=== PATIENT | male | born 1945 | race Caucasian/White ===

== ENCOUNTER 2023-08-13 08:19 | Emergency (ER) | payer OTHER, SELFPAY ==
[2023-08-13 08:26] VITALS: BP 126/89
[2023-08-13 08:39] VITALS: BP 138/83
[2023-08-13 09:00] VITALS: BP 135/87
[2023-08-13 09:04] LABS: % Basophils 0.7 % (0-2); % Eosinophils 1.8 % (0-6); % Immature Granulocytes 0.5 % (0-0.5); % Lymphocytes 26.9 % (20.5-51.1); % Monocytes 9.7 % (1.7-9.3); % Neutrophils 60.4 % (42.2-75.2); Absolute Basophils 0.1 10^3/uL (0-0.2); Absolute Eosinophils 0.2 10^3/uL (0-0.7); Absolute Immature Granulocytes 0.1 10^3/uL (0-0.05); Absolute Lymphocytes 2.9 10^3/uL (1.2-3.4); Absolute Monocytes 1.1 10^3/uL (0.1-0.6); Absolute Neutrophils 6.6 10^3/uL (1.4-6.5); Hematocrit 49.3 % (39.0-52.0); Hemoglobin 17.7 g/dL (13.0-18.0); Mean Corp Hgb Conc. 35.9 g/dL (33.0-37.0); Mean Platelet Volume 9.4 fL (7.4-10.4); Nucleated Red Blood Cells % 0 % (-); Platelet Count 443 10^3/uL (130-400); Red Blood Cell Count 5.36 10^6/uL (4.70-6.10); Red Cell Dist. Width 13.7 % (11.5-14.5); White Blood Cell Count 10.9 10^3/uL (4.8-10.8)
--- NOTE | 2023-08-13 09:06 | ED.GENMED ---
History of Present Illness
General
Chief Complaint: Heart Rate Problem
Source: patient
Exam Limitations: none
Time Seen by Provider: 08/13/23 08:28
Nursing documentation reviewed up to this point in time: agreed with
Travel History
Have you had any contact with someone who has COVID-19?: No
Do you have any symptoms of coronavirus? Fever > 100 degrees, chills, cough, shortness of breath, sore throat, loss of taste or smell, muscle aches, or headache?: No
History of Present Illness
History of Present Illness:
78-year-old male presents emergency department complaining of feeling his heart going fast. He denies any chest pain or shortness of breath. This has been ongoing since Saturday. No aggravating or relieving factors. He has been taking extra doses
of diltiazem. He follows with Dr. Valentin. He did not contact his private tutor.
Past History
Past History
ED Past Medical History: Arrthythmia (Paroxysmal atrial fibrillation), GERD, HTN, Hypercholesterolemia and Other (incidental iliac aneurysm, AAA)
ED Past Surgical History: Cardiac (Ablation, Cardioversion X2) and Other (abdominal sarcoma, splenectomy)
Social History
Tobacco: Non-smoker
Alcohol: None
Drug: None
Personal:
Living: with family
Employment: Retired
Family History
Family History: Hypertension; Negative Early CAD or Sudden
Review of Systems
Review of Systems
Allergies reviewed?: Yes
All Other Systems: Not applicable
Constitutional: Reports no symptoms
EENT: Reports no symptoms
Respiratory: Reports no symptoms
Cardiac: Reports palpitations
ABD/GI: Reports no symptoms
: Reports no symptoms
Musculoskeletal: Reports no symptoms
Skin: Reports no symptoms
Neurological: Reports no symptoms
Endocrine: Reports no symptoms
Hematologic/Lymphatic: Reports no symptoms
Psychiatric: Reports no symptoms
Phy Exam
Physical Exam
Physical Exam:
Physical Exam
General: no apparent distress, not acutely ill
Neck: supple. no meningeal signs. normal posterior pharynx
Heart: s1/s2 tachycardia, no murmur. equal radial
pulses.
HEENT: Pupils equal round reactive to light, EOMI
Lungs: no acute respiratory distress. clear bilaterally
Abdomen: normal bowel sounds. not tender. no CVAT
Neuro: alert and oriented. no focal neurological deficits cranial nerves II through XII intact
Skin: no rash
Psychiatric: well kept. interactive and cooperative
Extremities: no edema. no calf tenderness. negative homans. good distal pulses
Course
Orders/Labs/Results
Orders:
Orders
08/13/23 08:21
EKG [Electrocardiogram (*1)] Urgent
Reason for Study: Atrial Fibrillation
EKG- Treatment ONCE
08/13/23 08:39
IV Insert/Care/Rem.- Treatment PRN
08/13/23 08:40
Cardiac Monitoring- Treatment ONCE
08/13/23 08:45
Electrocardiogram (*1) Urgent
Reason for Study: Palpitations
08/13/23 08:48
Complete Blood Count/With Diff Urgent
Comprehensive Metabolic Panel Urgent
Magnesium Urgent
TSH Reflex To Free T4 Urgent
08/13/23 08:50
EKG- Treatment ONCE
Abnormal Lab Results
08/13/23
08:48
WBC 10.9 H 10^3/uL
(4.8-10.8)
MCH 33.0 H pg
(27.0-31.0)
Plt Count 443 H 10^3/uL
(130-400)
Abs Immat Gran (auto) 0.1 H 10^3/uL
(0-0.05)
Absolute Neuts (auto) 6.6 H 10^3/uL
(1.4-6.5)
Absolute Monos (auto) 1.1 H 10^3/uL
(0.1-0.6)
Monocytes % 9.7 H %
(1.7-9.3)
Glucose 111 H mg/dl
(70-99)
Total Bilirubin 2.3 H mg/dl
(0.2-1.3)
08/13/23 08:48
08/13/23 08:48
Vital Signs
Initial and Last Documented VS:
Initial Vital Signs
Temp Pulse Resp BP Pulse Ox
98.3 F 118 16 126/89 95
08/13/23 08:26 08/13/23 08:26 08/13/23 08:26 08/13/23 08:26 08/13/23 08:26
Last Documented Vital Signs
Temp Pulse Resp BP Pulse Ox
98.3 F 76 17 138/83 94
08/13/23 08:26 08/13/23 08:45 08/13/23 08:45 08/13/23 08:39 08/13/23 08:45
MDM/Problems Addressed
Differential Diagnosis Includes:
Atrial flutter
MDM/Problems Addressed:
78-year-old male with atrial flutter, spontaneously converted to sinus rhythm with first-degree AV block. Discussed with Dr. TIMA Bradford, who agrees patient may be discharged and follow-up in office.
Chronic conditions affecting care: Arrhythmia
Acute Exacerbation and/or Progression of Chronic Illness: Arrhythmia
*Pulse Oximetry
Patient hypoxic: no
*EKG
Interpreted by ED Provider?: Yes
EKG Intrepretation Date: 08/13/23
EKG Intrepretation Time: 08:24
Interpretation: abnormal
Comparison EKG: changes noted
Heart Rate: 115
Rate: tachycardiac
Rhythm: atrial flutter
[place]: normal axis
Interval: normal interval
QRS Pattern: normal QRS
Ischemia: no ischemia
*Library Assistant Interpretation
Rate: normal
Interpretation: abnormal
Heart Rate: 70
Rhythm: sinus
*Critical Care Note
Total Time (30-74mins, 75-104mins- exclusive of procedures): Not Applicable
ED Attending Note
-
Portions of this chart may have been created with voice recognition software.� Occasional wrong word or��sound alike� substitutions may have occurred due to the inherent limitations of voice recognition software.
Discharge Plan
Departure
Prescriptions:
No Action
atorvastatin 20 MG tablet
20 mg PO HS
famotidine 20 MG tablet
20 mg PO HS
multivitamin with folic acid [Tab-A-Karen] 1 TABLET tablet
1 tab PO HS
Xarelto 20 MG tablet
20 mg PO HS
dofetilide 250 MCG capsule
250 mcg PO Q12 Qty: 60 0RF
diltiazem HCl 120 MG capsule,extended release 24hr
120 mg PO HS Qty: 1 0RF
Referrals:
Jose C Antoine DO [Family Provider] -
Interventions
Interventions:
*Risk Screen - Suicide Last Done: 08/13/23 08:26
*General Assessment Last Done: 08/13/23 08:26
*Neglect/Abuse Screening Last Done: 08/13/23 08:26
ED- Fall Risk Assessment Last Done: 08/13/23 08:42
*ED COVID-19 Vaccine History Last Done: 08/13/23 08:42
ED- Cardiac Assessment Last Done: 08/13/23 08:43
ED- Pulmonary Assessment Last Done: 08/13/23 08:44
[2023-08-13 09:20] LABS: ALT (SGPT) 38 U/L (0-50); AST (SGOT) 35 U/L (17-59); Albumin 3.9 g/dl (3.5-5.0); Alkaline Phosphatase 100 U/L (38-126); Blood Urea Nitrogen 19 mg/dl (9-20); Calcium 9.1 mg/dl (8.4-10.2); Carbon Dioxide 27 mmol/L (22-30); Chloride 105 mmol/L (98-107); Glucose 111 mg/dl (70-99); Magnesium 2.1 mg/dl (1.6-2.3); Potassium 3.5 mmol/L (3.5-5.1); Sodium 137 mmol/L (135-145); Total Bilirubin 2.3 mg/dl (0.2-1.3); Total Protein 6.8 g/dl (6.3-8.2); eGFR > 60.00
[2023-08-13 09:46] LABS: TSH Reflex To Free T4 0.83 uIU/ml (0.47-4.68)
[2023-08-13 10:00] VITALS: BP 129/88
== END 2023-08-13 10:28 | disposition home or self-care (01) ==
LOC: EMR 08:19
PROVIDERS: EMERGENCY PHYSICIAN Emergency Medicine; FAMILY PHYSICIAN Internal Medicine
DX: I48.92 Unspecified atrial flutter (principal); I44.0 Atrioventricular block, first degree; I48.0 Paroxysmal atrial fibrillation; I10 Essential (primary) hypertension; I72.3 Aneurysm of iliac artery; K21.9 Gastro-esophageal reflux disease without esophagitis; E78.00 Pure hypercholesterolemia, unspecified; M19.90 Unspecified osteoarthritis, unspecified site; Z85.028 Personal history of other malignant neoplasm of stomach; Z85.828 Personal history of other malignant neoplasm of skin; Z90.81 Acquired absence of spleen
CPT/HCPCS: 99284; 80053; 83735; 84443; 85025; 93005

== ENCOUNTER 2024-01-10 06:48 | Emergency (ER) | payer OTHER, SELFPAY ==
[2024-01-10] VITALS (17 sets, daily range): BP systolic 114–142; BP diastolic 75–99; BMI 27.8
[2024-01-10 07:36] LABS: % Eosinophils 2.7 % (0-6); % Immature Granulocytes 0.6 % (0-0.5); % Lymphocytes 23.6 % (20.5-51.1); % Monocytes 11.9 % (1.7-9.3); % Neutrophils 60.2 % (42.2-75.2); Absolute Basophils 0.1 10^3/uL (0-0.2); Absolute Eosinophils 0.2 10^3/uL (0-0.7); Absolute Immature Granulocytes 0.1 10^3/uL (0-0.05); Absolute Lymphocytes 2.1 10^3/uL (1.2-3.4); Absolute Monocytes 1.1 10^3/uL (0.1-0.6); Absolute Neutrophils 5.4 10^3/uL (1.4-6.5); Hematocrit 44.3 % (39.0-52.0); Hemoglobin 16.2 g/dL (13.0-18.0); Mean Corp Hgb Conc. 36.6 g/dL (33.0-37.0); Mean Corpuscular Hgb 32.9 pg (27.0-31.0); Mean Corpuscular Volume 89.9 fL (80.0-94.0); Mean Platelet Volume 9.1 fL (7.4-10.4); Nucleated Red Blood Cells % 0 % (-); Platelet Count 426 10^3/uL (130-400); Red Blood Cell Count 4.93 10^6/uL (4.70-6.10); Red Cell Dist. Width 13.9 % (11.5-14.5); White Blood Cell Count 8.9 10^3/uL (4.8-10.8)
[2024-01-10 07:48] LABS: ALT (SGPT) 25 U/L (0-50); AST (SGOT) 29 U/L (17-59); Albumin 4.2 g/dl (3.5-5.0); Alkaline Phosphatase 101 U/L (38-126); Blood Urea Nitrogen 20 mg/dl (9-20); Calcium 9.3 mg/dl (8.4-10.2); Carbon Dioxide 26 mmol/L (22-30); Chloride 105 mmol/L (98-107); Estimated Creatinine Clearance 78 ml/min; Glucose 109 mg/dl (70-99); Potassium 3.7 mmol/L (3.5-5.1); Sodium 139 mmol/L (135-145); Total Bilirubin 1.6 mg/dl (0.2-1.3); Total Protein 7.3 g/dl (6.3-8.2); eGFR > 60.00
[2024-01-10 07:49] LABS: INR 1.72
[2024-01-10 07:50] LABS: APTT 32.1 Sec (23.4-35.0)
--- NOTE | 2024-01-10 07:51 | ED.GENMED ---
History of Present Illness
<Quinten Stevens PA-C - Last Filed: 01/10/24 11:48>
General
Chief Complaint: Heart Rate Problem
Source: patient
Exam Limitations: none
Time Seen by Provider: 01/10/24 07:29
History of Present Illness
History of Present Illness:
78-year-old male with paroxysmal atrial fibrillation anticoagulated on Xarelto presents with episode of A-fib since Saturday, 5 days ago. He has this intermittently. He has a regimen of which he takes an extra 240 mg of diltiazem. He has been doing
this for the past 4 days without any relief. He states he typically breaks back into a sinus rhythm. He felt himself go into this Saturday evening at 9 PM. He follows with cardiology. He denies lightheadedness shortness of breath chest pain. He
denies any leg swelling.
Past History
<Quinten Stevens PA-C - Last Filed: 01/10/24 11:48>
Past History
ED Past Medical History: Arrthythmia (Paroxysmal atrial fibrillation), GERD, HTN, Hypercholesterolemia and Other (incidental iliac aneurysm, AAA)
ED Past Surgical History: Cardiac (Ablation, Cardioversion X2) and Other (abdominal sarcoma, splenectomy)
Social History
Tobacco: Non-smoker
Alcohol: None
Drug: None
Personal:
Living: with family
Employment: Retired
Family History
Family History: Hypertension; Negative Early CAD or Sudden
Phy Exam
<BRISA Hill Last Filed: 01/10/24 11:48>
Physical Exam
Physical Exam:
General: Comfortable appearing male no acute respiratory distress
HEENT: Normocephalic atraumatic
Heart: Tachycardic and irregular
Lungs: Clear no wheeze
Extremities: No cyanosis or edema
Skin: Warm no rash
Course
<Quinten Stevens PA-C - Last Filed: 01/10/24 11:48>
Orders/Labs/Results
Orders:
Orders
01/10/24 06:56
Electrocardiogram (*1) Urgent
Reason for Study: Atrial Fibrillation
EKG- Treatment ONCE
01/10/24 07:27
Complete Blood Count/With Diff Urgent
Comprehensive Metabolic Panel Urgent
PTT Urgent
Prothrombin Time Urgent
01/10/24 07:48
Diltiazem HCl [Cardizem] 20 mg IV NOW STA
01/10/24 08:43
Diltiazem HCl [Cardizem] 20 mg IV NOW STA
01/10/24 10:00
Propofol [Diprivan] 20 ml .ROUTE .STK-MED
01/10/24 10:09
EKG [Electrocardiogram (*1)] Urgent
Reason for Study: Atrial Fibrillation
EKG- Treatment ONCE
Abnormal Lab Results
01/10/24
07:27
MCH 32.9 H pg
(27.0-31.0)
Plt Count 426 H 10^3/uL
(130-400)
Abs Immat Gran (auto) 0.1 H 10^3/uL
(0-0.05)
Absolute Monos (auto) 1.1 H 10^3/uL
(0.1-0.6)
Immature Gran % 0.6 H %
(0-0.5)
Monocytes % 11.9 H %
(1.7-9.3)
PT 20.0 H Sec
(11.4-14.6)
Glucose 109 H mg/dl
(70-99)
Total Bilirubin 1.6 H mg/dl
(0.2-1.3)
01/10/24 07:27
01/10/24 07:27
Vital Signs
Initial and Last Documented VS:
Initial Vital Signs
Temp Pulse Resp BP Pulse Ox
97.5 F 83 18 141/93 95
01/10/24 06:51 01/10/24 06:51 01/10/24 06:51 01/10/24 06:51 01/10/24 06:51
Last Documented Vital Signs
Temp Pulse Resp BP Pulse Ox
98.0 F 61 13 128/79 95
01/10/24 10:20 01/10/24 11:30 01/10/24 11:30 01/10/24 11:30 01/10/24 11:30
<Dawood Barnhart, DO - Last Filed: 01/10/24 10:20>
Orders/Labs/Results
Orders:
Orders
01/10/24 06:56
Electrocardiogram (*1) Urgent
Reason for Study: Atrial Fibrillation
EKG- Treatment ONCE
01/10/24 07:27
Complete Blood Count/With Diff Urgent
Comprehensive Metabolic Panel Urgent
PTT Urgent
Prothrombin Time Urgent
01/10/24 07:48
Diltiazem HCl [Cardizem] 20 mg IV NOW STA
01/10/24 08:43
Diltiazem HCl [Cardizem] 20 mg IV NOW STA
01/10/24 10:00
Propofol [Diprivan] 20 ml .ROUTE .STK-MED
01/10/24 10:09
EKG [Electrocardiogram (*1)] Urgent
Reason for Study: Atrial Fibrillation
EKG- Treatment ONCE
Abnormal Lab Results
01/10/24
07:27
MCH 32.9 H pg
(27.0-31.0)
Plt Count 426 H 10^3/uL
(130-400)
Abs Immat Gran (auto) 0.1 H 10^3/uL
(0-0.05)
Absolute Monos (auto) 1.1 H 10^3/uL
(0.1-0.6)
Immature Gran % 0.6 H %
(0-0.5)
Monocytes % 11.9 H %
(1.7-9.3)
PT 20.0 H Sec
(11.4-14.6)
Glucose 109 H mg/dl
(70-99)
Total Bilirubin 1.6 H mg/dl
(0.2-1.3)
01/10/24 07:27
01/10/24 07:27
Vital Signs
Initial and Last Documented VS:
Initial Vital Signs
Temp Pulse Resp BP Pulse Ox
97.5 F 83 18 141/93 95
01/10/24 06:51 01/10/24 06:51 01/10/24 06:51 01/10/24 06:51 01/10/24 06:51
Last Documented Vital Signs
Temp Pulse Resp BP Pulse Ox
98.0 F 61 13 128/79 95
01/10/24 10:20 01/10/24 11:30 01/10/24 11:30 01/10/24 11:30 01/10/24 11:30
Procedures
<Dawood Barnhart, DO - Last Filed: 01/10/24 10:20>
Moderate Sedation
ASA Risk Score: Class II
Chart and allergies reviewed: Yes
Consent for anesthesia obtained: Yes
Time out completed (validating right patient & procedure): Yes
Moderate Sedation Start Time(when first medication is given): 10:10
History of difficult intubation: No
Airway free of obstruction: Yes
Patient has a gag reflex: Yes
Patient is able to open mouth: Yes
Patient has no dentures: Yes
Patient has no loose teeth: Yes
Medication administered by Provider during Moderate Sedation: IV Propofol (mg)
Total dose administered: 75
Time drug administered: 10:10
Moderate Sedation Procedure End Time: 10:21
Comment: Time out: 1009
Cardioversion
Indication:: Afib
Performed by:: Dawood Barnhart DO
Synchronized?: Yes
Energy Used: 200 joules
Number of attempts: 1
Successful?: Yes
Complications: None
ASA Risk Score: Class II
Any reaction or bad outcome to prior sedation/anesthesia?: No history of a reaction
Sedation level to be attained: moderate
Chart and allergies reviewed: Yes
Patient reassessed prior to sedation: Yes
Time out completed at (validating right patient & procedure): 10:09
History of difficult intubation: No
Airway free of obstruction: Yes
Patient has a gag reflex: Yes
Patient is able to open mouth: Yes
Patient has no dentures: Yes
Patient has no loose teeth: Yes
Total dose administered: 75
Time drug administered: 10:10
Start Time: 10:10
Stop Time: 10:21
<Quinten Stevens PA-C - Last Filed: 01/10/24 11:48>
MDM/Problems Addressed
Differential Diagnosis Includes:
Patient presents with sensation of rapid heart rate. Consider arrhythmia versus electrolyte abnormality. Watch for hypotension. No signs of heart failure.
EKG reviewed and demonstrate atrial fibrillation with rapid response with a rate of 125.
Patient has an acute on chronic episode of atrial fibrillation. This is not breaking on his own.
Will try Cardizem bolus at 20 mg. Check labs for electrolyte abnormality.
If medication unsuccessful labs okay consider cardioversion.
<Quinten Stevens PA-C - Last Filed: 01/10/24 11:48>
Update Note
Update Note:
Cardizem bolus x 2 with patient persistent in rapid A-fib. Written consent obtained for cardioversion. Sedation provided by emergency room attending. The patient was cardioverted using 200 J with synchronized cardioversion. This converted him
after 1 shock. Repeat EKG shows sinus rhythm with a rate of 62. Patient has recovered from his sedation and has a ride home. Stable for discharge
ED Attending Note
<Quinten Stevens PA-C - Last Filed: 01/10/24 11:48>
-
Portions of this chart may have been created with voice recognition software.� Occasional wrong word or��sound alike� substitutions may have occurred due to the inherent limitations of voice recognition software.
<Dawood Barnhart DO - Last Filed: 01/10/24 10:20>
ED Attending Note
Patient seen and examined by attending physician: Yes
I performed the substantive portion of visit, reviewed & personally made and approve the management plan that is documented in note by myself or ZULEMA.: Yes
ED Attending Note:
I have seen and evaluated the patient with a [id number] encounter. I have spoken to the advance practicer provider and involved in the medical history, the physical exam, medical decision making.
Evaluation and management service: agree unless noted differently below.
Results interpretation: agree unless noted differently below.
Focused HPI: 78-year-old male presenting for recurrent A-fib. He has a history of paroxysmal A-fib that usually resolves with extra diltiazem dosing at home. However, patient has been in persistent A-fib despite increasing his meds. He claims
compliance with Xarelto
Physical exam: Sitting bed comfortably. Heart tachycardic but also irregular
Medical Decision Making: Patient signed consent for cardioversion after 2 Cardizem boluses were given with no resolution of heart rate. Patient tolerated procedure well
Discharge Plan
Departure
Patient Disposition: Home (Routine Discharge)
Date of Disposition: 01/10/24
Time of Disposition: 11:47
Patient with high blood pressure during this ER visit?: No
Discharge Problem:
Atrial fibrillation with rapid ventricular response
Instructions: Atrial Fibrillation (DC), MODERATE SEDATION ADULT
Prescriptions:
No Action
atorvastatin 20 MG tablet
20 mg PO HS
famotidine 20 MG tablet
20 mg PO HS
multivitamin with folic acid [Tab-A-Karen] 1 TABLET tablet
1 tab PO HS
Xarelto 20 MG tablet
20 mg PO HS
dofetilide 250 MCG capsule
250 mcg PO Q12 Qty: 60 0RF
diltiazem HCl 120 MG capsule,extended release 24hr
120 mg PO HS Qty: 1 0RF
Referrals:
Jose C Antoine DO [Family Provider] -
Activity Restrictions/Additional Instructions:
Please return here if worse otherwise continue to follow-up with your stone sawyer.
Interventions
Interventions:
*Risk Screen - Suicide Last Done: 01/10/24 07:20
*General Assessment Last Done: 01/10/24 07:20
*Neglect/Abuse Screening Last Done: 01/10/24 07:20
ED- Fall Risk Assessment Last Done: 01/10/24 07:22
*ED COVID-19 Vaccine History Last Done: 01/10/24 07:20
ED- Cardiac Assessment Last Done: 01/10/24 07:22
ED- Pulmonary Assessment Last Done: 01/10/24 07:22
Discharge Date and Time
Print Language: IRISH
[2024-01-10] MEDS: CARDIZEM 20 MG IV ×2 (08:01→08:46)
== END 2024-01-10 12:31 | disposition home or self-care (01) ==
LOC: EMR 06:48
PROVIDERS: EMERGENCY PHYSICIAN Student in an Organized Health Care Education/Training Program; FAMILY PHYSICIAN Internal Medicine
DX: I48.91 Unspecified atrial fibrillation (principal); K21.9 Gastro-esophageal reflux disease without esophagitis; I10 Essential (primary) hypertension; E78.00 Pure hypercholesterolemia, unspecified; I71.40 Abdominal aortic aneurysm, without rupture, unspecified
CPT/HCPCS: 99283; 92960; 99152; 96374; 96376; 80053; 85025; 85610; 85730; 93005

== ENCOUNTER → 2024-02-12 11:33 | Outpatient (REF) | payer OTHER, SELFPAY | LOC: RAD 11:33 | PROVIDERS: ATTENDING PHYSICIAN Nurse Practitioner Family; FAMILY PHYSICIAN Internal Medicine; OTHER PHYSICIAN Surgery Surgical Oncology | DX: C49.9 Malignant neoplasm of connective and soft tissue, unspecified (principal) | CPT/HCPCS: 71270; 74178; Q9967 ==

== ENCOUNTER 2024-02-13 10:22 | Inpatient (IN) | payer OTHER, SELFPAY ==
[2024-02-13] VITALS (22 sets, daily range): BP systolic 109–144; BP diastolic 76–106; BMI 31.3
--- NOTE | 2024-02-13 07:45 | ED.GENMED ---
History of Present Illness
General
Chief Complaint: Breathing Problem
Time Seen by Provider: 02/13/24 07:36
History of Present Illness
History of Present Illness:
78-year-old male with history of A-fib on Xarelto presents to the emergency department for evaluation of shortness of breath and persistent dry cough. He notes that several weeks ago he opted to see a new retail assistant manager through [facility] who
discontinued his dofetilide and diltiazem and started him on nadolol. Over the past week he has noted symptoms consistent with A-fib and variable heart rates. He states 'I think I am in CHF'. He has been compliant with his Xarelto.
Past History
Past History
ED Past Medical History: Arrthythmia (Paroxysmal atrial fibrillation), GERD, HTN, Hypercholesterolemia and Other (incidental iliac aneurysm, AAA)
ED Past Surgical History: Cardiac (Ablation, Cardioversion X2) and Other (abdominal sarcoma, splenectomy)
Social History
Tobacco: Non-smoker
Alcohol: None
Drug: None
Personal:
Living: with family
Employment: Retired
Family History
Family History: Hypertension; Negative Early CAD or Sudden
Review of Systems
Review of Systems
Allergies reviewed?: Yes
All Other Systems: ROS reviewed and negative except as documented in HPI and ROS
Phy Exam
Physical Exam
Physical Exam:
GEN: Well appearing, NAD, WDWN
Eyes: PERRLA, EOMs intact, no scleral icterus
HENT: NCAT, oral mucosa moist, no JVD
Lungs: Mildly tachypneic, on supplemental oxygen, diminished bibasilar breath sounds
Cardiac: Tachycardic, irregular, no murmurs
Neuro: AO x 3
MSK: No gross deformity or ecchymosis. No edema. No digital clubbing
Skin: No rashes, petechiae. Normal color, no pallor or jaundice.
Psych: Calm, cooperative, proper hygiene
Scores
Heart Failure Risk
Heart Failure Risk Score: Yes
History of Stroke or TIA: No
History of intubation for respiratory distress: No
Heart rate on ED arrival >/= 110: Yes
SaO2 <90% on arrival on room air: Yes
HR >/=110 during 3min walk test (or too ill to perform test): Yes
ECG has acute ischemic changes: Yes
Urea >/=12mmol/L (BUN 33.6mg/dL): No
Serum CO2>/=35mmol/L: No
Troponin I or T elevated to [place] Level (0.4mg/dL): No
NT-proBNP >/=5,000ng/L (5,000pg/ml): Yes
HF Risk Score: 6
Admission Status: VERY HIGH RISK 55.3% Consider admission to hospital
Course
Orders/Labs/Results
Orders:
Orders
02/13/24 07:24
EKG [Electrocardiogram (*1)] Urgent
Reason for Study: Shortness of Breath
EKG- Treatment ONCE
02/13/24 07:34
CXR2 [CR Chest - 2 Views ] Urgent
Comment:
Reason For Exam: shortness of breath
02/13/24 07:43
Diltiazem 125 mg/125 ml Nss [Cardizem] 125 mg in 125 ml .ROUTE .STK-MED
Diltiazem HCl [Cardizem] 25 mg .ROUTE .STK-MED ONE
02/13/24 07:45
Diltiazem 125 mg/125 ml Nss [Cardizem] 125 mg in 125 ml IV PER PROTOCOL
Initial dose in mg/hr, then titrate:: 5
Titrate to keep:: Heart rate 80-100 bpm
Titrate by mg/hr:: 5 mg/hr
Frequency of titrations (minutes):: 15
Maximum dose in mg/hr:: 15
Diltiazem HCl [Cardizem] 20 mg IV NOW STA
02/13/24 07:48
Complete Blood Count/With Diff Urgent
Comprehensive Metabolic Panel Urgent
NT-proBNP Urgent
Troponin I Urgent
02/13/24 08:08
Diltiazem HCl [Cardizem] 25 mg IV NOW STA
02/13/24 08:45
Furosemide [Lasix] 40 mg IV NOW STA
02/13/24 09:52
Admit/Transfer Patient As Directed
Co-Sign Provider:
Level of Care: Inpatient admission
Assign to:: IMU- Intermediate Care
Physician / Group: Shiva Marie
Diagnosis: Atrial fibrillation with Rapid Ventricular Response
Reason for Hospitalization: Atrial Fibrillation
Acute Decompensated Heart Failure
Expected length of stay greater than two midnights?: Yes
ELOS- Estimated Length of Stay in days: 2
I certify the patient meets the requirements for IP care: Yes
02/13/24 09:55
Code Status As Directed
Resuscitation Status: Full Code
Abnormal Lab Results
02/13/24
07:48
WBC 14.9 H 10^3/uL
(4.8-10.8)
RBC 4.37 L 10^6/uL
(4.70-6.10)
MCH 33.0 H pg
(27.0-31.0)
Abs Immat Gran (auto) 0.1 H 10^3/uL
(0-0.05)
Absolute Neuts (auto) 12.6 H 10^3/uL
(1.4-6.5)
Absolute Lymphs (auto) 0.9 L 10^3/uL
(1.2-3.4)
Absolute Monos (auto) 1.3 H 10^3/uL
(0.1-0.6)
Neutrophils % 84.4 H %
(42.2-75.2)
Lymphocytes % 6.2 L %
(20.5-51.1)
Sodium 134 L mmol/L
(135-145)
Carbon Dioxide 21 L mmol/L
(22-30)
BUN 25 H mg/dl
(9-20)
Glucose 125 H mg/dl
(70-99)
Total Bilirubin 3.2 H mg/dl
(0.2-1.3)
02/13/24 07:48
02/13/24 07:48
Vital Signs
Initial and Last Documented VS:
Initial Vital Signs
Temp Pulse Resp BP Pulse Ox
99 F 96 16 144/106 91
02/13/24 07:21 02/13/24 07:21 02/13/24 07:21 02/13/24 07:21 02/13/24 07:21
Last Documented Vital Signs
Temp Pulse Resp BP Pulse Ox
99 F 130 16 123/81 95
02/13/24 07:21 02/13/24 09:45 02/13/24 09:45 02/13/24 09:44 02/13/24 09:45
MDM/Problems Addressed
MDM/Problems Addressed:
78-year-old male arrives in rapid atrial fibrillation with signs of acute congestive heart failure evidenced by hypoxia and elevated BNP as well as pulmonary edema seen on chest x-ray. CHF is likely on the basis of uncontrolled A-fib. He recently
discontinued antiarrhythmic and calcium channel yvonne in favor of beta-yvonne at the discretion of an outside retail assistant manager. He will be admitted for IV rate control and diuresis. Do not feel he is a suitable candidate for cardioversion given the
acute decompensated CHF making sedation quite complicated
Comment
Comment:
EKG independently interpreted by me shows rapid atrial fibrillation at a rate of [address] depressions likely subendocardial ischemia, QTc of 441
*Critical Care Note
Total Time (30-74mins, 75-104mins- exclusive of procedures): 40 minutes
comment:
Critical care time: 40 minutes
Critical care time was exclusive of: Separately billable procedures, treating other patients, and teaching time
Critical care was necessary to treat or prevent imminent or life-threatening deterioration of the following conditions: Rapid atrial fibrillation/decompensated CHF
Critical care time spent personally by me on the following activities:
[x] Review of old charts
[x] Obtaining history from patient or surrogate
[x] Ordering and review of the laboratory studies
[x] Ordering and review of radiographic studies
[x] Ordering and performing treatments and interventions
[x] Patient patient's response to treatment
[x] Development of treatment plan with patient or surrogate
ED Attending Note
-
Portions of this chart may have been created with voice recognition software.� Occasional wrong word or��sound alike� substitutions may have occurred due to the inherent limitations of voice recognition software.
Discharge Plan
Departure
Patient Disposition: Admit
Date of Disposition: 02/13/24
Time of Disposition: 08:46
Admit to: IMU
Presentation/result/management discussed w/ accepting MD/DO: Hospitalist
Discharge Problem:
Atrial fibrillation, rapid, Acute decompensated heart failure
Interventions
Interventions:
*Risk Screen - Suicide Last Done: 02/13/24 07:21
*General Assessment Last Done: 02/13/24 07:21
*Neglect/Abuse Screening Last Done: 02/13/24 07:21
ED- Fall Risk Assessment Last Done: 02/13/24 07:40
*ED COVID-19 Vaccine History Last Done: 02/13/24 07:40
ED- Cardiac Assessment Last Done: 02/13/24 07:40
ED- Pulmonary Assessment Last Done: 02/13/24 07:40
[2024-02-13] MEDS: CARDIZEM 20 MG IV (07:48)
[2024-02-13] MEDS: CARDIZEM 125 IV ×2 (07:49→16:52)
[2024-02-13 07:58] LABS: % Basophils 0.4 % (0-2); % Eosinophils 0.1 % (0-6); % Immature Granulocytes 0.5 % (0-0.5); % Lymphocytes 6.2 % (20.5-51.1); % Monocytes 8.4 % (1.7-9.3); % Neutrophils 84.4 % (42.2-75.2); Absolute Basophils 0.1 10^3/uL (0-0.2); Absolute Immature Granulocytes 0.1 10^3/uL (0-0.05); Absolute Lymphocytes 0.9 10^3/uL (1.2-3.4); Absolute Monocytes 1.3 10^3/uL (0.1-0.6); Absolute Neutrophils 12.6 10^3/uL (1.4-6.5); Hematocrit 40.2 % (39.0-52.0); Hemoglobin 14.4 g/dL (13.0-18.0); Mean Corp Hgb Conc. 35.8 g/dL (33.0-37.0); Mean Platelet Volume 10.1 fL (7.4-10.4); Nucleated Red Blood Cells % 0.1 % (-); Platelet Count 334 10^3/uL (130-400); Red Blood Cell Count 4.37 10^6/uL (4.70-6.10); Red Cell Dist. Width 13.7 % (11.5-14.5); White Blood Cell Count 14.9 10^3/uL (4.8-10.8)
[2024-02-13] MEDS: CARDIZEM 25 MG IV (08:13)
[2024-02-13 08:16] LABS: ALT (SGPT) 35 U/L (0-50); AST (SGOT) 41 U/L (17-59); Albumin 3.9 g/dl (3.5-5.0); Alkaline Phosphatase 82 U/L (38-126); Blood Urea Nitrogen 25 mg/dl (9-20); Calcium 9.3 mg/dl (8.4-10.2); Carbon Dioxide 21 mmol/L (22-30); Chloride 103 mmol/L (98-107); Estimated Creatinine Clearance 57 ml/min; Glucose 125 mg/dl (70-99); Potassium 4.2 mmol/L (3.5-5.1); Sodium 134 mmol/L (135-145); Total Bilirubin 3.2 mg/dl (0.2-1.3); Total Protein 6.6 g/dl (6.3-8.2); eGFR 55.53
[2024-02-13 08:22] LABS: NT-proBNP 5370 pg/ml; Troponin I < 0.012 ng/ml
--- NOTE | 2024-02-13 08:58 | EDRN ---
the pt is resting in stretcher in the lowest position, side rails up x2, call wagner within reach, HOB elevated, the pt is currently still in Afib in the 120's with Cardizem gtt @ 15mg/hour, no c/o chest pain, the pt stated to this RN that SOB has
decreased, the pts Sp02 was 92% on 2L NC, this RN notified the provider Khris BAUTISTA and this RN titrated the pts 02 up to 4L NC, the pts Sp02 is currently 96%, last BP 121/87 (97), will continue to monitor the pt closely
--- NOTE | 2024-02-13 09:06 | HPS.HSE ---
Addendum entered and electronically signed by Saurabh Simmons MD, Resident 02/18/24 10:09:
Per CDI clarification. #Assessment change.
Patient with
1. Acute Hypoxemic Respiratory Failure
Addendum entered and electronically signed by Shiva Marie MD 02/13/24 20:49:
Attending Addendum-
I performed a history and physical exam of the patient and discussed his management with the resident. I reviewed the resident's note and agree with the documented findings and plan of care CC/HPI- Patient presents from home for sob and cough. Feels
that he is in a fib and has been consistent for 7 days. Has not reached out to PCP or lighting technician. Recently taken off tikosyn and cardizem and switched to nadolol. In ed found to be in CHF and rapid a fib. Full 12 point ROS reviewed and negative
except as documented Exam- vitals reviewed in EMR GEN-nad heart irreg irreg and tachycardic, lungs crackles at bases abd soft LE no edema Plan:
# Acute Hypoxemic Respiratory Failure
- from CHF and rapid a fib
- wean o2 as tolerated
# Rapid Atrial Fibrillation
- cont cardizem gtt for now
- DC nadolol
- cards c/s
- may attempt CV and and or rhythm controlling meds as patient is symptomatic
- cont xarelto
# AE HFmrEF
- cont IV lasix
- daily weights fluid restrict
- check echo
- cards c/s
- check BMP in am
# Leukocytosis
- trend
- seems more stress related
- no signs of infection
- repeat CBC in am
# KEYUR
- likely prerenal from CHF
- repeat BMP in am
- check feurea if worsens
# HLD
- cont atorvastatin
# Gerd
- cont famotidine
DVT-p- xarelto
Dispo eventual DC home with HC
Time spent coordinating care, review of plan of care with resident, personally reviewed previous records in EMR, med rec, labs, radiology, d/w nursing�- 76 mins
Original Note:
Family Physician
-
Family Physician: Jose C Antoine
Chief Complaint
-
A-fib with RVR
History of Present Illness
This is an 78-year-old male with past medical history of A-fib on Xarelto, GERD, hypertension, hypercholesterolemia who presents to ED for symptoms of persistent dry cough and shortness of breath. Patient reports nonproductive cough that started
last night. He reports shortness of breath has been ongoing for the past 3 days. He was recently seen in ER 01/02/2024 and was found to be in rapid A-fib. Patient had CV in ER. He reports he follows Dr. Valentin outpatient but did seek a
second opinion from lighting technician at [place] 2 weeks ago who told him to stop Tikosyn and Cardizem and instead put him on rate control therapy with nadolol 20 mg twice daily. Today, he reports he felt fatigued since this change was made, as well as
shortness of breath that started 3 days ago and new onset nonproductive cough that started last night. Hence he decided to come to the ED for evaluation.
Medical History
Past Medical History
Past Medical History: Reports Other (Proximal atrial fibrillation, GERD, hypertension, hypercholesterolemia, incidental iliac aneurysm, )
Past Surgical History: Reports Other (Cardiac ablation 2013, cardioversion x 2, splenectomy)
Social History
Tobacco: Non-smoker
Alcohol: None
Drug: None
Personal:
Living: With Family
Employment: Retired
Family History
Family History: Not pertinent
Allergies / Home Medications
Allergies reflects when Allergies were last updated in [employer] [facility].
Home Medications with original date entered in [employer] [facility]
Allergy/Medication List:
Allergies
Allergy/AdvReac Type Severity Reaction Status Date / Time
No Known Drug Allergies Allergy Unknown Unknown Verified 02/13/24 07:20
Home Medications
atorvastatin 20 mg tablet 20 mg PO HS High cholesterol 03/31/13
famotidine 20 mg tablet 20 mg PO HS Gastrointestinal issue 01/19/19
multivitamin with folic acid 400 mcg tablet (Tab-A-Karen) 1 tab PO HS Supplement 01/19/19
rivaroxaban 20 mg tablet (Xarelto) 20 mg PO HS Blood clot prevention/tx 09/21/20
dextromethorphan-guaifenesin 30 mg-600 mg tablet extended hr (Mucinex DM) 1 tab PO [id number] PRN cough 02/13/24
nadolol 20 mg tablet 20 mg PO QPM 02/13/24
Review of Systems
-
Respiratory: Reports See HPI
Cardiac: Reports See HPI
Physical Exam
Vital Signs
Vital Signs
Temp Pulse Resp BP Pulse Ox
99 F 124 27 121/87 96
02/13/24 07:21 02/13/24 08:56 02/13/24 08:56 02/13/24 08:56 02/13/24 08:56
Physical Exam
General: No Apparent Distress and Conversant
HEENT: NormoCephalic and Anicteric
Respiratory: Rales (Bibasilar); No Wheezes, Crackles or Non Labored Respirations
Cardiac: S1/S2, Irregular Rhythm and JVD; No Murmur
GI: Soft, Non Tender, Non Distended and Normal Bowel Sounds
Musculoskeletal: No Clubbing, No Cyanosis and No Edema
Skin: Warm and Dry
Neuro: Awake, Alert, Oriented and AO x 3
Psych: Calm and Intact Judgment/Insight
Laboratory Results
-
02/13/24 07:48
02/13/24 07:48
Laboratory Results
Total Bilirubin 3.2 mg/dl (0.2-1.3) H 02/13/24 07:48
AST 41 U/L (17-59) 02/13/24 07:48
ALT 35 U/L (0-50) 02/13/24 07:48
Alkaline Phosphatase 82 U/L (38-126) 02/13/24 07:48
Troponin I < 0.012 ng/ml 02/13/24 07:48
Data Reviewed
-
Diagnostic Radiology: Report Reviewed by me and Discussed with Physician
Impression/Plan
-
Impression:
Acute HF unknown EF
Acute hypoxic respiratory insufficiency secondary to above
Atrial fibrillation with RVR
Leukocytosis
Conditions prior to admission
Hypertension
GERD
Hypercholesterolemia
Incidental iliac aneurysm findings
PVCs
History of stromal tumor s/p 2010
Plan
#Acute HF unknown EF
#Acute hypoxic respiratory insufficiency secondary to above
-BNP 5370
-Troponin 0.012
-Initiated on Lasix 40 mg IV x 1 in the ER
-Cardiology input appreciated
-Continue Lasix 40 mg IV daily
-Fluid restrict
-Daily weights
-I's and O's
-CXR patchy airspace opacities bilaterally consistent with pulmonary edema. No definite pleural effusion. No pneumothorax
-Echo ordered, currently pending
-Previous echo [facility] 09/22/2020 with EF 45% in the setting of persistent and rapid A-fib.
-O2 sats 96% on 4L oxygen on presentation
-Wean O2 as tolerated
-Follow BMP
#Atrial fibrillation with rapid RVR
-Cardizem drip initiated in the ER
-Cardiology input appreciated
-Amiodarone load with 400 mg TID for rate/rhythm control
-Continue anticoagulation with Xarelto
#Leukocytosis
Possibly stress-induced
Trend WBC
#Hypertension
-Blood pressure stable.
-Hold nadolol
-Continue IV Lasix diuresis
#GERD
-Continue famotidine
#Hypercholesterolemia
-Continue atorvastatin
#hx of iliac artery aneurysm
-Continue to monitor as outpatient
DVT prophylaxis; Xarelto
CODE STATUS: Full code
[2024-02-13] MEDS: LASIX 40 MG IV (09:09)
--- NOTE | 2024-02-13 09:13 | EDRN ---
Lasix IV was administered per providers orders, this RN educated the pt again on the use of the call wagner when he has to urinate, the pt verbally stated that he understood, HR in the 110-120's, Cardizem currently still @ 15mg/hour, will continue to
monitor the pt closely
--- NOTE | 2024-02-13 09:38 | EDRN ---
the pt pressed the call wagner and this RN entered the pts room, the pt stated that he needed to urinate, this RN unhooked the pt and the pt was able to ambulate to the bathroom and back with no issues, the pt had slight c/o SOB, the pt was placed
back on the monitor, the pt is resting in stretcher in the lowest position, side rails up x2, call wagner within reach, will continue to monitor the pt closely
--- NOTE | 2024-02-13 11:04 | EDRN ---
HOLD orders processed for the pt
--- NOTE | 2024-02-13 12:18 | EDRN ---
the pt is resting in stretcher in the lowest position, side rails up x2, HOB elevated, call wagner within reach, no s/s of distress, the pt is currently still in Afib in the 110-120's, the pt is currently still on Cardizem @ 15mg/hour, no c/o chest
pain, no c/o SOB currently, the pt is currently still on 4L NC Sp02 96%, the pt did order his lunch, the pt also continues to use the urinal with no issues, will continue to monitor the pt closely
--- NOTE | 2024-02-13 12:57 | CON.CAR ---
Addendum entered and electronically signed by Jose Love DO 02/13/24 16:32:
I saw and examined the patient.
The Shorthand Reporter's note was reviewed and I agree with the note.
Comment:
PCP: Dr. Antoine
Primary Bessemer Converter Blower: Dr. Valentin
Impression:
Acute HF unknown EF
Recurrent Afib
Previously paroxysmal Afib with PVI 2012 and 2016
previous sotalol therapy, stopped due to ineffectiveness 04/2020
most recent CV in [facility] 01/10/24
Chronic Tikosyn therapy from 04/2020 to 01/2024
Chronic Xarelto OAC
HTN
1st degree av block
Hyperlipidemia
PVCs
h/o stromal tumor s/p resection 2010
JENN[facility]ER 03/29/20: EF 60-65%, mod dilated LA, mildly dilated RA, no thrombus detected in KYLE, mild MR, mild AR
JENN[facility]ER 09/22/20: EF 45%, mild global hypokinesis normal RV size and function, mild to moderate MR, mild central aortic regurgitation
Plan:
Cont IV lasix diuresis
Check echo to evaluate left ventricular systolic function. Last TTE had EF 45%.
Long discussion regarding his recurrent atrial fibrillation and history of PVI x 2. He recently saw Dr. Bueno at [facility] for a second opinion and was taken off his Tikosyn and started on nadolol which she did not tolerate. He wants to continue to
follow with Dr. Valentin. Discussed amiodarone load with 400 mg TID while we continue to diurese and if he fails to covert over the admission and pending his rate control could consider cardioversion prior to d/c vs outpt. He will then follow up with
Dr Valentin to discuss further rhythm control and possible repeat PVI. Patient was previously on sotalol and Tikosyn, but both were stopped due to ineffectiveness. Patient had PVIs 2012 and 2016. Apparently cannot have Convergent MAZE due to
previous stromal surgery.
Trop negative.
He says he has not missed any doses of Xarelto
HPI: -Patient came to ER today with symptoms of orthopnea that started last night and is now being admitted with heart failure and cardiology has been consulted. As you recall the patient has a history of paroxysmal atrial fibrillation and had
previous PVI in 2012 and 2016. He recurred following his 2017 ablation and at that time was on sotalol which was discontinued in favor of Tikosyn. There was previous consideration for convergent maze, but previous stromal tumor incision made him
high risk and MAZE was not pursued. Patient was seen in ER on 01/02/2024 was found to be in rapid A-fib. Patient had CV in ER, but feels he recurred 01/15/24. Patient called the office to report recurrence of atrial fibrillation and he was
offered an office visit to discuss another ablation, but instead on the recommendation of physician friends decided to pursue a second opinion at [facility]. He saw the [facility] wireless sales consultant within the last 1 to 2 weeks and they had him stop Tikosyn and
Cardizem and instead put him on rate control therapy with nadolol 20 mg twice daily. He says he felt incredibly fatigued with twice daily dosing and that within the last week the dose was cut to nadolol 20 mg daily. He says that the [facility]
wireless sales consultant told him he was in A-fib in their office that day, but he did not feel that he was. Since the Tikosyn was stopped however he became increasingly symptomatic and felt that he was in A-fib. In the last 2 to 3 days he has started with
shortness of breath, bloating and orthopnea. He has not been sleeping due to orthopnea and nonproductive cough so he came to ER today and is being admitted with acute HF.
�
Original Note:
Consultation
Consultation Request
Date/Time Consultation Requested: 02/13/24
Date/Time Consultation Performed: 02/13/24
Requesting Provider: Dr. Marie
Performing Provider: Dr. Love
Reason for Consultation: Acute HF, Afib in RVR
Medical History
-
History of Present Illness:
Patient came to ER today with symptoms of orthopnea that started last night and is now being admitted with heart failure and cardiology has been consulted. As you recall the patient has a history of paroxysmal atrial fibrillation and had
previous PVI in 2012 and 2016. He recurred following his 2017 ablation and at that time was on sotalol which was discontinued in favor of Tikosyn. There was previous consideration for convergent maze, but previous stromal tumor incision made him
high risk and MAZE was not pursued. Patient was seen in ER on 01/02/2024 was found to be in rapid A-fib. Patient had CV in ER, but feels he recurred 01/15/24. Patient called the office to report recurrence of atrial fibrillation and he was
offered an office visit to discuss another ablation, but instead on the recommendation of physician friends decided to pursue a second opinion at [facility]. He saw the [facility] wireless sales consultant within the last 1 to 2 weeks and they had him stop Tikosyn and
Cardizem and instead put him on rate control therapy with nadolol 20 mg twice daily. He says he felt incredibly fatigued with twice daily dosing and that within the last week the dose was cut to nadolol 20 mg daily. He says that the [facility]
wireless sales consultant told him he was in A-fib in their office that day, but he did not feel that he was. Since the Tikosyn was stopped however he became increasingly symptomatic and felt that he was in A-fib. In the last 2 to 3 days he has started with
shortness of breath, bloating and orthopnea. He has not been sleeping due to orthopnea and nonproductive cough so he came to ER today and is being admitted with acute HF.
PMH:
h/o HFpEF admission 2020
Previously paroxysmal Afib with PVI 2012 and 2016
previous sotalol therapy, stopped due to ineffectiveness 04/2020
[facility] 01[facility]10[facility]
Chronic Tikosyn therapy from 04/2020 to 01/2024
Chronic Xarelto OAC
HTN
1st degree av block
Hyperlipidemia
PVCs
h/o stromal tumor s/p resection 2010
Past Medical History
Past Medical History: Other (in HPI)
Past Surgical History: Cardiac (PVI 2012 and 2016), Tonsilectomy and Other (stromal tumor resection and splenectomy)
Social History
Tobacco: Non-Smoker
Alcohol: Occasional
Drug: None
Personal:
Living: With Family
Family History
Family History: CAD and Cancer
Allergies / Home Medications
Allergy/AdvReac Type Severity Reaction Status Date / Time
No Known Drug Allergies Allergy Unknown Unknown Verified 02/13/24 07:20
�Medication �Instructions �Recorded �Confirmed �Type
atorvastatin 20 mg tablet 20 mg PO HS High cholesterol 03/31/13 02/13/24 History
famotidine 20 mg tablet 20 mg PO HS Gastrointestinal issue 01/19/19 02/13/24 History
multivitamin with folic acid 400 1 tab PO HS Supplement 01/19/19 02/13/24 History
mcg tablet (Tab-A-Karen)
rivaroxaban 20 mg tablet (Xarelto) 20 mg PO HS Blood clot 09/21/20 02/13/24 History
prevention/tx
dextromethorphan-guaifenesin 30 1 tab PO [id number] PRN cough 02/13/24 02/13/24 History
mg-600 mg tablet extended
hr (Mucinex DM)
nadolol 20 mg tablet 20 mg PO QPM Blood Pressure 02/13/24 02/13/24 History
Review of Systems
-
History Source: Patient
All other systems: Negative unless noted
Physical Exam
Vital Signs
Temp Pulse Resp BP Pulse Ox
98.5 F 122 19 126/88 96
02/13/24 12:23 02/13/24 12:23 02/13/24 12:23 02/13/24 12:23 02/13/24 12:23
GEN: No distress, awake, alert, oriented x3
HEENT: EOMI, MMM
LUNGS: Bibasilar rales without wheeze
CV: Irreg irreg and fast, S1/S2, difficult to appreciate murmur
ABD: soft, BS+, NT, ND
EXT: No clubbing, cyanosis, lesions or edema B/L
NEURO: Gross non-focal
SKIN: Warm, pink and dry. No rash
Lab Results
02/13/24 07:48
02/13/24 07:48
Troponin I < 0.012 ng/ml 02/13/24 07:48
Npe-[place] Pept 5370 pg/ml 02/13/24 07:48
Impression / Plan
-
PCP: Dr. Antoine
Primary Bessemer Converter Blower: Dr. Alcala
Impression:
Acute HF unknown EF
Persistent Afib
Previously paroxysmal Afib with PVI 2012 and 2016
previous sotalol therapy, stopped due to ineffectiveness 04/2020
most recent CV in [facility] 01/10/24
Chronic Tikosyn therapy from 04/2020 to 01/2024
Chronic Xarelto OAC
HTN
1st degree av block
Hyperlipidemia
PVCs
h/o stromal tumor s/p resection 2010
JENN[facility]ER 03/29/20: EF 60-65%, mod dilated LA, mildly dilated RA, no thrombus detected in KYLE, mild MR, mild AR
JENN[facility]ER 09/22/20: EF 45%, mild global hypokinesis normal RV size and function, mild to moderate MR, mild central aortic regurgitation
Plan:
-Patient came to ER today with symptoms of orthopnea that started last night and is now being admitted with heart failure and cardiology has been consulted. As you recall the patient has a history of paroxysmal atrial fibrillation and had
previous PVI in 2012 and 2016. He recurred following his 2017 ablation and at that time was on sotalol which was discontinued in favor of Tikosyn. There was previous consideration for convergent maze, but previous stromal tumor incision made him
high risk and MAZE was not pursued. Patient was seen in ER on 01/02/2024 was found to be in rapid A-fib. Patient had CV in ER, but feels he recurred 01/15/24. Patient called the office to report recurrence of atrial fibrillation and he was
offered an office visit to discuss another ablation, but instead on the recommendation of physician friends decided to pursue a second opinion at [facility]. He saw the [facility] wireless sales consultant within the last 1 to 2 weeks and they had him stop Tikosyn and
Cardizem and instead put him on rate control therapy with nadolol 20 mg twice daily. He says he felt incredibly fatigued with twice daily dosing and that within the last week the dose was cut to nadolol 20 mg daily. He says that the [facility]
wireless sales consultant told him he was in A-fib in their office that day, but he did not feel that he was. Since the Tikosyn was stopped however he became increasingly symptomatic and felt that he was in A-fib. In the last 2 to 3 days he has started with
shortness of breath, bloating and orthopnea. He has not been sleeping due to orthopnea and nonproductive cough so he came to ER today and is being admitted with acute HF.
-He feels a bit better following Lasix 40 mg IV x1 in the ER. He was not taking a diuretic prior to admission. Recommend Lasix 40 mg IV daily to start and if diuretic response slows then would increase to 40 mg IV BID.
-Check echo, ordered by me
-EF was 45% by [facility] 09/22/20, but that was in the setting of persistent and rapid Afib. Pending EF will need to adjust medical therapy.
-Suspect acute HF is related to rapid atrial arrhythmia so would prefer to follow a rhythm control strategy. Patient was previously on sotalol and Tikosyn, but both were stopped due to ineffectiveness. Patient had PVIs 2012 and 2016. He cannot have
Convergent MAZE due to previous stromal surgery. He would be interested in a 3rd PVI if he is a candidate and would be willing to consider amiodarone for rate/rhythm control as a bridge.
-He says he has not missed any doses of Xarelto
-Troponin undetectable x1, no chest pain and ECG without acute ischemic changes as reviewed by me. Would not check additional Troponin levels.
[2024-02-13] MEDS: PACERONE 400 MG PO ×2 (16:52→22:28)
[2024-02-13] MEDS: XARELTO 20 MG PO (16:54)
--- NOTE | 2024-02-13 18:13 | PTCARENOTE ---
Pt admitted from ED with rapid atrial fib and CHF. Pt with non productive cough, states he had a negative covid test at home today. Pt on diltiazem infusion at 15mg/hr. Telemetry shows rapid atrial fib at a rate @130's with SBP's 130's. Pt started
on amiodarone.
[2024-02-13] MEDS: PEPCID 20 MG PO (22:27)
[2024-02-13] MEDS: LIPITOR 20 MG PO (22:28)
[2024-02-13] MEDS: THERAGRAN 1 TABLET PO (22:28)
[2024-02-14] VITALS (13 sets, daily range): BP systolic 109–128; BP diastolic 68–92; BMI 30.3
[2024-02-14] MEDS: ROBITUSSIN DM 10 ML PO (00:02)
[2024-02-14] MEDS: CARDIZEM 125 IV ×3 (00:06→17:13)
--- NOTE | 2024-02-14 01:08 | PTCARENOTE ---
Remains in A-fib. Cardizem drip infusing at 15ml/hr. Continues with occasional dry cough, given robitussin po. No c/o of pain.
[2024-02-14 05:43] LABS: % Basophils 0.5 % (0-2); % Eosinophils 0.6 % (0-6); % Immature Granulocytes 0.4 % (0-0.5); % Lymphocytes 7.2 % (20.5-51.1); % Monocytes 14.3 % (1.7-9.3); Absolute Basophils 0.1 10^3/uL (0-0.2); Absolute Eosinophils 0.1 10^3/uL (0-0.7); Absolute Immature Granulocytes 0.1 10^3/uL (0-0.05); Absolute Monocytes 1.9 10^3/uL (0.1-0.6); Absolute Neutrophils 10.4 10^3/uL (1.4-6.5); Hematocrit 35.8 % (39.0-52.0); Hemoglobin 12.8 g/dL (13.0-18.0); Mean Corp Hgb Conc. 35.8 g/dL (33.0-37.0); Mean Corpuscular Hgb 32.7 pg (27.0-31.0); Mean Corpuscular Volume 91.6 fL (80.0-94.0); Mean Platelet Volume 10.3 fL (7.4-10.4); Nucleated Red Blood Cells % 0 % (-); Platelet Count 319 10^3/uL (130-400); Red Blood Cell Count 3.91 10^6/uL (4.70-6.10); Red Cell Dist. Width 13.8 % (11.5-14.5); White Blood Cell Count 13.5 10^3/uL (4.8-10.8)
[2024-02-14 06:20] LABS: Estimated Creatinine Clearance 61 ml/min; eGFR > 60.00
[2024-02-14 06:29] LABS: Blood Urea Nitrogen 25 mg/dl (9-20); Calcium 8.7 mg/dl (8.4-10.2); Carbon Dioxide 25 mmol/L (22-30); Chloride 100 mmol/L (98-107); Glucose 101 mg/dl (70-99); Potassium 3.7 mmol/L (3.5-5.1); Sodium 134 mmol/L (135-145)
[2024-02-14] MEDS: LASIX 40 MG IV (08:48)
[2024-02-14] MEDS: PACERONE 400 MG PO ×3 (08:48→22:14)
--- NOTE | 2024-02-14 09:11 | W.PN.HOSP.TC ---
Addendum entered and electronically signed by Saurabh Simmons MD, Resident 02/18/24 10:11:
Assessment Change.
Patient with
#Persistent Atrial Fibrillation.
Addendum entered and electronically signed by Shiva Marie MD 02/14/24 15:41:
Attending Addendum-
I saw and evaluated the patient. I reviewed the resident�s note and agree with findings and plan as documented in the resident�s note. Full 12 point ROS reviewed and negative except as documented- S: Patient feels less sob but 'had a rough night'
Feels fatigued and has palpitations. Full 12 point ROS reviewed and negative except as documented Exam- vitals reviewed in EMR GEN-nad heart irreg irreg and tachycardic, lungs crackles at bases abd soft LE no edema Plan:
# Acute Hypoxemic Respiratory Failure
- from CHF and rapid a fib
- wean o2 as tolerated, now on RA
# Rapid Atrial Fibrillation
- cont cardizem gtt for now
- DC nadolol
- cards input appreciated
- amiodarone load started
- metoprolol xl added
- echo 02/12-
LV ejection fraction is 45-50%.
Mild to moderate mitral regurgitation. Mild aortic regurgitation.Moderate tricuspid regurgitation.
Trivial pericardial effusion.
Dilated aortic root.
- cont xarelto
- if continues to be in a fib on Saturday- for [facility]ENN[facility] CV
# AE HFmrEF
- cont IV lasix
- daily weights fluid restrict
- down 3 kgs from admission
- check echo- reviewed
- cards input appreciated
- check BMP in am
# Leukocytosis
- resolving
- no signs of infection
- repeat CBC in am
# Hyponatremia-
- hypervolemic
- cont diuresis
- repeat BMP in am
# KEYUR
- resolving
- likely prerenal from CHF
- repeat BMP in am
- check fe urea if worsens
# HLD
- cont atorvastatin
# GERD
- cont famotidine
DVT-p- xarelto
Dispo eventual DC home with HC
Time spent coordinating care, review of plan of care with resident, personally reviewed previous records in EMR, med rec, labs, radiology, d/w nursing�and cards- 55 mins
Original Note:
Today's Communication/Plan
-
See plan :/
Assessment / Plan
Assessment / Plan
Impression:
Acute HFmrEF
Rapid atrial fibrillation
Acute hypoxic respiratory insufficiency secondary to above
Leukocytosis
Conditions prior to admission
Hypertension
GERD
Hyperlipidemia
Incidental iliac aneurysm findings
PVCs
History of stromal tumor s/p 2010
Plan
#Acute hypoxic respiratory insufficiency secondary to Acute HFmrEF and Rapid atrial fibrillation
-Wean O2 as tolerated
#Acute HFmrEF
-Continue IV Lasix 40 mg daily
-Fluid restrict
-Daily weights
-I's and O's
-Echo 02/14/2024 - LV ejection fraction is 45-50%.
-Monitor BMP
#Rapid atrial fibrillation
-Continue Cardizem gtt.
-Amiodarone load with 400 mg TID for rate/rhythm control
-Consideration for cardioversion prior to discharge if patient fails to convert during admission
-Continue anticoagulation with Xarelto
#Leukocytosis
Possibly stress-induced
WBC improving, continue to trend
#Hypertension
-Blood pressure stable during this admission
-d/c nadolol
-Continue IV Lasix
#GERD
-Continue famotidine
# Hyperlipidemia
-Continue atorvastatin
#hx of iliac artery aneurysm
-Continue to monitor as outpatient
DVT prophylaxis; Xarelto
CODE STATUS: Full code
Anticipated Discharge: 24 - 48 hours
Subjective/Interval History
-
Overnight events. Patient with complaints of nonproductive cough overnight. Reports improvement with Robitussin. Overall denies chest pain, shortness of breath, fever, chills. Not in any respiratory distress at this time
Objective Data
-
Labs:
Laboratory Results
02/14/24
05:17
WBC 13.5 H
Hgb 12.8 L
Hct 35.8 L
Plt Count 319
Sodium 134 L
Potassium 3.7
Chloride 100
Carbon Dioxide 25
BUN 25 H
Creatinine 1.2
Glucose 101 H
Calcium 8.7
Vital Signs:
Vital Signs
Temp Pulse Resp BP Pulse Ox
99.3 F 130 20 117/74 93
02/14/24 07:11 02/14/24 08:00 02/14/24 07:11 02/14/24 08:00 02/14/24 07:11
I&O
02/13/24 02/14/24 02/15/24
06:59 06:59 06:59
Output Total 2400 / 2400
Balance -2400 / -2400
Review of Systems
-
All other systems: Reviewed and negative (Except as documented)
Physical Exam
-
General: Well Nourished and No Apparent Distress
HEENT: Normocephalic
Respiratory: Crackles (Mild ); Negative Wheezes or Rhonchi
Cardiac: S1/S2 and Irregular Rhythm
GI: Soft, Nontender, Nondistended and Normal Bowel Sounds
Musculoskeletal: No Cyanosis and No Edema
Skin: Warm and Dry
Neuro: Awake, Alert, Oriented and AO x 3
Psych: Calm and Intact Judgement/Insight
Data Reviewed
-
CT Scan: Report Reviewed by me and Discussed with Physician
[2024-02-14 09:14] LABS: COVID-19 Antigen Negative (Negative)
--- NOTE | 2024-02-14 09:26 | W.PN.CARDCBS ---
Addendum entered and electronically signed by Vincent Allred MD 02/14/24 11:06:
I saw and examined the patient.
The Division Traffic Superintendent's note was reviewed and I agree with the note.
Comment: Briefly, 78-year-old male past medical history of paroxysmal atrial fibrillation presenting in A-fib with RVR decompensated heart failure
Currently on diltiazem drip however heart rates remain elevated
Add metoprolol for goal heart rate less than 110 bpm
If he remains in A-fib on Saturday we will tentatively plan for direct-current cardioversion
Continue Xarelto for cardioembolic prophylaxis
Cont IV Lasix
Wean oxygen as able
Follow daily weights and renal function
Original Note:
Today's Communication / Plan
-
Continue cardizem gtt for rate control
Amiodarone started at 400mg TID
Consider starting Toprol for EF 45% and rate control
Continue IV lasix
Impression / Plan
-
PCP: Dr. Antoine
Primary Drapery Hanger: Dr. Alcala
Impression:
Acute HFmrEF
Persistent Afib
Previously paroxysmal Afib with PVI 2012 and 2016
previous sotalol therapy, stopped due to ineffectiveness 04/2020
most recent CV in [facility] 01/10/24
Chronic Tikosyn therapy from 04/2020 to 01/2024
Chronic Xarelto OAC
HTN
1st degree av block
Hyperlipidemia
PVCs
h/o stromal tumor s/p resection 2010
JENNIFER 03/29/20: EF 60-65%, mod dilated LA, mildly dilated RA, no thrombus detected in KYLE, mild MR, mild AR
JENNIFER 09/22/20: EF 45%, mild global hypokinesis normal RV size and function, mild to moderate MR, mild central aortic regurgitation
Echo 02/13/2024: EF 45-50%, mild cLVH, mild to moderate MR, mild AR, moderate TR, estimated PAP 35-40mmHg, trivial pericardial effusion
Plan:
-Presented with orthopnea and found to be in acute heart failure and rapid atrial fibrillation.
-Diuresing with IV lasix 40mg daily. Weight down to 222lbs today. Weight in ER 230 lbs if accurate.
-Creat improved slightly to 1.2. Negative on I&Os. Continue to follow w/ diuresis
-Remains in rapid atrial fibrillation on review of telemetry.
-Previously was maintained on Tikosyn, however this was discontinued recently as OP. Starting amiodarone load this admission. Continue 400mg TID.
-Follow QTc on EKG. Stable at 441 ms 02/12. Will recheck in AM.
-Continues on Cardizem gtt for now as heart rates remain elevated. Wean as able.
-If patient remains in Afib through the weekend, would consider CV on Saturday, 02/16.
-Echo 02/12 noted mildly reduced EF at 45%, stable compared to prior echo in 2020.
-Given reduced EF with elevated heart rates, would consider starting Toprol XL 12.5mg daily. He reportedly felt poorly with nadolol 20mg BID due to fatigue.
-Suspect heart failure and cardiomyopathy may be related to rapid atrial fibrillation.
-Patient had PVIs 2012 and 2016. He cannot have Convergent MAZE due to previous stromal surgery. He would be interested in a 3rd PVI if he is a candidate.
-Continue Xarelto 20mg daily for anticoagulation.
HPI: Patient came to ER today with symptoms of orthopnea that started last night and is now being admitted with heart failure and cardiology has been consulted. As you recall the patient has a history of paroxysmal atrial fibrillation and had
previous PVI in 2012 and 2016. He recurred following his 2017 ablation and at that time was on sotalol which was discontinued in favor of Tikosyn. There was previous consideration for convergent maze, but previous stromal tumor incision made him
high risk and MAZE was not pursued. Patient was seen in ER on 01/02/2024 was found to be in rapid A-fib. Patient had CV in ER, but feels he recurred 01/15/24. Patient called the office to report recurrence of atrial fibrillation and he was
offered an office visit to discuss another ablation, but instead on the recommendation of physician friends decided to pursue a second opinion at [facility]. He saw the [facility] feeder worker power unit operator within the last 1 to 2 weeks and they had him stop Tikosyn and
Cardizem and instead put him on rate control therapy with nadolol 20 mg twice daily. He says he felt incredibly fatigued with twice daily dosing and that within the last week the dose was cut to nadolol 20 mg daily. He says that the [facility]
feeder worker power unit operator told him he was in A-fib in their office that day, but he did not feel that he was. Since the Tikosyn was stopped however he became increasingly symptomatic and felt that he was in A-fib. In the last 2 to 3 days he has started with
shortness of breath, bloating and orthopnea. He has not been sleeping due to orthopnea and nonproductive cough so he came to ER today and is being admitted with acute HF.
Progress Note - Drapery Hanger
Subjective
Date of Service: February 14, 2024
Feeling better, still in rapid afib. Still on supplemental O2
Objective
Labs:
02/14/24 05:17
02/14/24 05:17
Labs
Hgb 12.8 g/dL (13.0-18.0) L 02/14/24 05:17
Hct 35.8 % (39.0-52.0) L 02/14/24 05:17
Plt Count 319 10^3/uL (130-400) 02/14/24 05:17
Sodium 134 mmol/L (135-145) L 02/14/24 05:17
Potassium 3.7 mmol/L (3.5-5.1) 02/14/24 05:17
BUN 25 mg/dl (9-20) H 02/14/24 05:17
Creatinine 1.2 mg/dL (0.7-1.3) 02/14/24 05:17
Glucose 101 mg/dl (70-99) H 02/14/24 05:17
Troponins
02/13/24
07:48
Troponin I < 0.012
Vital Signs and I&O:
Vital Signs
Temp Pulse Resp BP Pulse Ox
99.3 F 130 20 117/74 93
02/14/24 07:11 02/14/24 08:00 02/14/24 07:11 02/14/24 08:00 02/14/24 07:11
Vital Signs
Temp Pulse Resp BP Pulse Ox
99.3 F 130 20 117/74 93
02/14/24 07:11 02/14/24 08:00 02/14/24 07:11 02/14/24 08:00 02/14/24 07:11
Intake & Output
02/12/24 02/13/24 02/14/24 02/15/24
06:59 06:59 06:59 06:59
Output Total 2400 / 2400
Balance -2400 / -2400
Physical Exam
Physical Exam
GEN: No distress, awake, alert, oriented x3
HEENT: supple, anicteric, mmm
LUNGS: crackles at b/l bases
CV: irregularly irregular, S1/S2, 1/6 syst murmur
EXT: No clubbing or cyanosis, trace edema b/l LE
NEURO: Gross non-focal
SKIN: Warm, dry, no rash
[2024-02-14] MEDS: TOPROL XL 25 MG PO ×2 (10:45→20:07)
--- NOTE | 2024-02-14 11:45 | CM ---
Chart reviewed. Patient is independent of ADLS, lives with his in a [address], [address], 0 [address]. Plan is for the patient to return home. CM to follow
--- NOTE | 2024-02-14 12:25 | PTCARENOTE ---
The patient's temperature was 100.5 earlier. Repeat temp 98.0. No medication was given.
--- NOTE | 2024-02-14 15:04 | PN.CDI ---
CDI
- -
CDI:
Physician Documentation Request
Admit Date: 02/13/24 10:22
Dear Doctor Troy,
Please review the following and provide your response in the progress notes.
Clinical Indicators:
PN, 02/13
#Rapid atrial fibrillation
Cardiology, PN, 02/13
#Persistent Afib
#Previously paroxysmal Afib with PVI 2012 and 2016
Please clarify specificity regarding atrial fibrillation, ...:
Persistent atrial fibrillation - episodes of continuous AF that last more than 7 days and do not self-terminate
Paroxysmal atrial fibrillation - terminates spontaneously or with intervention within 7 days of onset
Other - please specify
Use of terms such as suspected, likely, concern for, or probable (associated with a specific diagnosis that is being evaluated, monitored, or treated as if it exists) are acceptable and can be coded in the inpatient setting, when documented at the
time of discharge.
Thank you,
Kimberlee Lechuga RN BSN CCDS
CDI Specialist
please contact via tiger text
Please use your independent medical judgment in providing your response.
--- NOTE | 2024-02-14 15:12 | PN.CDI ---
CDI
- -
CDI:
Physician Documentation Request
Admit Date: 02/13/24 10:22
Dear Doctor Troy,
Please review the following and provide your response in the progress notes.
Clinical Indicators:
H+P, 02/12
# KEYUR
#- likely prerenal from CHF
Laboratory Tests
02/13/24 02/14/24
07:48 05:17
Creatinine 1.3 1.2
eGFR 55.53 > 60.00
Based on the above information and the clinical indicators in the record, please clarify in the Progress Notes which of the following most accurately represents the patient's renal status:
Acute kidney injury with no underlying CKD(please document support)
Chronic stable CKD, (specify stage)
Acute kidney injury on baseline CKD, (specify stage of CKD)
Other(please specify)
Criteria for KEYUR*
1 Increase in serum creatinine by > or = to 0.3 mg/dL (> or = to 26.5 micromol/L) within 48 hours, OR
2 Increase in serum creatinine to > or = to 1.5 times baseline, which is known or presumed to have occurred within 7 days, OR
3 Urine volume < 0.5 nL/kg/hour for six hours
Stages of Chronic Kidney Disease*
Level Description GFR
G1 Normal or High >90
G2 Mildly decreased 60-89
G3a Mildly to moderately decreased 45-59
G3b Moderately to severely decreased 30-44
G4 Severely decreased 15-29
G5 Kidney failure <15
Use of terms such as suspected, likely, concern for, or probable (associated with a specific diagnosis that is being evaluated, monitored, or treated as if it exists) are acceptable and can be coded in the inpatient setting, when documented at the
time of discharge.
Thank you,
Kimberlee Lechuga RN BSN CCDS
CDI Specialist
please contact via tiger text
Please use your independent medical judgment in providing your response.
*Source: Kidney Disease: Improving Global Outcomes (KDIGO) 2012
--- NOTE | 2024-02-14 15:18 | PTCARENOTE ---
Patient had a 2.34 second pause on the monitor. He was asymptomatic and remains in rapid afib with heart rates in the 120s. Marlin BAUTISTA notified.
--- NOTE | 2024-02-14 15:24 | PN.CDI ---
CDI
- -
CDI:
Physician Documentation Request
Admit Date: 02/13/24 10:22
Dear Doctor Troy,
Please review the following and provide your response in the progress notes.
Clinical Indicators:
ER, 02/12
#...rapid atrial fibrillation with signs of acute congestive heart failure
#...evidenced by hypoxia and elevated BNP as well as
#...pulmonary edema seen on chest x-ray.
H+P, 02/12
# Acute Hypoxemic Respiratory Failure
#...- from CHF and rapid a fib
#...- wean o2 as tolerated
#...shortness of breath has been ongoing for the past 3 days.
#Acute HF unknown EF
#Acute hypoxic respiratory insufficiency secondary to above
#-O2 sats 96% on 4L oxygen on presentation
PN, 02/13
#Acute hypoxic respiratory insufficiency
#...secondary to Acute HFmrEF and Rapid atrial fibrillation
#-Wean O2 as tolerated
O2 2-4 L
Please clarify which of the following accurately represents the patient's respiratory status:
Acute hypoxic respiratory insufficiency
Acute hypoxemic respiratory failure
Hypoxia
Other(please specify)
Additional information for Respiratory Failure:
Recognized criteria for Respiratory Failure (Source: [facility] May 2013)
Symptoms Please indicate type if known
1. Tachypnea, SOB, dyspnea Hypoxic
2. Use of accessory muscles Hypercapnic
3. Pallor or cyanosis Hypoxic and Hypercapnic
4. Anxiety or restlessness
5. Unable to speak in full sentences
Supplemental O2 of > 40% (5LPM) Intubation is not required
Use of terms such as suspected, likely, concern for, or probable (associated with a specific diagnosis that is being evaluated, monitored, or treated as if it exists) are acceptable and can be coded in the inpatient setting, when documented at the
time of discharge.
Thank you,
Kimberlee Lechuag RN BSN CCDS
CDI Specialist
please contact via tiger text
Please use your independent medical judgment in providing your response.
[2024-02-14] MEDS: TESSALON PERLES 200 MG PO ×2 (16:22→22:16)
[2024-02-14] MEDS: XARELTO 20 MG PO (17:13)
[2024-02-14 18:22] LABS: Urine Albumin Trace (Neg - Trace); Urine Bilirubin Negative (Negative); Urine Character Clear (Clear); Urine Color Yellow; Urine Glucose Negative (Negative); Urine Ketone Negative (Negative); Urine Leukocyte Negative (Negative); Urine Nitrite Negative (Negative); Urine Occult Blood Negative (Negative); Urine Urobilinogen Negative (Neg - 1+)
[2024-02-14] MEDS: LIPITOR 20 MG PO (22:14)
[2024-02-14] MEDS: THERAGRAN 1 TABLET PO (22:15)
[2024-02-14] MEDS: PEPCID 20 MG PO (22:15)
[2024-02-15] VITALS (7 sets, daily range): BP systolic 103–126; BP diastolic 68–94; BMI 30.1
--- NOTE | 2024-02-15 00:12 | PTCARENOTE ---
Pt. remains on Cardizem gtt at 15 mg/hr. A-fib on the monitor, 80's-120's, with some ~2 second pauses (rate immediately recovers in the 90's-100's), last BP 125/92. Tessalon Perles given for frequent dry harsh cough. Pt. states they are helpful.
Currently sleeping.
[2024-02-15] MEDS: CARDIZEM 125 IV ×3 (00:28→17:31)
[2024-02-15] MEDS: MELATONIN 5 MG PO ×2 (00:48→22:31)
--- NOTE | 2024-02-15 04:59 | PTCARENOTE ---
Pt. complaining of insomnia at 0030 and feeling SOB when laying down. Stated he hasn't slept since being admitted due to frequent coughing and SOB. Pulse ox 92% RA, crackles present in bilateral bases. 2L O2 placed with much improvement in
symptoms. Pulse ox increased to 95%, SOB improved. Order for melatonin obtained and administered with good results, pt. sleeping soundly when checked on.
[2024-02-15 05:11] LABS: % Basophils 0.5 % (0-2); % Eosinophils 2.4 % (0-6); % Immature Granulocytes 0.5 % (0-0.5); % Lymphocytes 9.1 % (20.5-51.1); % Monocytes 14.1 % (1.7-9.3); % Neutrophils 73.4 % (42.2-75.2); Absolute Basophils 0.1 10^3/uL (0-0.2); Absolute Eosinophils 0.3 10^3/uL (0-0.7); Absolute Immature Granulocytes 0.1 10^3/uL (0-0.05); Absolute Lymphocytes 1.2 10^3/uL (1.2-3.4); Absolute Monocytes 1.9 10^3/uL (0.1-0.6); Hematocrit 37.9 % (39.0-52.0); Hemoglobin 13.5 g/dL (13.0-18.0); Mean Corp Hgb Conc. 35.6 g/dL (33.0-37.0); Mean Corpuscular Hgb 32.9 pg (27.0-31.0); Mean Corpuscular Volume 92.4 fL (80.0-94.0); Mean Platelet Volume 10.5 fL (7.4-10.4); Nucleated Red Blood Cells % 0 % (-); Platelet Count 317 10^3/uL (130-400); Red Cell Dist. Width 13.5 % (11.5-14.5); White Blood Cell Count 13.6 10^3/uL (4.8-10.8)
[2024-02-15 05:33] LABS: Blood Urea Nitrogen 27 mg/dl (9-20); Calcium 8.8 mg/dl (8.4-10.2); Carbon Dioxide 26 mmol/L (22-30); Chloride 100 mmol/L (98-107); Estimated Creatinine Clearance 66 ml/min; Glucose 111 mg/dl (70-99); Potassium 3.4 mmol/L (3.5-5.1); Sodium 133 mmol/L (135-145); eGFR > 60.00
--- NOTE | 2024-02-15 07:41 | W.PN.CARDCBS ---
Today's Communication / Plan
-
Cont IV lasix diuresis. Wt continues to come down. Cr stable. Monitor Is and Os and daily wts. Is and Os negativer over 1700cc.
Replete potassium
Echo reviewed and EF 45-50% overall similar to prior JENNIFER 2020.
Check echo to evaluate left ventricular systolic function. Last TTE had EF 45%.
Cont Amiodarone load with 400 mg TID while we continue to diurese and if he fails to covert over the admission and pending his rate control will consider cardioversion Saturday. He will then follow up with Dr Valentin to discuss further
rhythm control and possible repeat PVI.
Patient was previously on sotalol and Tikosyn, but both were stopped due to ineffectiveness.
Patient had PVIs 2012 and 2016.
Apparently cannot have Convergent MAZE due to previous stromal surgery.
Cont Xarelto. He says he has not missed any doses of Xarelto
Metoprolol 25 mg BID was added for rate control Feb 13
Cont IV Cardizem for now. Titrate down once improved rate control.
Impression / Plan
-
.
PCP: Dr. Antoine
Primary As400 Consultant: Dr. Valentin
Impression:
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
Recurrent Afib
Previously paroxysmal Afib with PVI 2012 and 2016
previous sotalol therapy, stopped due to ineffectiveness 04/2020
most recent CV in [facility] 01/10/24
Chronic Tikosyn therapy from 04/2020 to 01/2024
Chronic Xarelto OAC
HTN
1st degree av block
Hyperlipidemia
PVCs
h/o stromal tumor s/p resection 2010
JENNIFER 03/29/20: EF 60-65%, mod dilated LA, mildly dilated RA, no thrombus detected in KYLE, mild MR, mild AR
JENNIFER 09/22/20: EF 45%, mild global hypokinesis normal RV size and function, mild to moderate MR, mild central aortic regurgitation
Echo 02/13/2024: EF 45-50%, mild cLVH, mild to moderate MR, mild AR, moderate TR, estimated PAP 35-40mmHg, trivial pericardial effusion
Plan:
Presented with orthopnea and found to be in acute heart failure and rapid atrial fibrillation. He recently saw Dr. Bueno at [facility] for a second opinion and was taken off his Tikosyn and started on nadolol which he did not tolerate.
HF likely related to rapid AFib
Cont IV lasix diuresis. Wt continues to come down. Cr stable. Monitor Is and Os and daily wts. Is and Os negativer over 1700cc.
Replete potassium
Echo reviewed and EF 45-50% overall similar to prior JENNIFER 2020.
Check echo to evaluate left ventricular systolic function. Last TTE had EF 45%.
Cont Amiodarone load with 400 mg TID while we continue to diurese and if he fails to covert over the admission and pending his rate control will consider cardioversion Saturday. He will then follow up with Dr Valentin to discuss further
rhythm control and possible repeat PVI.
Patient was previously on sotalol and Tikosyn, but both were stopped due to ineffectiveness.
Patient had PVIs 2012 and 2016.
Apparently cannot have Convergent MAZE due to previous stromal surgery.
Cont Xarelto. He says he has not missed any doses of Xarelto
Metoprolol 25 mg BID was added for rate control Feb 13
Cont IV Cardizem for now. Titrate down once improved rate control.
Trop negative.
Will arrange outpt follow up with Dr Valentin at time of d/c.
HPI: Patient came to ER today with symptoms of orthopnea that started last night and is now being admitted with heart failure and cardiology has been consulted. As you recall the patient has a history of paroxysmal atrial fibrillation and had
previous PVI in 2012 and 2016. He recurred following his 2017 ablation and at that time was on sotalol which was discontinued in favor of Tikosyn. There was previous consideration for convergent maze, but previous stromal tumor incision made him
high risk and MAZE was not pursued. Patient was seen in ER on 01/02/2024 was found to be in rapid A-fib. Patient had CV in ER, but feels he recurred 01/15/24. Patient called the office to report recurrence of atrial fibrillation and he was
offered an office visit to discuss another ablation, but instead on the recommendation of physician friends decided to pursue a second opinion at [facility] with Dr Bueno. He saw the [facility] industrial relations director within the last 1 to 2 weeks and they had him stop
Tikosyn and Cardizem and instead put him on rate control therapy with nadolol 20 mg twice daily. He says he felt incredibly fatigued with twice daily dosing and that within the last week the dose was cut to nadolol 20 mg daily. He says that the
[facility] industrial relations director told him he was in A-fib in their office that day, but he did not feel that he was. Since the Tikosyn was stopped however he became increasingly symptomatic and felt that he was in A-fib. In the last 2 to 3 days he has started
with shortness of breath, bloating and orthopnea. He has not been sleeping due to orthopnea and nonproductive cough so he came to ER today and is being admitted with acute HF.
Progress Note - As400 Consultant
Subjective
Date of Service: February 15, 2024
Pt seen and examined. No cp. Breathing improving.
Objective
Labs:
02/15/24 04:32
02/15/24 04:32
Labs
Hgb 13.5 g/dL (13.0-18.0) 02/15/24 04:32
Hct 37.9 % (39.0-52.0) L 02/15/24 04:32
Plt Count 317 10^3/uL (130-400) 02/15/24 04:32
Sodium 133 mmol/L (135-145) L 02/15/24 04:32
Potassium 3.4 mmol/L (3.5-5.1) L 02/15/24 04:32
BUN 27 mg/dl (9-20) H 02/15/24 04:32
Creatinine 1.1 mg/dL (0.7-1.3) 02/15/24 04:32
Glucose 111 mg/dl (70-99) H 02/15/24 04:32
Troponins
02/13/24
07:48
Troponin I < 0.012
Vital Signs and I&O:
Vital Signs
Temp Pulse Resp BP Pulse Ox
98.8 F 121 18 107/68 94
02/15/24 04:24 02/15/24 07:22 02/15/24 04:24 02/15/24 07:22 02/15/24 04:24
Vital Signs
Temp Pulse Resp BP Pulse Ox
98.8 F 121 18 107/68 94
02/15/24 04:24 02/15/24 07:22 02/15/24 04:24 02/15/24 07:22 02/15/24 04:24
Intake & Output
02/13/24 02/14/24 02/15/24 02/16/24
06:59 06:59 06:59 06:59
Intake Total 480 / 480
Output Total 2400 / 2400 2200 / 2200
Balance -2400 / -2400 -1720 / -1720
Physical Exam
Physical Exam
General: No acute distress, AAOX3
Neck: Negative JVD
Heart: Irregularly irregular, Negative S3 positive S1/S2, Negative S4, No murmur
Lungs: CTA b/l, negative wheezes/rales/rhonchi
Abd: Positive BS, NT/ND, neg rebound/rigidity/guarding
Ext: Negative cyanosis/clubbing/edema
Neuro: nonfocal
[2024-02-15] MEDS: PACERONE 400 MG PO ×3 (07:43→22:31)
[2024-02-15] MEDS: TOPROL XL 25 MG PO ×2 (07:43→19:29)
[2024-02-15] MEDS: TESSALON PERLES 200 MG PO ×2 (07:43→22:32)
[2024-02-15] MEDS: FLUSH (NSS) 1 FLUSH IV (07:44)
--- NOTE | 2024-02-15 07:55 | W.PN.HOSP.TC ---
Addendum entered and electronically signed by Shiva Marie MD 02/15/24 19:20:
Attending Addendum-
I saw and evaluated the patient. I reviewed the resident�s note and agree with findings and plan as documented in the resident�s note. Full 12 point ROS reviewed and negative except as documented- S: overall feels improved but now has a mild
productive cough. Full 12 point ROS reviewed and negative except as documented Exam- vitals reviewed in EMR GEN-nad heart irreg irreg and tachycardic, lungs crackles at bases abd soft LE no edema Plan:
# Acute Hypoxemic Respiratory Failure
- from CHF and rapid a fib doubt primary pulmonary issue
- wean o2 as tolerated, now on RA
# Rapid Atrial Fibrillation
- cont cardizem gtt for now
- home nadolol DC'd
- cards input appreciated
- amiodarone load started
- metoprolol xl BID added
- echo 02/12-
LV ejection fraction is 45-50%.
Mild to moderate mitral regurgitation. Mild aortic regurgitation.Moderate tricuspid regurgitation.
Trivial pericardial effusion.
Dilated aortic root.
- cont xarelto
- if continues to be in a fib- for JENNIFER CV 02/16
# AE HFmrEF
- cont IV lasix- transition to PO soon as becoming euvolemic
- daily weights fluid restrict
- down 4 kgs from admission
- echo- reviewed
- cards input appreciated
- check BMP in am
# Leukocytosis
- stable and trend
- no signs of infection
- repeat CBC in am
# Hyponatremia-
- hypervolemic status- improving
- cont diuresis
- repeat BMP in am
# KEYUR
- resolved
- repeat BMP in am
# HLD
- cont atorvastatin
# GERD
- cont famotidine
DVT-p- xarelto
Dispo eventual DC home with HC
Time spent coordinating care, review of plan of care with resident, personally reviewed previous records in EMR, med rec, labs, radiology, d/w nursing- 52 mins
Original Note:
Today's Communication/Plan
-
Continue current medications and keep monitoring heart rate and rhythm
Assessment / Plan
Assessment / Plan
Impression:
Acute HFmrEF
Rapid atrial fibrillation
Acute hypoxic respiratory insufficiency secondary to above
Leukocytosis
Conditions prior to admission
Hypertension
GERD
Hyperlipidemia
Incidental iliac aneurysm findings
PVCs
History of stromal tumor s/p 2010
Plan
#Acute hypoxic respiratory insufficiency secondary to Acute HFmrEF and Rapid atrial fibrillation
-from CHF and rapid a-fib
-Wean O2 as tolerated
-Chest X-Ray- There is improved aeration of the lungs with residual hazy opacities in the lung bases, more pronounced on the right with a small right-sided pleural effusion. Findings may represent edema/atelectasis however infectious process can
appear similar.
-Checking Sputum cultures
-Check UA- negative (02/13)
-Check COVID test- Neg
-Flu (Negative)
-Procalcitonin (Negative)
-Lactic Acid 2.0
#Acute HFmrEF
-Continue IV Lasix 40 mg daily
-Fluid restrict
-Daily weights
-I's and O's
-Echo 02/14/2024 - LV ejection fraction is 45-50%.
-Monitor BMP
#Rapid atrial fibrillation
-Continue Cardizem 125mg gtt.
-Amiodarone load with 400 mg TID for rate/rhythm control
-JENNIFER CV on Saturday if continues to be in A-Fib
-Continue anticoagulation with Xarelto
-Echo on 02/12 showed LV ejection fraction is 45-50%. Mild to moderate mitral regurgitation. Mild aortic regurgitation.Moderate tricuspid regurgitation. Trivial pericardial effusion. Dilated aortic root.
-Metoprolol XL 25mg BID added
-Nadolol DCd
#Leukocytosis
Possibly stress-induced
WBC improving, continue to trend
-no signs of infection
#Hypertension
-Blood pressure stable during this admission
-d/c nadolol
-Continue IV Lasix
#Hypokalemia-
-Start Potassium Repletion 20meq PO daily
#GERD
-Continue famotidine
# Hyperlipidemia
-Continue atorvastatin
#hx of iliac artery aneurysm
-Continue to monitor as outpatient
DVT prophylaxis; Xarelto
CODE STATUS: Full code
Anticipated Discharge: 24 - 48 hours
Subjective/Interval History
-
Date of Service: February 15, 2024
Patient has been feeling better overnight but has had some productive cough. Says melatonin helped him fall asleep.
Objective Data
-
Labs:
Laboratory Results
02/15/24
04:32
WBC 13.6 H
Hgb 13.5
Hct 37.9 L
Plt Count 317
Sodium 133 L
Potassium 3.4 L
Chloride 100
Carbon Dioxide 26
BUN 27 H
Creatinine 1.1
Glucose 111 H
Calcium 8.8
Vital Signs:
Vital Signs
Temp Pulse Resp BP Pulse Ox
98.3 F 121 14 107/68 94
02/15/24 07:00 02/15/24 07:22 02/15/24 07:00 02/15/24 07:22 02/15/24 07:00
I&O
02/14/24 02/15/24 02/16/24
06:59 06:59 06:59
Intake Total 480 / 480
Output Total 2400 / 2400 2200 / 2200
Balance -2400 / -2400 -1720 / -1720
Review of Systems
-
History Source: Patient
Constitutional: Denies Fever, No Appetite, Fatigue or Sleep Disturbance
Respiratory: Reports Cough; Denies Trouble Breathing or Wheezing
Cardiac: Denies Chest Pain, Diaphoresis, Palpitations or Syncope
Physical Exam
-
General: Well Developed, Well Nourished and No Apparent Distress
Respiratory: Crackles
Cardiac: S1/S2 and Irregular Rhythm
Musculoskeletal: No Clubbing, No Cyanosis and No Edema
Skin: Warm and Dry
Neuro: Awake, Alert, Oriented, AO x 3 and No Motor Deficits
Data Reviewed
-
Diagnostic Radiology: Report Reviewed by me, Discussed with Physician and Discussed with Patient
CT Scan: Report Reviewed by me, Discussed with Physician and Discussed with Patient
Medical Tests (Nuc Med, Echo etc): Report Reviewed by me, Discussed with Physician and Discussed with Patient
Labs: Labs Reviewed by me, Discussed with Physician and Discussed with Patient
[2024-02-15] MEDS: FLUSH (NSS) 2 FLUSH IV (08:18)
[2024-02-15] MEDS: LASIX 40 MG IV (08:18)
[2024-02-15] MEDS: KCL 40 MEQ PO (08:18)
--- NOTE | 2024-02-15 11:45 | PTCARENOTE ---
Addendum entered by Isela Torres RN 02/15/24 11:49:
Dr. Love aware.
Original Note:
Cardizem gtt running at 15mg/hr. Heart rate fluctuates in the high 90s to 120's. Afib noted on the monitor with 2 second pauses noted at times. Pulse ox on RA is 94%. His cough produces yellow phlegm at times, other times his cough is harsh and dry.
Tessalon Perles given for comfort this am.
[2024-02-15] MEDS: KCL 20 MEQ PO (13:57)
[2024-02-15 14:27] LABS: Procalcitonin < 0.05 ng/ml (0.0-0.25)
[2024-02-15] MEDS: XARELTO 20 MG PO (17:31)
[2024-02-15] MEDS: LIPITOR 20 MG PO (22:31)
[2024-02-15] MEDS: PEPCID 20 MG PO (22:32)
[2024-02-15] MEDS: THERAGRAN 1 TABLET PO (22:32)
[2024-02-16] VITALS (7 sets, daily range): BP systolic 114–132; BP diastolic 72–99
[2024-02-16] MEDS: CARDIZEM 125 IV ×3 (02:31→19:09)
--- NOTE | 2024-02-16 02:41 | PTCARENOTE ---
Pt. remains in A-fib this shift, HR 80's-120's; still having occasional ~2 second pauses. Cardizem infusing at 15 mg/hr. Pt. states his breathing feels better, RA pulse ox 93-94%. Cough still present but less often. Pt. sleeping.
[2024-02-16 05:59] LABS: % Basophils 0.6 % (0-2); % Eosinophils 3.1 % (0-6); % Immature Granulocytes 0.8 % (0-0.5); % Lymphocytes 10.2 % (20.5-51.1); % Monocytes 14.6 % (1.7-9.3); % Neutrophils 70.7 % (42.2-75.2); Absolute Basophils 0.1 10^3/uL (0-0.2); Absolute Eosinophils 0.3 10^3/uL (0-0.7); Absolute Immature Granulocytes 0.1 10^3/uL (0-0.05); Absolute Lymphocytes 0.9 10^3/uL (1.2-3.4); Absolute Monocytes 1.4 10^3/uL (0.1-0.6); Absolute Neutrophils 6.6 10^3/uL (1.4-6.5); Hematocrit 36.8 % (39.0-52.0); Hemoglobin 13.3 g/dL (13.0-18.0); Mean Corp Hgb Conc. 36.1 g/dL (33.0-37.0); Mean Corpuscular Hgb 33.5 pg (27.0-31.0); Mean Corpuscular Volume 92.7 fL (80.0-94.0); Mean Platelet Volume 10.6 fL (7.4-10.4); Nucleated Red Blood Cells % 0 % (-); Platelet Count 347 10^3/uL (130-400); Red Blood Cell Count 3.97 10^6/uL (4.70-6.10); Red Cell Dist. Width 13.6 % (11.5-14.5); White Blood Cell Count 9.3 10^3/uL (4.8-10.8)
[2024-02-16 06:22] LABS: Blood Urea Nitrogen 21 mg/dl (9-20); Calcium 8.8 mg/dl (8.4-10.2); Carbon Dioxide 25 mmol/L (22-30); Chloride 104 mmol/L (98-107); Estimated Creatinine Clearance 64 ml/min; Glucose 104 mg/dl (70-99); Potassium 3.6 mmol/L (3.5-5.1); Sodium 135 mmol/L (135-145); eGFR > 60.00
--- NOTE | 2024-02-16 07:30 | W.PN.HOSP.TC ---
Addendum entered and electronically signed by Shiva Marie MD 02/16/24 19:52:
Attending Addendum-
I saw and evaluated the patient. I reviewed the resident�s note and agree with findings and plan as documented in the resident�s note. Full 12 point ROS reviewed and negative except as documented- S: Feels greatly improved, Cough almost resolved.
Patient is having asymptomatic pauses on tele. Denies CP palps. Full 12 point ROS reviewed and negative except as documented Exam- vitals reviewed in EMR GEN-nad heart irreg irreg, lungs CTA B/L abd soft LE no edema Plan:
# Acute Hypoxemic Respiratory Failure
- resolved
- from CHF and rapid a fib doubt primary pulmonary issue
- wean o2 as tolerated, now on RA
# Rapid Atrial Fibrillation
- cont cardizem gtt for now
- home nadolol DC'd
- cards input appreciated
- cont amiodarone load
- cont metoprolol XL BID
- echo 02/12-
LV ejection fraction is 45-50%.
Mild to moderate mitral regurgitation. Mild aortic regurgitation.Moderate tricuspid regurgitation.
Trivial pericardial effusion.
Dilated aortic root.
-cont xarelto
-for JENNIFER CV 02/16
-NPO @ 6AM - order written
# Asymptomatic Cardiac Pause, first degree AV block
- pauses up to 4 seconds acceptable
- EKG personally reviewed
- cards aware and appreciate input
# Prolonged QT
- from amiodarone
- EKG @ 500ms
- avoid QT prolonging meds
- monitor closely in tele
- replete electrolytes
- repeat EKG in am
- BMP plus mag in am
# AE HFmrEF
- cont IV lasix- transition to PO soon as becoming euvolemic
- daily weights fluid restrict
- down 4 kgs from admission
- echo- reviewed
- cards input appreciated
- check BMP in am
# Leukocytosis
- resolved
- repeat CBC in am
# Hyponatremia-
- resolved
- cont diuresis
- repeat BMP in am
# KEYUR
- resolved
- repeat BMP in am
# HLD
- cont atorvastatin
# GERD
- cont famotidine
DVT-p- Xarelto
Dispo eventual DC home with HC likely in 48-72 hours
Time spent coordinating care, review of plan of care with resident, personally reviewed previous records in EMR, med rec, labs, radiology, d/w nursing and cards- 57 mins
Original Note:
Today's Communication/Plan
-
Continue current medications and monitoring patient's heart rhythm.
Assessment / Plan
Assessment / Plan
Impression:
Acute HFmrEF
Rapid atrial fibrillation
Acute hypoxic respiratory insufficiency secondary to above
Leukocytosis
Conditions prior to admission
Hypertension
GERD
Hyperlipidemia
Incidental iliac aneurysm findings
PVCs
History of stromal tumor s/p 2010
Plan
#Acute hypoxic respiratory failure
-from CHF and rapid a-fib
-Wean O2 as tolerated
-Chest X-Ray- There is improved aeration of the lungs with residual hazy opacities in the lung bases, more pronounced on the right with a small right-sided pleural effusion. Findings may represent edema/atelectasis however infectious process can
appear similar.
-Checking Sputum cultures
-Check UA- negative (02/13)
-Check COVID test- Neg
-Flu (Negative)
-Procalcitonin (Negative)
-Lactic Acid 2.0
#Acute HFmrEF
-Continue IV Lasix 40 mg daily- switch to PO
-Fluid restrict
-Daily weights
-I's and O's
-Echo 02/14/2024 - LV ejection fraction is 45-50%.
-Monitor BMP
#Rapid atrial fibrillation
-Continue Cardizem 125mg gtt.
-Amiodarone load with 400 mg TID for rate/rhythm control
-JENNIFER CV on Saturday if continues to be in A-Fib
-Continue anticoagulation with Xarelto
-Echo on 02/12 showed LV ejection fraction is 45-50%. Mild to moderate mitral regurgitation. Mild aortic regurgitation.Moderate tricuspid regurgitation. Trivial pericardial effusion. Dilated aortic root.
-Metoprolol XL 25mg BID added
-Nadolol DCd
-Cardioversion in the morning
#Leukocytosis
Possibly stress-induced
-Resolved continue to trend CBC
-no signs of infection
#Hypertension
-Blood pressure stable during this admission
-d/c nadolol
-Continue IV Lasix
#Hypokalemia-
-resolving, monitor BMP and continue repletion
# Hyponatremia-
- hypervolemic status- improving
- cont diuresis, switch to PO soon
- repeat BMP in am
#GERD
-Continue famotidine
# Hyperlipidemia
-Continue atorvastatin
#hx of iliac artery aneurysm
-Continue to monitor as outpatient
DVT prophylaxis; Xarelto
CODE STATUS: Full code
Anticipated Discharge: 24 - 48 hours
Subjective/Interval History
-
Date of Service: February 16, 2024
Patient seems to be feeling better but the cough is still present.
Objective Data
-
Labs:
Laboratory Results
02/16/24
04:59
WBC 9.3
Hgb 13.3
Hct 36.8 L
Plt Count 347
Sodium 135
Potassium 3.6
Chloride 104
Carbon Dioxide 25
BUN 21 H
Creatinine 1.0
Glucose 104 H
Calcium 8.8
Vital Signs:
Vital Signs
Temp Pulse Resp BP Pulse Ox
97.6 F 115 20 114/72 93
02/16/24 07:03 02/16/24 05:00 02/16/24 07:03 02/16/24 03:14 02/16/24 07:03
I&O
02/15/24 02/16/24 02/17/24
06:59 06:59 06:59
Intake Total 480 / 480 1140 / 1140
Output Total 2200 / 2200 2800 / 2800
Balance -1720 / -1720 -1660 / -1660
Review of Systems
-
History Source: Patient
Constitutional: Denies Fatigue, Night Sweats or Chills
Respiratory: Reports Cough; Denies Trouble Breathing or Wheezing
Cardiac: Denies Chest Pain or Palpitations
Physical Exam
-
General: Well Developed, Well Nourished and No Apparent Distress
Respiratory: Clear to Auscultation and Non Labored Respirations
Cardiac: S1/S2 and Irregular Rhythm
Musculoskeletal: No Clubbing, No Cyanosis and No Edema
Skin: Warm and Dry
Neuro: Awake, Alert, Oriented, AO x 3 and No Motor Deficits
Data Reviewed
-
Diagnostic Radiology: Report Reviewed by me, Discussed with Physician and Discussed with Patient
Medical Tests (Nuc Med, Echo etc): Report Reviewed by me, Discussed with Physician and Discussed with Patient
Labs: Labs Reviewed by me, Discussed with Physician and Discussed with Patient
--- NOTE | 2024-02-16 07:49 | W.PN.CARDCBS ---
Today's Communication / Plan
-
Cont amiodarone load
Cont IV diuresis
Cardioversion tomorrow
Impression / Plan
-
.
PCP: Dr. Antoine
Primary Front Counter Attendant: Dr. Valentin
Impression:
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
Recurrent Afib
Previously paroxysmal Afib with PVI 2012 and 2016
previous sotalol therapy, stopped due to ineffectiveness 04/2020
most recent CV in [facility] 01/10/24
Chronic Tikosyn therapy from 04/2020 to 01/2024
Chronic Xarelto OAC
HTN
1st degree av block
Hyperlipidemia
PVCs
h/o stromal tumor s/p resection 2010
JENNIFER 03/29/20: EF 60-65%, mod dilated LA, mildly dilated RA, no thrombus detected in KYLE, mild MR, mild AR
JENNIFER 09/22/20: EF 45%, mild global hypokinesis normal RV size and function, mild to moderate MR, mild central aortic regurgitation
Echo 02/13/2024: EF 45-50%, mild cLVH, mild to moderate MR, mild AR, moderate TR, estimated PAP 35-40mmHg, trivial pericardial effusion
Plan:
Presented with orthopnea and found to be in acute heart failure and rapid atrial fibrillation. He recently saw Dr. Bueno at [facility] for a second opinion and was taken off his Tikosyn and started on nadolol which he did not tolerate.
HF likely related to rapid AFib
Cont IV lasix diuresis. Wt flat. Cr and BUN stable. Monitor Is and Os and daily wts. Is and Os negative over 3L last 48 hrs.
Continue to replete potassium
Echo reviewed and EF 45-50% overall similar to prior JENNIFER 2020.
Cont Amiodarone load with 400 mg TID. At d/c, transition to 200 mg BID for 2 weeks and then 200 mg daily
NPO after midnight for cardioversion Saturday. He will then follow up with Dr Valentin to discuss further rhythm control and possible repeat PVI.
Patient was previously on sotalol and Tikosyn, but both were stopped due to ineffectiveness.
Patient had PVIs 2012 and 2016.
Apparently cannot have Convergent MAZE due to previous stromal surgery.
Cont Xarelto. He has not missed any doses of Xarelto
Continue Metoprolol 25 mg BID was added for rate control Feb 13
Cont IV Cardizem for now, will d/c after cardioversion.
Trop negative.
Will arrange outpt follow up with Dr Valentin at time of d/c.
HPI: Patient came to ER today with symptoms of orthopnea that started last night and is now being admitted with heart failure and cardiology has been consulted. As you recall the patient has a history of paroxysmal atrial fibrillation and had
previous PVI in 2012 and 2016. He recurred following his 2017 ablation and at that time was on sotalol which was discontinued in favor of Tikosyn. There was previous consideration for convergent maze, but previous stromal tumor incision made him
high risk and MAZE was not pursued. Patient was seen in ER on 01/02/2024 was found to be in rapid A-fib. Patient had CV in ER, but feels he recurred 01/15/24. Patient called the office to report recurrence of atrial fibrillation and he was
offered an office visit to discuss another ablation, but instead on the recommendation of physician friends decided to pursue a second opinion at [facility]eno. He saw the [facility] hospitality house supervisor within the last 1 to 2 weeks and they had him stop
Tikosyn and Cardizem and instead put him on rate control therapy with nadolol 20 mg twice daily. He says he felt incredibly fatigued with twice daily dosing and that within the last week the dose was cut to nadolol 20 mg daily. He says that the
[facility] hospitality house supervisor told him he was in A-fib in their office that day, but he did not feel that he was. Since the Tikosyn was stopped however he became increasingly symptomatic and felt that he was in A-fib. In the last 2 to 3 days he has started
with shortness of breath, bloating and orthopnea. He has not been sleeping due to orthopnea and nonproductive cough so he came to ER today and is being admitted with acute HF.
Progress Note - Front Counter Attendant
Subjective
Date of Service: February 16, 2024
Pt seen and examined. No complaints. No chest pain or shortness of breath.
Objective
Labs:
02/16/24 04:59
02/16/24 04:59
Labs
Hgb 13.3 g/dL (13.0-18.0) 02/16/24 04:59
Hct 36.8 % (39.0-52.0) L 02/16/24 04:59
Plt Count 347 10^3/uL (130-400) 02/16/24 04:59
Sodium 135 mmol/L (135-145) 02/16/24 04:59
Potassium 3.6 mmol/L (3.5-5.1) 02/16/24 04:59
BUN 21 mg/dl (9-20) H 02/16/24 04:59
Creatinine 1.0 mg/dL (0.7-1.3) 02/16/24 04:59
Glucose 104 mg/dl (70-99) H 02/16/24 04:59
Troponins
02/13/24
07:48
Troponin I < 0.012
Vital Signs and I&O:
Vital Signs
Temp Pulse Resp BP Pulse Ox
97.6 F 115 20 114/72 93
02/16/24 07:03 02/16/24 05:00 02/16/24 07:03 02/16/24 03:14 02/16/24 07:03
Vital Signs
Temp Pulse Resp BP Pulse Ox
97.6 F 115 20 114/72 93
02/16/24 07:03 02/16/24 05:00 02/16/24 07:03 02/16/24 03:14 02/16/24 07:03
Intake & Output
02/14/24 02/15/24 02/16/24 02/17/24
06:59 06:59 06:59 06:59
Intake Total 480 / 480 1140 / 1140
Output Total 2400 / 2400 2200 / 2200 2800 / 2800
Balance -2400 / -2400 -1720 / -1720 -1660 / -1660
Physical Exam
Physical Exam
General: No acute distress, AAOX3
Neck: Negative JVD
Heart: Irregularly irregular, Negative S3 positive S1/S2, Negative S4, No murmur
Lungs: CTA b/l, negative wheezes/rales/rhonchi
Abd: Positive BS, NT/ND, neg rebound/rigidity/guarding
Ext: Negative cyanosis/clubbing/edema
Neuro: nonfocal
[2024-02-16] MEDS: PACERONE 400 MG PO ×3 (09:01→21:43)
[2024-02-16] MEDS: KCL 20 MEQ PO ×2 (09:01)
[2024-02-16] MEDS: TOPROL XL 25 MG PO ×2 (09:01→20:13)
[2024-02-16] MEDS: LASIX 40 MG IV (09:02)
[2024-02-16] MEDS: XARELTO 20 MG PO (17:20)
--- NOTE | 2024-02-16 17:34 | PTCARENOTE ---
pt continues to be afib on the monitor, hr in the 90s-100, vss. pt offers no complaints at this time. pt educated on plan of care for the evening and pt verbalized understanding. jeffrey lujan running per protocol, see documentation. pt ambulating in
room and tolerating well. call wagner within reach.
[2024-02-16] MEDS: THERAGRAN 1 TABLET PO (21:43)
[2024-02-16] MEDS: PEPCID 20 MG PO (21:43)
[2024-02-16] MEDS: LIPITOR 20 MG PO (21:45)
[2024-02-16] MEDS: TESSALON PERLES 200 MG PO (21:45)
[2024-02-16] MEDS: MELATONIN 5 MG PO (21:46)
[2024-02-17] MEDS: CARDIZEM 125 IV (03:35)
[2024-02-17 04:00] VITALS: BP 113/72
[2024-02-17 04:06] VITALS: BMI 29.7
[2024-02-17 04:44] LABS: Hematocrit 37.4 % (39.0-52.0); Hemoglobin 13.8 g/dL (13.0-18.0); Mean Corp Hgb Conc. 36.9 g/dL (33.0-37.0); Mean Corpuscular Hgb 32.9 pg (27.0-31.0); Mean Platelet Volume 9.8 fL (7.4-10.4); Platelet Count 394 10^3/uL (130-400); Red Cell Dist. Width 13.7 % (11.5-14.5); White Blood Cell Count 9.9 10^3/uL (4.8-10.8)
[2024-02-17 05:06] LABS: Blood Urea Nitrogen 17 mg/dl (9-20); Calcium 8.9 mg/dl (8.4-10.2); Carbon Dioxide 25 mmol/L (22-30); Chloride 105 mmol/L (98-107); Estimated Creatinine Clearance 71 ml/min; Glucose 116 mg/dl (70-99); Magnesium 1.8 mg/dl (1.6-2.3); Potassium 3.6 mmol/L (3.5-5.1); Sodium 136 mmol/L (135-145); eGFR > 60.00
--- NOTE | 2024-02-17 05:53 | PTCARENOTE ---
Pt AFib on monitor with HR 80-115. Pt denies any pain or discomfort. NPO at midnight for cardioversion.
[2024-02-17 06:11] VITALS: BMI 29.7
[2024-02-17 07:20] VITALS: BP 119/88
[2024-02-17 07:31] VITALS: BP 124/91
[2024-02-17] MEDS: PACERONE 400 MG PO (07:33)
[2024-02-17] MEDS: TOPROL XL 25 MG PO (07:33)
--- NOTE | 2024-02-17 07:51 | PTCARENOTE ---
Received patient this morning resting in bed, remains in AF, cardizem infusing at 15mg/hr. Report given to the pathology laboratory director, patient NPO x med, taken for his CV.
--- NOTE | 2024-02-17 08:40 | W.PN.CARDCBS ---
Today's Communication / Plan
-
sinus s/p cardioversion
Outpt follow up.
Impression / Plan
-
.
PCP: Dr. Antoine
Primary Environmental Services Tech: Dr. Valentin
Impression:
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
Recurrent Afib, s/p cardioversion Feb 17 2024
Previously paroxysmal Afib with PVI 2012 and 2016
previous sotalol therapy, stopped due to ineffectiveness 04/2020
most recent CV in [facility] 01/10/24
Chronic Tikosyn therapy from 04/2020 to 01/2024
Chronic Xarelto OAC
HTN
1st degree av block
Hyperlipidemia
PVCs
h/o stromal tumor s/p resection 2010
JENNIFER 03/29/20: EF 60-65%, mod dilated LA, mildly dilated RA, no thrombus detected in KYLE, mild MR, mild AR
JENNIFER 09/22/20: EF 45%, mild global hypokinesis normal RV size and function, mild to moderate MR, mild central aortic regurgitation
Echo 02/13/2024: EF 45-50%, mild cLVH, mild to moderate MR, mild AR, moderate TR, estimated PAP 35-40mmHg, trivial pericardial effusion
Plan:
Presented with orthopnea and found to be in acute heart failure and rapid atrial fibrillation. He recently saw Dr. Bueno at [facility] for a second opinion and was taken off his Tikosyn and started on nadolol which he did not tolerate.
HF likely related to rapid AFib
Wt down another 3 lbs and 2L negative last 24 hrs.
Transition to oral lasix 40 mg daily.
Check BMP as outpt in one week to reeval potassium.
Echo reviewed and EF 45-50% overall similar to prior JENNIFER 2020.
s/p Successful cardioversion today Feb 16.
Transition to Amiodarone 200 mg 200 mg BID for 2 weeks and then 200 mg daily
He will follow up with Dr Valentin to discuss further rhythm control and possible repeat PVI.
Patient was previously on sotalol and Tikosyn, but both were stopped due to ineffectiveness.
Patient had PVIs 2012 and 2016.
Apparently cannot have Convergent MAZE due to previous stromal surgery.
Cont Xarelto.
Continue Metoprolol 25 mg BID was added for rate control Feb 13
d/c IV Cardizem.
Stable for discharge from cardiac standpoint. He is enthusiatic about discharge.
HPI: Patient came to ER today with symptoms of orthopnea that started last night and is now being admitted with heart failure and cardiology has been consulted. As you recall the patient has a history of paroxysmal atrial fibrillation and had
previous PVI in 2012 and 2016. He recurred following his 2017 ablation and at that time was on sotalol which was discontinued in favor of Tikosyn. There was previous consideration for convergent maze, but previous stromal tumor incision made him
high risk and MAZE was not pursued. Patient was seen in ER on 01/02/2024 was found to be in rapid A-fib. Patient had CV in ER, but feels he recurred 01/15/24. Patient called the office to report recurrence of atrial fibrillation and he was
offered an office visit to discuss another ablation, but instead on the recommendation of physician friends decided to pursue a second opinion at [facility] with Dr Bueno. He saw the [facility] plastic parts fabricator within the last 1 to 2 weeks and they had him stop
Tikosyn and Cardizem and instead put him on rate control therapy with nadolol 20 mg twice daily. He says he felt incredibly fatigued with twice daily dosing and that within the last week the dose was cut to nadolol 20 mg daily. He says that the
[facility] plastic parts fabricator told him he was in A-fib in their office that day, but he did not feel that he was. Since the Tikosyn was stopped however he became increasingly symptomatic and felt that he was in A-fib. In the last 2 to 3 days he has started
with shortness of breath, bloating and orthopnea. He has not been sleeping due to orthopnea and nonproductive cough so he came to ER today and is being admitted with acute HF.
Progress Note - Environmental Services Tech
Subjective
Date of Service: February 17, 2024
Pt seen and examined. No complaints. No chest pain or shortness of breath.
Objective
Labs:
02/17/24 04:35
02/17/24 04:35
Labs
Hgb 13.8 g/dL (13.0-18.0) 02/17/24 04:35
Hct 37.4 % (39.0-52.0) L 02/17/24 04:35
Plt Count 394 10^3/uL (130-400) 02/17/24 04:35
Sodium 136 mmol/L (135-145) 02/17/24 04:35
Potassium 3.6 mmol/L (3.5-5.1) 02/17/24 04:35
BUN 17 mg/dl (9-20) 02/17/24 04:35
Creatinine 0.9 mg/dL (0.7-1.3) 02/17/24 04:35
Glucose 116 mg/dl (70-99) H 02/17/24 04:35
Vital Signs and I&O:
Vital Signs
Temp Pulse Resp BP Pulse Ox
98.4 F 102 20 124/91 92
02/17/24 07:18 02/17/24 07:31 02/17/24 07:18 02/17/24 07:31 02/17/24 07:20
Vital Signs
Temp Pulse Resp BP Pulse Ox
98.4 F 102 20 124/91 92
02/17/24 07:18 02/17/24 07:31 02/17/24 07:18 02/17/24 07:31 02/17/24 07:20
Intake & Output
02/15/24 02/16/24 02/17/24 02/18/24
06:59 06:59 06:59 06:59
Intake Total 480 / 480 1140 / 1140 1570 / 1570
Output Total 2200 / 2200 2800 / 2800 3100 / 3100
Balance -1720 / -1720 -1660 / -1660 -1530 / -1530
Physical Exam
Physical Exam
General: No acute distress, AAOX3
Neck: Negative JVD
Heart: Regular, Negative S3 positive S1/S2, Negative S4, No murmur
Lungs: CTA b/l, negative wheezes/rales/rhonchi
Abd: Positive BS, NT/ND, neg rebound/rigidity/guarding
Ext: Negative cyanosis/clubbing/edema
Neuro: nonfocal
[2024-02-17 09:30] VITALS: BP 126/82
[2024-02-17] MEDS: LASIX IV (09:50)
--- NOTE | 2024-02-17 09:57 | ITS.CL.CARDI ---
[place] Room Operator - Cardioversion
Cardioversion
Procedure Report:
Date of Procedure: Feb 17 2024
Procedure: Cardioversion
Indication: Symptomatic atrial fibrillation
Performing Physician: Jose Love DO, FACC
Technique: The patient was brought to the holding area. Signed informed consent was obtained. A time out was called and performed. The patient was anesthetized by the anesthesia service. Anticoagulation status was reviewed and appropriate. R2 pads
were placed anteriorly and posteriorly. A 200 J synchronized biphasic shock restored normal sinus rhythm without significant bradycardia. There were no complications.
Conclusion: Uncomplicated cardioversion from atrial fibrillation to sinus rhythm.
Recommendation: Routine post cardioversion care. Continue buttermilk drier operator anticoagulation.
[2024-02-17 10:00] VITALS: BP 125/80
--- NOTE | 2024-02-17 10:01 | PTCARENOTE ---
Patient returned from the EP lab in [place] with 1st degree HB. Offers no complaints, monitoring VS.
[2024-02-17 10:47] VITALS: BP 128/87
[2024-02-17] MEDS: KCL 20 MEQ PO (11:02)
[2024-02-17] MEDS: LASIX 40 MG PO (11:03)
--- NOTE | 2024-02-17 12:26 | CM ---
pt to be dc'ed to home today, no dc planning needs noted.
--- NOTE | 2024-02-17 12:45 | PTCARENOTE ---
VSS, seen by Dr. Torres and is ok for discharge. Reviewed discharge and HF instructions and he states his understanding. Aware of amiodarone dosing and needed blood work and follow up appointment. Patient did request a prescription for tessalon
pearles. Tt to Dr. Torres and scrip sent to his pharmacy. Patient discharged home with his .
--- NOTE | 2024-02-17 15:59 | W.PN.UPDATE ---
Update Note
Progress Note Update
I saw and evaluated the patient. I reviewed the resident�s note and agree with findings and plan as documented in the resident�s note.
Problem list
Acute hypoxic respiratory failure -from A-fib/mid range heart failure exacerbation
A-fib with RVR
Asymptomatic cardiac pauses
First AV block
Prolonged QTc
KEYUR
Hyponatremia
Hyperlipidemia
Gastroesophageal reflux disease
Patient underwent successful cardioversion and currently in normal sinus rhythm
Cardiology cleared patient to be discharged on 14 days of amiodarone twice daily followed by daily tapering
Nadolol has been switched to metoprolol
Lasix has been added for possible heart failure
Patient to follow-up with Dr. Valentin in office for repeat evaluation for PVI/ablation.
Discharge home
--- NOTE | 2024-02-17 16:51 | W.PN.HOSP.TC ---
Today's Communication/Plan
-
Patient to be discharged today with new medication regimen.
Assessment / Plan
Assessment / Plan
Impression:
Acute HFmrEF
Rapid atrial fibrillation
Acute hypoxic respiratory insufficiency secondary to above
Leukocytosis
Conditions prior to admission
Hypertension
GERD
Hyperlipidemia
Incidental iliac aneurysm findings
PVCs
History of stromal tumor s/p 2010
Patient underwent successful cardioversion. Patient discharged today and will follow up with Director Supplier Quality Dr. Valentin to discuss permanent management of his A-fib via PVI/ablation
Plan
#Acute hypoxic respiratory failure
-from CHF and rapid a-fib
-Wean O2 as tolerated
-Chest X-Ray- There is improved aeration of the lungs with residual hazy opacities in the lung bases, more pronounced on the right with a small right-sided pleural effusion. Findings may represent edema/atelectasis however infectious process can
appear similar.
-Checking Sputum cultures
-Check UA- negative (02/13)
-Check COVID test- Neg
-Flu (Negative)
-Procalcitonin (Negative)
-Lactic Acid 2.0
#Acute HFmrEF
-Continue IV Lasix 40 mg daily- switch to PO
-Fluid restrict
-Daily weights
-I's and O's
-Echo 02/14/2024 - LV ejection fraction is 45-50%.
-Monitor BMP
-Lasix added
#Rapid atrial fibrillation
-Discharged on 14 days of Amiodarone BID followed by daily tapering
#Leukocytosis
Possibly stress-induced
-Resolved
#Hypertension
-Blood pressure stable during this admission
-d/c nadolol
-Switched to Metoprolol
#Hypokalemia-
-resolving, monitor BMP and continue repletion
# Hyponatremia-
- hypervolemic status- improving
- cont diuresis, switch to PO soon
- repeat BMP in am
#GERD
-Continue famotidine
# Hyperlipidemia
-Continue atorvastatin
#hx of iliac artery aneurysm
-Continue to monitor as outpatient
DVT prophylaxis; Xarelto
CODE STATUS: Full code
Anticipated Discharge: Today
Subjective/Interval History
-
Date of Service: February 17, 2024
Patient was feeling better overnight, went for Cardioversion procedure early in the morning.
Objective Data
-
Labs:
Laboratory Results
02/17/24
04:35
Sodium 136
Potassium 3.6
Chloride 105
Carbon Dioxide 25
BUN 17
Creatinine 0.9
Glucose 116 H
Calcium 8.9
Vital Signs:
Vital Signs
Temp Pulse Resp BP Pulse Ox
98.3 F 65 20 128/87 94
02/17/24 10:47 02/17/24 11:00 02/17/24 10:47 02/17/24 10:47 02/17/24 10:47
I&O
02/16/24 02/17/24 02/18/24
06:59 06:59 06:59
Intake Total 1140 / 1140 1570 / 1570 240 / 240
Output Total 2800 / 2800 3100 / 3100 1350 / 1350
Balance -1660 / -1660 -1530 / -1530 -1110 / -1110
Review of Systems
-
History Source: Patient
Constitutional: Denies Weight Loss, Sleep Disturbance, Chills or Weakness
Respiratory: Denies Cough, Trouble Breathing or Wheezing
Cardiac: Denies Chest Pain, Diaphoresis or Palpitations
Neuro: Denies Headache or Weakness
Physical Exam
-
General: Well Developed, Well Nourished and No Apparent Distress
Respiratory: Clear to Auscultation and Non Labored Respirations
Cardiac: Regular Rhythm and S1/S2
Musculoskeletal: No Clubbing, No Cyanosis and No Edema
Skin: Warm and Dry
Neuro: Awake, Alert, Oriented and AO x 3
Psych: Calm
Data Reviewed
-
Diagnostic Radiology: Report Reviewed by me, Discussed with Physician and Discussed with Patient
Medical Tests (Nuc Med, Echo etc): Report Reviewed by me, Discussed with Physician and Discussed with Patient
Labs: Labs Reviewed by me, Discussed with Physician and Discussed with Patient
--- NOTE | 2024-02-17 16:51 | W.DCSUMMARY ---
Discharge Summary
Discharge Data
Date of Admission: 02/13/24
Date of Discharge: 02/17/24
-
Pending Results: No
Hospital Course
78 year old male with a past medical history of A-fib came to the ED with symptoms of persistent dry cough and shortness of breath. He had reported that the non-productive cough had started the night before and also that his shortness of breath
had been ongoing for the past 3 days. Patient attributed his symptoms to a recent change in medication and came to the ED for evaluation. Patient was started on Cardizem drip in the ED, and given an Amiodarone load with 400mg TID for rate/rhythm
control. Patient was also noted to have leukocytosis which was thought to be stress induced. Patient's hypertension was managed via IV diuresis and his nadolol was continued to be held.
Patient's heart rhythm was continued to be monitored throughout but he stayed in Afib throughout. Cardiology recommended patient undergo cardioversion. Patient underwent successful Cardioversion on 02/16 and discharged with instructions to take 14
days of amiodarone twice daily, followed by daily tapering. Patient's Nadolol was also switched to Metoprolol and Lasix was added to help for possible heart failure. Patient will follow-up with Dr. Valentin in office for repeat evaluation and to talk
about permanent treatment for his Afib via PVI/ablation.
Discharge Plan
-
Patient Disposition: Home (Routine Discharge)
Discharge Diagnosis/Procedures: Persistent atrial fibrillation, successful cardioversion 02/17/24
Condition: Good
Diet: 2 Gram Sodium
Activity: Other activity
Driving Restrictions: No driving for 24 hours
Bathing Restrictions: None
Blood Work: -Check non-fasting blood work in 1 week to monitor potassium levels on Lasix
Specialty Instructions: Weigh Daily- Call MD for wt gain/loss 3 lbs overnight/5 lbs in 1 week
Instructions: *DCA Heart Failure Instructions
Stand Alone Forms: DC Instructions- Cath/EP Lab
Referrals:
Henrique Valentin MD [Active] - 02/21/24 10:00 am (You have an appt to see Dr. Valentin's nurse practitioner, Keiry, at the [place] office on 02/21/24 at 10 AM. Please call [phone] if you need to reschedule.)
Jose C Antoine, DO [Family Provider] -
Additional Discharge Medication Instructions: -STOP taking nadolol
-START taking Toprol XL (metoprolol succinate) 25 mg twice a day
-START taking amiodarone 200 mg twice a day for 2 weeks (stop 03/02/24) and then decreased to 200 mg once a day thereafter
-Continue taking your usual dose of Xarelto 20 mg once a day
-START taking Lasix (furosemide) 40 mg once a day
Prescriptions:
New
furosemide 40 mg Tablet
40 mg PO DAILY Qty: 30 11RF
amiodarone 200 mg Tablet
200 mg PO BID Qty: 28 0RF
metoprolol succinate 25 mg Tablet Extended Release 24 Hr
25 mg PO BID Qty: 60 11RF
amiodarone 200 mg tablet
200 mg PO DAILY Qty: 30 11RF
benzonatate 200 mg capsule
200 mg PO TID PRN (Reason: cough) Qty: 14 0RF
Continued
atorvastatin 20 MG tablet
20 mg PO HS
famotidine 20 MG tablet
20 mg PO HS
multivitamin with folic acid [Tab-A-Karen] 1 TABLET tablet
1 tab PO HS
Xarelto 20 MG tablet
20 mg PO HS
Mucinex DM 30-600 mg Tablet Extended Release 12 Hr
1 tab PO [id number] PRN (Reason: cough)
melatonin 5 mg Tablet
5 mg PO HS PRN (Reason: insomnia)
Discontinued
nadolol 20 mg Tablet
20 mg PO QPM
Discharge Orders:
Discharge Patient (As Directed); Ordered 02/17/24
Ordered By: Deann Murrell
Care Plan Goals
Care Plan Goals:
Problem: Readiness for enhanced knowledge related to diagnosis and treatment plan
Goal: Understand your diagnosis and treatment plan needs, including medications if applicable.
Instructions: Know your diagnosis, underlying causes and treatment plan options, including medications if applicable. Consult with your health care team to learn about your diagnosis and treatment plan, including medications if applicable.
Discharge Date and Time
Discharge Date/Time: 02/17/24 12:32
Print Language: ITALIAN
== END 2024-02-17 12:32 | disposition home or self-care (01) | DRG 291 ==
LOC: IVU 10:22
PROVIDERS: Student in an Organized Health Care Education/Training Program; ADMITTING PHYSICIAN Family Medicine; ATTENDING PHYSICIAN Hospitalist; CONSULT PHYSICIAN Nuclear Medicine Nuclear Cardiology; EMERGENCY PHYSICIAN Emergency Medicine; FAMILY PHYSICIAN Internal Medicine
PROC: 5A2204Z Restoration of Cardiac Rhythm, Single (ICD-10-PCS; 2024-02-17)
DX: I11.0 Hypertensive heart disease with heart failure (principal); J96.01 Acute respiratory failure with hypoxia; I48.19 Other persistent atrial fibrillation; E87.1 Hypo-osmolality and hyponatremia; Z79.01 Long term (current) use of anticoagulants; I50.42 Chronic combined systolic (congestive) and diastolic (congestive) heart failure; E78.00 Pure hypercholesterolemia, unspecified; K21.9 Gastro-esophageal reflux disease without esophagitis; E87.6 Hypokalemia; Z11.52 Encounter for screening for COVID-19
CPT/HCPCS: 71046; 80048; 80053; 81003; 83605; 83735; 83880; 84145; 84484; 85025; 85027; 87502; 87811; 92960; 93005; 93306; 96374; 96375; 99291

== ENCOUNTER → 2024-03-05 09:00 | Outpatient (REF) | payer OTHER, SELFPAY | LOC: PET 09:00 | PROVIDERS: ATTENDING PHYSICIAN Internal Medicine | DX: R59.1 Generalized enlarged lymph nodes (principal); R93.89 Abnormal findings on diagnostic imaging of other specified body structures | CPT/HCPCS: 78816; A9552 ==

== ENCOUNTER → 2024-07-09 14:59 | Outpatient (REF) | payer OTHER, SELFPAY | LOC: RCS 14:59 | PROVIDERS: ATTENDING PHYSICIAN Internal Medicine Cardiovascular Disease; FAMILY PHYSICIAN Internal Medicine | DX: I48.0 Paroxysmal atrial fibrillation (principal) | CPT/HCPCS: 93306 ==

== ENCOUNTER 2024-08-25 12:46 | Inpatient (IN) | payer OTHER, SELFPAY ==
[2024-08-25] VITALS (22 sets, daily range): BP systolic 107–146; BP diastolic 76–110; BMI 25.8; BMI 24.4
--- NOTE | 2024-08-25 09:36 | ED.GENMED ---
History of Present Illness
General
Chief Complaint: Breathing Problem
Time Seen by Provider: 08/25/24 09:20
History of Present Illness
History of Present Illness:
79-year-old male with history of paroxysmal A-fib, hypertension, hyperlipidemia, and stated history of pancreatic cancer status post surgical excision presents to the emergency department via EMS for evaluation of shortness of breath. He reportedly
had a room air oxygen saturation of 66% per EMS. Patient was apparently admitted to [facility] between 2 and 3 weeks ago after hemorrhagic complications from a liver biopsy. He has been off of his Xarelto since prior to that
surgery. Required numerous blood transfusions and apparently his hospital stay was complicated by pneumonia. At this time I do not have detailed records this is simply word of mouth from the patient's history. He states that the liver biopsy was
performed as a follow-up due to abnormal tumor markers in regards to follow-up screening after his pancreatic surgery. Pancreatic surgery was performed at [facility] and the fall 2023.
At this time he reports shortness of breath but denies chest pain. Denies any leg swelling. No abdominal pain, nausea, or vomiting
Past History
Past History
ED Past Medical History: Arrthythmia (Paroxysmal atrial fibrillation), GERD, HTN, Hypercholesterolemia and Other (incidental iliac aneurysm, AAA)
ED Past Surgical History: Cardiac (Ablation, Cardioversion X2) and Other (abdominal sarcoma, splenectomy)
Social History
Tobacco: Non-smoker
Alcohol: None
Drug: None
Personal:
Living: with family
Employment: Retired
Family History
Family History: Hypertension; Negative Early CAD or Sudden
Review of Systems
Review of Systems
Allergies reviewed?: Yes
All Other Systems: ROS reviewed and negative except as documented in HPI and ROS
Phy Exam
Physical Exam
Physical Exam:
GEN: Mildly tachypneic with conversational dyspnea but not ill-appearing
Eyes: PERRLA, EOMs intact, no scleral icterus
HENT: NCAT, oral mucosa moist
Lungs: Tachypneic with conversational dyspnea. Diminished right breath sounds with diffuse Rales, clear left lung sounds
Cardiac: Markedly tachycardic and irregular
Abdomen: S, NT, ND, NABS, no masses or hepatosplenomegaly
Neuro: AO x 3
MSK: No gross deformity or ecchymosis. No edema. No digital clubbing
Skin: No rashes, petechiae. Normal color, no pallor or jaundice.
Psych: Calm, cooperative, proper hygiene
Scores
Heart Failure Risk
Heart Failure Risk Score: Not Applicable
Course
Orders/Labs/Results
Orders:
Orders
08/25/24 09:21
ECG [Electrocardiogram (*1)] Urgent
Reason for Study: Shortness of Breath
EKG- Treatment ONCE
08/25/24 09:31
CR Chest Portable - 1 View Urgent
Comment:
Reason For Exam: SOB
Reason Study Needs to be Portable: Patient Unstable
08/25/24 09:34
Complete Blood Count/With Diff Urgent
08/25/24 09:35
Comprehensive Metabolic Panel Urgent
NT-proBNP Urgent
Troponin I Urgent
Venous Blood Gas Urgent
%Oxygen/Room Air: 66
08/25/24 Lunch
NPO
Allow oral meds: Yes
Allow clear liquids: Sips of Clears
08/25/24 10:25
CT Chest PE Study Urgent
Comment:
Reason For Exam: hypoxia, recent surgery
Potassium Chloride [KCl] 40 meq PO NOW STA
08/25/24 10:43
PTT Urgent
08/25/24 11:28
Heparin 7,300 units IV NOW STA
Metoprolol [Lopressor] 5 mg IV NOW STA
Nursing to Place Non Medication Order As Directed
Physician Order: PTT 6 hours after initial start of Heparin infusion
Above order entered?: Yes
08/25/24 11:30
Heparin 29368 Units/250 ml 25,000 units in 250 ml IV PER PROTOCOL
Weight to be used for heparin protocol in kilograms (kg):: 91
Protocol:: DVT/PE
PTT Goal Range to be used:: PTT 73 to 111 seconds
Order type:: Initial
INITIAL Infusion Dose (UNITS/KG/hr) & then follow protocol:: 18 units/kg/hr
Infusion Dose in UNITS/hr & then follow protocol (UNITS/hr):: 1,600
INFUSION RATE in mL/hr & then follow protocol (mL/hr):: 16
For DVT/PE algorithm, re-bolus for low PTT?: Yes
PTT less than or equal to 64 seconds:: Re-bolus 80 units/kg (max 10,000units). Increase by 400 units/hr
(+ 4mL/hr)
PTT 64.1 to 72.9 seconds:: Re-bolus 40 units/kg (max 5,000 units). Increase by 200 units/hr
(+ 2mL/hr)
PTT 73 to 111 seconds:: Target Range. No change in rate.
PTT 111.1 to 130.9 seconds:: Decrease rate by 200 units/hr (- 2 mL/hr)
PTT 131 to 199.9 seconds:: HOLD for 1 hr. Then decrease by 300 units/hr (- 3mL/hr)
PTT greater than or equal to 200 seconds:: HOLD for 2 hrs & Notify Provider. Then decrease by 400 units/hr
(- 4mL/hr)
Lab follow-up:: Each change, PTT q6h until 2 consecutive are therapeutic. Then
PTT daily.
08/25/24 11:37
Echo 2D MMode Color/Doppler Urgent
Reason for Study: bilat PE w/ R heart strain
Cardiology Consult: Fabian Briseno
08/25/24 11:38
Heparin 81999 Units/250 ml 25,000 units in 250 ml .ROUTE .STK-MED
08/25/24 11:43
Heparin 7,300 units IV PRN PRN
08/25/24 11:44
Heparin 3,600 units IV PRN PRN
08/25/24 11:58
Admit/Transfer Patient As Directed
Co-Sign Provider:
Level of Care: Inpatient admission
Assign to:: ICU
Physician / Group: Dr Daigle
Diagnosis: Pulmonary embolism
Reason for Hospitalization: Patient presented with PE.
Expected length of stay greater than two midnights?: Yes
ELOS- Estimated Length of Stay in days: 2
I certify the patient meets the requirements for IP care: Yes
PRN Pain Medication Management As Directed
May give lesser potent ordered pain med per pt: Yes
preference::
Protocol:: Medication orders for pain may be administered in a
manner that supports deferring to patient preference
when the pt is:
- Requesting an ordered lesser potent pain medication.
Least to most potent pain medications are defined
as: acetaminophen < NSAID < tramadol < opioids
(morphine, oxycodone, hydromorphone).
- Requesting a lesser dose of the same medication IF
ORDERED.
- Requesting a less intrusive route of administration
if both routes are prescribed by the provider (PO <
IV).
08/25/24 12:00
Code Status As Directed
Resuscitation Status: Full Code
08/25/24 12:02
Consult Retail Support Manager [Retail Support Manager Consult] Stat
Consulting Provider: Wade Trejo
Was physician already notified: Yes
Reason for consult: PE
08/25/24 13:31
Amiodarone [Pacerone] 200 mg PO DAILY
Bisacodyl [Dulcolax] 10 mg RECTAL [id number] PRN
Docusate W/Senna [Senokot-S] 1 tablet PO BIDPRN PRN
Furosemide [Lasix] 40 mg PO DAILY
Lactated Ringers [Lr] 1,000 ml IV 85 mls/hr
Morphine Sulfate 2 mg IV Q4HPRN PRN
Polyethylene Glycol Powder [Miralax] 17 grams PO DAILYPRN PRN
08/25/24 13:31
Heparin Protocol- PTT Orders As Directed
PTT per Heparin protocol: -Obtain CBC and baseline PTT - if not already collected.
-Obtain PTT 6 hours from start of infusion. Then, every 6 hours until 2 consecutive
PTT's are therapeutic. Then, PTT Daily.
-With each rate change, obtain PTT every 6 hours until 2 consecutive PTT's are
therapeutic. Then, PTT Daily.
Activity As Directed
Activity Level: Bedrest for limited time
Bedrest duration in hours then activity as indicated above:: 12
Notify MD As Directed
Notify physician if: PTT is greater than or equal to 200.
Vital Signs As Directed
Frequency: Per unit guidelines
O2 Therapy [RESP] Routine
Titrate/Wean O2 to maintain O2 sat greater than (%): 94
08/25/24 18:00
PTT Routine
08/25/24 22:00
Atorvastatin [Lipitor] 20 mg PO HS
08/26/24 06:00
Basic Metabolic Panel IN AM
Complete Blood Count/No Diff IN AM
08/27/24 06:00
Complete Blood Count/No Diff Q2D
Comment: notify provider: Platelet count < 130,000 or decrease by 50% from baseline
08/29/24 06:00
Complete Blood Count/No Diff Q2D
Comment: notify provider: Platelet count < 130,000 or decrease by 50% from baseline
08/31/24 06:00
Complete Blood Count/No Diff Q2D
Comment: notify provider: Platelet count < 130,000 or decrease by 50% from baseline
09/02/24 06:00
Complete Blood Count/No Diff Q2D
Comment: notify provider: Platelet count < 130,000 or decrease by 50% from baseline
09/04/24 06:00
Complete Blood Count/No Diff Q2D
Comment: notify provider: Platelet count < 130,000 or decrease by 50% from baseline
09/06/24 06:00
Complete Blood Count/No Diff Q2D
Comment: notify provider: Platelet count < 130,000 or decrease by 50% from baseline
09/08/24 06:00
Complete Blood Count/No Diff Q2D
Comment: notify provider: Platelet count < 130,000 or decrease by 50% from baseline
09/10/24 06:00
Complete Blood Count/No Diff Q2D
Comment: notify provider: Platelet count < 130,000 or decrease by 50% from baseline
Abnormal Lab Results
08/25/24 08/25/24
09:34 09:35
WBC 11.6 H 10^3/uL
(4.8-10.8)
MCHC 31.8 L g/dL
(33.0-37.0)
RDW 21.0 H %
(11.5-14.5)
Plt Count 524 H 10^3/uL
(130-400)
Abs Immat Gran (auto) 0.1 H 10^3/uL
(0-0.05)
Absolute Neuts (auto) 9.9 H 10^3/uL
(1.4-6.5)
Absolute Lymphs (auto) 0.5 L 10^3/uL
(1.2-3.4)
Absolute Monos (auto) 1.0 H 10^3/uL
(0.1-0.6)
Immature Gran % 0.9 H %
(0-0.5)
Neutrophils % 85.0 H %
(42.2-75.2)
Lymphocytes % 4.7 L %
(20.5-51.1)
VBG pH 7.47 H
(7.32-7.43)
VBG HCO3 32.8 H mmol/L
(22-27)
Potassium 3.3 L mmol/L
(3.5-5.1)
Carbon Dioxide 33 H mmol/L
(22-30)
BUN 29 H mg/dl
(9-20)
Glucose 128 H mg/dl
(70-99)
Total Bilirubin 2.3 H mg/dl
(0.2-1.3)
AST 94 H U/L
(17-59)
ALT 77 H U/L
(0-50)
Alkaline Phosphatase 283 H U/L
(38-126)
Albumin 3.0 L g/dl
(3.5-5.0)
08/25/24 09:34
08/25/24 09:35
Vital Signs
Initial and Last Documented VS:
Initial Vital Signs
Pulse Resp BP Pulse Ox
130 26 132/97 84
08/25/24 09:23 08/25/24 09:23 08/25/24 09:23 08/25/24 09:23
Last Documented Vital Signs
Temp Pulse Resp BP Pulse Ox
97.6 F 122 21 146/86 93
08/25/24 13:38 08/25/24 14:05 08/25/24 14:05 08/25/24 14:05 08/25/24 14:05
MDM/Problems Addressed
MDM/Problems Addressed:
79-year-old male presents with shortness of breath found to be in rapid atrial fibrillation with a new right lower lobe pleural effusion. Given his degree of hypoxemia and recent complicated hospital stay we opted for a PE study which unfortunately
revealed bilateral pulmonary embolisms with evidence for right heart strain. Patient was stable outside of his tachyarrhythmia in the emergency department, opted to avoid rate control given that his rates are maintained between 120 and 130 for the
majority of my evaluation. PERT alert was called and the case was reviewed with interventional radiology as well as pulmonology, at this time do not see clear indication for urgent thrombolysis however will pursue urgent echocardiogram for further
workup. Will admit to the intensive care unit hospitalist service for further management
*Critical Care Note
Total Time (30-74mins, 75-104mins- exclusive of procedures): 55 minutes
comment:
Critical care time: 55 minutes
Critical care time was exclusive of: Separately billable procedures, treating other patients, and teaching time
Critical care was necessary to treat or prevent imminent or life-threatening deterioration of the following conditions: Bilateral pulmonary embolism, respiratory failure with hypoxia
Critical care time spent personally by me on the following activities:
[x] Review of old charts
[x] Obtaining history from patient or surrogate
[x] Ordering and review of the laboratory studies
[x] Ordering and review of radiographic studies
[x] Ordering and performing treatments and interventions
[x] Patient patient's response to treatment
[x] Development of treatment plan with patient or surrogate
Update Note
Update Note:
Reviewed discharge summary on patient's phone via [employer], he underwent liver biopsy at [facility] however there was a hepatic artery injury with significant hemoperitoneum, patient was then flown to [facility] where he
underwent hepatic artery embolization. While in the ICU the patient developed a fever and was treated with antibiotics however x-rays revealed no evidence of pneumonia at that time and antibiotics were discontinued. He received 4 units of PRBCs
and hemoglobin gradually generally up trended, at time of discharge hemoglobin was 10.3.
ED Attending Note
-
Portions of this chart may have been created with voice recognition software.� Occasional wrong word or��sound alike� substitutions may have occurred due to the inherent limitations of voice recognition software.
Discharge Plan
Departure
Patient Disposition: Admit
Date of Disposition: 08/25/24
Time of Disposition: 11:48
Admit to: IMU
Presentation/result/management discussed w/ accepting MD/DO: Hospitalist
Discharge Problem:
Bilateral pulmonary embolism
Interventions
Interventions:
*Risk Screen - Suicide Last Done: 08/25/24 09:23
*General Assessment Last Done: 08/25/24 09:23
*Neglect/Abuse Screening Last Done: 08/25/24 09:23
*ED COVID-19 Vaccine History Last Done: 08/25/24 13:43
*Nursing Disposition Last Done: 08/25/24 13:36
ED- Cardiac Assessment Last Done: 08/25/24 09:42
ED- Pulmonary Assessment Last Done: 08/25/24 09:42
Discharge Date and Time
Discharge Date/Time: 08/25/24 13:36
[2024-08-25 09:44] LABS: % Basophils 0.3 % (0-2); % Eosinophils 0.4 % (0-6); % Immature Granulocytes 0.9 % (0-0.5); % Lymphocytes 4.7 % (20.5-51.1); % Monocytes 8.7 % (1.7-9.3); Absolute Eosinophils 0.1 10^3/uL (0-0.7); Absolute Immature Granulocytes 0.1 10^3/uL (0-0.05); Absolute Lymphocytes 0.5 10^3/uL (1.2-3.4); Absolute Neutrophils 9.9 10^3/uL (1.4-6.5); Hematocrit 41.2 % (39.0-52.0); Hemoglobin 13.1 g/dL (13.0-18.0); Mean Corp Hgb Conc. 31.8 g/dL (33.0-37.0); Mean Corpuscular Hgb 27.3 pg (27.0-31.0); Mean Corpuscular Volume 85.8 fL (80.0-94.0); Mean Platelet Volume 8.9 fL (7.4-10.4); Nucleated Red Blood Cells % 0.2 % (-); Platelet Count 524 10^3/uL (130-400); White Blood Cell Count 11.6 10^3/uL (4.8-10.8)
[2024-08-25 09:50] LABS: Venous Blood Gas HCO3 32.8 mmol/L (22-27); Venous Blood Gas O2 Sat % 50.8 %; Venous Blood Gas pCO2 45 mmHg (35-48); Venous Blood Gas pH 7.47 (7.32-7.43); Venous Blood Gas pO2 32 mmHg (30-50)
--- NOTE | 2024-08-25 10:03 | EDRN ---
Patient currently on 6L NC with Spo2 around 90%. Khris LEDEZMA aware. Patient given small amount of water upon request. Patient's pants were removed per his request so ghe can use the urinal when he needs to. Lights dimmed for comfort and patient's call
wagner within reach. Daughter is bedside.
[2024-08-25 10:08] LABS: ALT (SGPT) 77 U/L (0-50); AST (SGOT) 94 U/L (17-59); Alkaline Phosphatase 283 U/L (38-126); Blood Urea Nitrogen 29 mg/dl (9-20); Calcium 8.5 mg/dl (8.4-10.2); Carbon Dioxide 33 mmol/L (22-30); Chloride 98 mmol/L (98-107); Estimated Creatinine Clearance 67 ml/min; Glucose 128 mg/dl (70-99); Potassium 3.3 mmol/L (3.5-5.1); Sodium 137 mmol/L (135-145); Total Bilirubin 2.3 mg/dl (0.2-1.3); Total Protein 6.6 g/dl (6.3-8.2); eGFR > 60.00
[2024-08-25 10:19] LABS: NT-proBNP 7130 pg/ml; Troponin I 0.012 ng/ml
[2024-08-25] MEDS: KCL 40 MEQ PO ×2 (10:48→14:46)
[2024-08-25 11:17] LABS: APTT 28.2 Sec (23.4-35.0)
--- NOTE | 2024-08-25 11:33 | ED TECH ---
A PERT ALERT was called# [phone]# @11:30 AM per Nic Duffy.
[2024-08-25] MEDS: HEPARIN 25000 UNITS/250 ML IV (11:55)
[2024-08-25] MEDS: HEPARIN 7300 UNITS IV ×2 (12:01→18:31)
--- NOTE | 2024-08-25 12:03 | HPS.HSE ---
Addendum entered and electronically signed by Konstantin Daigle MD 08/25/24 14:07:
Hypokalemia--> replete oral and IV. Trend
Original Note:
Family Physician
-
Family Physician: Jose C Antoine
Chief Complaint
-
Hypoxia
History of Present Illness
Patient 79 years old male with history of A-fib, hypertension, dyslipidemia, pancreatic cancer status post surgical intervention, history of massive bleed from surgical intervention from the liver recently as well, came into the hospital with
shortness of breath and hypoxia. Patient has been experiencing shortness of breath and he was noted to be hypoxic in the 60% range by family members who are in the medical field. He denies chest pain, leg pain, leg swelling. She denies fevers or
chills. He had a complicated surgical history recently for pancreatic-biliary malignancy. In the ER, he was noted to be hypoxic, tachypneic, and tachycardic and CT scan of the chest shows multiple bilateral pulmonary emboli and associated right
heart strain. Troponin normal, BNP 7130, albumin 3, increased BUN and LFTs, hemoglobin 13, WBC 11.6, platelet count 524. PERT alert was initiated. He was referred to hospitalist service for further evaluation.
Medical History
Past Medical History
Past Medical History: Reports Other
Additional Past Medical History:
Hypertension
Dyslipidemia
Paroxysmal atrial fibrillation
Moderate tricuspid regurgitation
Chronic diastolic CHF
GERD
Prostate cancer
Primary leiomyosarcoma
Iliac aneurysm
AAA
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
Past Surgical History: Reports Other (Cardiac ablation 2013, cardioversion x 2, splenectomy, pancreatectomy.)
Social History
Tobacco: Non-smoker
Alcohol: None
Drug: None
Personal:
Living: With Family
Employment: Retired
Family History
Family History: Not pertinent
Allergies / Home Medications
Allergies reflects when Allergies were last updated in [employer].
Home Medications with original date entered in [employer]
Allergy/Medication List:
Allergies
Allergy/AdvReac Type Severity Reaction Status Date / Time
No Known Drug Allergies Allergy Unknown Unknown Verified 08/25/24 09:22
Home Medications
atorvastatin 20 mg tablet 20 mg PO HS High cholesterol 03/31/13
multivitamin with folic acid 400 mcg tablet (Tab-A-Karen) 1 tab PO HS Supplement 01/19/19
rivaroxaban 20 mg tablet (Xarelto) 20 mg PO HS Blood clot prevention/tx 09/21/20
melatonin 5 mg tablet 5 mg PO HSPRN PRN insomnia 02/15/24
amiodarone 200 mg tablet 200 mg PO DAILY Arrhythmia #30 tabs 02/17/24
furosemide 40 mg tablet 40 mg PO DAILY Heart Failure #30 tabs 02/17/24
metoprolol succinate 25 mg tablet,extended release 24 hr 25 mg PO BID Arrhythmia #60 tabs 02/17/24
benzonatate 100 mg capsule 100 mg PO TIDPRN PRN cough 08/25/24
lorazepam 0.5 mg tablet 0.5 mg PO HSPRN PRN sleep 08/25/24
ondansetron HCl 8 mg tablet 8 mg PO Q8HPRN PRN nausea/vomiting 08/25/24
oxycodone 5 mg tablet 5 mg PO Q6HPRN PRN moderate to severe pain 08/25/24
prochlorperazine maleate 10 mg tablet 10 mg PO Q6HPRN PRN nausea/vomiting 08/25/24
temazepam 15 mg capsule 15 mg PO HSPRN PRN insomnia 08/25/24
Review of Systems
-
A 12 point ROS was completed and negative except as noted: Yes
Physical Exam
Vital Signs
Vital Signs
Pulse Resp BP Pulse Ox
126 22 145/89 90
08/25/24 11:00 08/25/24 11:00 08/25/24 11:00 08/25/24 11:30
Physical exam:
General: Acutely ill
HEENT: Normocephalic, Atraumatic and Moist Mucous Membranes
Respiratory: Clear to Auscultation; Negative Wheezes, Rales or Rhonchi
Cardiac: Irregular rate and rhythm, tachycardic, and S1/S2
GI: Soft, Nontender and Nondistended
Musculoskeletal: No Clubbing, No Cyanosis and No Edema
Neuro: Awake, Alert and Oriented, no gross neurological deficit
Psych: Calm
Physical Exam
General: Other
Laboratory Results
-
08/25/24 09:34
08/25/24 09:35
Laboratory Results
APTT 28.2 Sec (23.4-35.0) 08/25/24 10:43
Total Bilirubin 2.3 mg/dl (0.2-1.3) H 08/25/24 09:35
AST 94 U/L (17-59) H 08/25/24 09:35
ALT 77 U/L (0-50) H 08/25/24 09:35
Alkaline Phosphatase 283 U/L (38-126) H 08/25/24 09:35
Troponin I 0.012 ng/ml 08/25/24 09:35
Data Reviewed
-
Diagnostic Radiology: Image Personally Visualized and interpreted
CT Scan: Image Personally Visualized and interpreted
Lab Data: Labs Reviewed by me
Impression/Plan
-
IMPRESSION:
Patient 79 years old male with multiple comorbidities presented to the hospital with acute hypoxic respiratory failure due to bilateral PE with right ventricular strain. Patient critically ill and remains at increased risk morbidity mortality due
to acute presentation and comorbidities.
CT scan of the chest:
1.).There are multiple bilateral pulmonary emboli including:
-Central embolus in the right main pulmonary artery
-Embolus at the right upper lobe pulmonary artery
-Embolus in the central lingular and lower lobe branches of the left pulmonary artery
-Peripheral subsegmental left upper lobe emboli.
2). There is associated right heart strain with an RV/LV ratio of 2/1
3). There are multiple low density hepatic masses measuring up to 3 cm, new when compared with the 03/05/2024 PET scan and most consistent with hepatic metastasis. Further evaluation with PET scan may be useful.
4). Moderate perihepatic ascites, new when compared with the prior study
5). There is moderate right-sided pleural effusion with compressive atelectasis at the right lung base
6). There is small left-sided pleural effusion with compressive atelectasis at the left lung base
PLAN:
Acute hypoxic respiratory failure:
Due to PE
Oxygen supplementation
Seen and reviewed chest x-ray and chest CT scan from today.
Rest as below
Bilateral PE:
Started on heparin drip
Will need to be evaluated if catheter-based thrombolytic will be required
Pulmonary/critical care consulted-discussed with physician today
IVF
Monitor hemoglobin
Elevated LFTs:
Due to underlying malignancy
Monitor trend
Paroxysmal A-fib with rapid ventricular response:
Seen and reviewed twelve-lead EKG with A-fib in the 130s
IV Lopressor as needed
Cardiac monitoring
Beta-blockers and amiodarone
Chronic HFpEF:
On diuretic
Monitor volume status closely
Pancreatic cancer:
Recent pancreatobiliary surgery
CODE STATUS:
Full code
Total Critical Care Time__45___ minutes. I was immediately available to the patient and staff. I personally examined, reviewed labs, diagnostic images/reports, interpretations, treatment plans, discussed patient care with other providers and
family or caregivers (if patient is unable to make decisions), entered orders as appropriate and documented the medical record.
--- NOTE | 2024-08-25 12:04 | EDRN ---
Patient was placed on midflow by respiratory. Patient states that he feels better on the midflow. 2nd IV started prior to heparin being started. Bilateral 20g IV w/ heparin in the right. Patient still noted to be in Afib on the monitor. Patient has
urinal within reach if needed but denies use so far.
Patient was seen by hospitalist and is waiting for admission orders at this time.
ECHO is being completed bedside at this time.
--- NOTE | 2024-08-25 13:09 | CON.INTV ---
Consultation
Consultation Request
Date/Time Consultation Requested: 08/25/2024-1:30 PM
Date/Time Consultation Performed: 08/25/2024-1:30 PM
Requesting Provider: Hospitalist
Performing Provider: Dr. Trejo
Reason for Consultation: Shortness of breath/pulmonary embolism/critical care management
Medical History
-
Chief Complaint: Shortness of breath
History of Present Illness:
79-year-old non-smoking male with history of hypertension, hyperlipidemia diastolic CHF, GERD, pancreatic cancer status post liver biopsy resulting in hepatic artery injury with hemoperitoneum status post hepatic artery embolization presents with
shortness of breath over 1 week progressive with severe shortness of breath this morning found to have bilateral pulmonary emboli with right ventricular strain-corporate quality engineer consulted for pulmonary embolism/rapid atrial fibrillation/critical care
management 08/25/2024. Patient denies shortness of breath at rest but had significant dyspnea with minimal exertion. He denies any chest pain, pleurisy, chest congestion, productive cough but states he had respiratory tract infection recently. He
was reportedly viral tested and was negative. He denies any abdominal pain, nausea, leg swelling or focal weakness.
Past Medical History
Past Medical History: None (Hypertension. Hyperlipidemia. PAF. Chronic diastolic CHF. GERD. Prostate cancer. Leiomyosarcoma. Iliac aneurysm. AAA. Pancreatic cancer/pancreatectomy/splenectomy. Hepatic lesion status postbiopsy/hepatic artery
injury/hemoperitoneum/hepatic artery embolization.)
Social History
Tobacco: Non-smoker
Alcohol: None
Drug: None
Personal:
Living: With Family
Occupational Exposures: No known asbestos exposure
Environmental Exposures: No known tuberculosis exposure
Family History
Family History: Reviewed & Not Pertinent
Allergies / Home Medications
Allergies
Allergy/AdvReac Type Severity Reaction Status Date / Time
No Known Drug Allergies Allergy Unknown Unknown Verified 08/25/24 09:22
Home Medications
�Medication �Instructions �Recorded �Confirmed �Last Taken �Type
atorvastatin 20 mg tablet 20 mg PO HS High cholesterol 03/31/13 08/25/24 08/24/24 History
multivitamin with folic acid 400 1 tab PO HS Supplement 01/19/19 08/25/24 08/24/24 History
mcg tablet (Tab-A-Karen)
rivaroxaban 20 mg tablet (Xarelto) 20 mg PO HS Blood clot 09/21/20 08/25/24 4 Weeks Ago History
prevention/tx ~07/28/24
melatonin 5 mg tablet 5 mg PO HSPRN PRN insomnia 02/15/24 08/25/24 Unknown History
amiodarone 200 mg tablet 200 mg PO DAILY Arrhythmia #30 tabs 02/17/24 08/25/24 08/24/24 Rx
furosemide 40 mg tablet 40 mg PO DAILY Heart Failure #30 02/17/24 08/25/24 08/24/24 Rx
tabs
metoprolol succinate 25 mg 25 mg PO BID Arrhythmia #60 tabs 02/17/24 08/25/24 08/24/24 Rx
tablet,extended release 24 hr
benzonatate 100 mg capsule 100 mg PO TIDPRN PRN cough 08/25/24 08/25/24 Unknown History
lorazepam 0.5 mg tablet 0.5 mg PO HSPRN PRN sleep 08/25/24 08/25/24 Unknown History
ondansetron HCl 8 mg tablet 8 mg PO Q8HPRN PRN nausea/vomiting 08/25/24 08/25/24 Unknown History
oxycodone 5 mg tablet 5 mg PO Q6HPRN PRN moderate to 08/25/24 08/25/24 Unknown History
severe pain
prochlorperazine maleate 10 mg 10 mg PO Q6HPRN PRN nausea/vomiting 08/25/24 08/25/24 Unknown History
tablet
temazepam 15 mg capsule 15 mg PO HSPRN PRN insomnia 08/25/24 08/25/24 08/24/24 History
Review of Systems
-
Unable to Obtain full review of systems at this time due to: Other (Per HPI)
Vitals / Labs / Diagnostic Testing
Vital Signs
Pulse Resp BP Pulse Ox
129 23 145/89 94
08/25/24 12:00 08/25/24 12:00 08/25/24 11:00 08/25/24 12:00
Lab Data
08/25/24 09:34
08/25/24 09:35
Laboratory Results
08/25/24
10:43
APTT 28.2
Diagnostic Testing:
Physical Exam
-
Exam:
Well-nourished and well-developed in no apparent distress
HEENT-atraumatic, normocephalic
Neck-supple, no JVD, no bruit
Heart-regular rate and rhythm-no murmurs, rubs or gallops
Chest-clear to auscultation, no wheezes, crackles
Back-no tenderness
Abdomen-soft, nontender, nondistended, no hepatosplenomegaly
Extremities-no cyanosis, clubbing, edema and good peripheral pulses
Integument-intact, no rashes, lesions or ecchymosis
Neurology-alert and oriented, nonfocal motor and sensory exam
Assessment
-
79-year-old non-smoking male with history of hypertension, hyperlipidemia diastolic CHF, GERD, pancreatic cancer status post liver biopsy resulting in hepatic artery injury with hemoperitoneum status post hepatic artery embolization presents with
shortness of breath over 1 week progressive with severe shortness of breath this morning found to have bilateral pulmonary emboli with right ventricular strain-corporate quality engineer consulted for pulmonary embolism/rapid atrial fibrillation/critical care
management 08/25/2024.
Bilateral pulmonary emboli with right ventricular strain
Suspect provoked-recent surgery/hospitalization/underlying hypercoagulability from malignancy
PESI 171-class V-high risk
Rapid atrial fibrillation
Mild leukocytosis
Hypokalemia
Hyperglycemia
Transaminitis
Hypoalbuminemia
Pleural effusion-moderate right-sided and small left sided pleural effusion
Conditions present prior to admission:
Hypertension.
Hyperlipidemia.
PAF.
Chronic diastolic CHF.
GERD.
Prostate cancer.
Leiomyosarcoma.
Iliac aneurysm.
Cardiac ablation 2012
Cardioversions x 2
AAA.
Pancreatic cancer/pancreatectomy/splenectomy-details unclear
Hepatic lesion status postbiopsy/hepatic artery injury/hemoperitoneum/hepatic artery embolization.
Plan
Patient will be admitted to medical intensive care unit for close observation
Supplemental oxygen as needed
Aspiration precautions
Incentive spirometry
CT chest personally reviewed-see below
Check echocardiogram
Check lower extremity ultrasound
May need eventual hypercoagulable workup
Full PESI summarized above
Heparin drip or Lovenox 1 mg/kg every 12 hours
Benefits and risks of thrombolytics therapy were reviewed with patient
Patient has very high PESI score with large clot burden, ever, he recently had life-threatening hemoperitoneum-currently risks of aggressive thrombolytic therapy outweigh [id number] notified of options, reasons for conservative
standard of care therapy and is in agreement
Replace electrolytes
Follow-up liver functions
Bedrest �24 hours
DVT prophylaxis-on full anticoagulation
Early nutrition
Early mobilization
Outpatient pulmonary follow-up
Outpatient oncology/hematology follow-up
Critical care statement: A total of 65 minutes of critical care time was provided for this patient today. This includes management of unstable vital signs, evaluation for thrombolytic therapy, management of large pulmonary embolism, evaluation of
the patient at bedside, reviewing the patient's pertinent medical records including radiographs, microbiology, laboratory evaluations, and discussion with primary team, consultants, pharmacy, and critical care nursing.
Diagnostic data:
Chest x-ray 09/21/2020-mild interstitial edema
CT chest abdomen and pelvis 02/12/2024-mild mediastinal lymphadenopathy, gallstones, possible acute cholecystitis, mild pancreatic ductal dilation and cystic pancreatic masses, moderate diverticulosis, new cystic mass anterior left pelvis, necrotic
lymph node cannot be excluded,
CT chest 08/25/2024-bilateral pulmonary emboli including central right main, right upper lobe, central lingular and left lower lobe as well as left upper lobe subsegments, right heart strain, multiple low-density hepatic masses measuring 3 cm
consistent with hepatic metastases, moderate right sided pleural effusion
PET scan 03/05/2024-focal uptake in the body of the pancreas-SUV 6.8, no FDG uptake correlating to subcarinal lymph nodes or the left pelvic sidewall cystic lesion
Echocardiogram 07/09/2024-EF 50-55%, PA systolic 41
Data Reviewed
-
EKG: Report reviewed by me
Radiology: Report reviewed by me
CT Scan: Image personally visualized and interpreted and Report reviewed by me
Medical Tests (Nuc Med, Echo etc): Report reviewed by me
Labs: Labs reviewed by me
Old Records: Reviewed
Critical Care Time (in minutes): 65
[2024-08-25] MEDS: PACERONE 200 MG PO (13:39)
[2024-08-25] MEDS: LR 1000 IV (13:39)
[2024-08-25] MEDS: LASIX 40 MG PO (13:39)
--- NOTE | 2024-08-25 14:04 | PTCARENOTE ---
pt received from er- aox4, afib on monitor rate 120s-130s, Dr. Grullon at bedside and aware. pt given po amio. pt denies sob or pain at this time. on 10L midflow sats 92%. pt and daughter at bedside- both provided education and plan of care,
verbalized understanding. all safety precautions in place, oriented to room, call wagner within reach. heparin gtt and ivf continue as per order. pt verbalized understanding to NPO status.
[2024-08-25] MEDS: TOPROL XL 25 MG PO ×2 (14:45→20:35)
[2024-08-25] MEDS: MORPHINE SULFATE 2 MG IV (14:53)
[2024-08-25 18:09] LABS: INR 1.17; PT 15.2 Sec (11.4-14.6)
--- NOTE | 2024-08-25 18:09 | PTCARENOTE ---
pt continues on heparin and ivf, tolerated dinner. pt states breathing has improved, on 15L midflow. assessment unchanged further.
[2024-08-25 18:10] LABS: APTT 58.9 Sec (23.4-35.0)
--- NOTE | 2024-08-25 20:00 | PTCARENOTE ---
Resumed care of pt this evening. Received pt on heparin gtt infusing at 20 units/hr via left peripheral IV site. Pt is A&Ox3, can move all 4 extremities and can make needs known. Pt is in A-fib on tele monitor, has an irregular apical, no edema, and
b/l palpable pedal pulses. Pt is on 15L of O2 via midflow tubing and is satting at 95% pulse ox. On auscultation pt lungs sound coarse 1/2 way up on the right lung and diminished TO. Pt's abdomen is round w/ active BS. Pt voiding in urinal. Skin is
C/D/I.
[2024-08-25] MEDS: ATIVAN 0.5 MG PO (20:35)
[2024-08-25] MEDS: MELATONIN 5 MG PO (20:35)
[2024-08-25] MEDS: LIPITOR 20 MG PO (20:47)
[2024-08-26] VITALS (20 sets, daily range): BP systolic 112–143; BP diastolic 77–111; PULSE 81; O2SAT 93; BMI 24.8
[2024-08-26] MEDS: MORPHINE SULFATE 2 MG IV (00:25)
--- NOTE | 2024-08-26 00:30 | PTCARENOTE ---
Pt c/o rt sided discomfort and requested pain medication. PRN morphine administered by this RN per order.
[2024-08-26 01:08] LABS: APTT 196.6 Sec (23.4-35.0)
[2024-08-26] MEDS: HEPARIN 25000 UNITS/250 ML IV ×2 (02:17→16:52)
--- NOTE | 2024-08-26 02:30 | PTCARENOTE ---
Upon reassessment pt is resting comfortably. Heparin gtt titrated per protocol.
[2024-08-26 06:10] LABS: Hematocrit 38.3 % (39.0-52.0); Hemoglobin 12.2 g/dL (13.0-18.0); Mean Corp Hgb Conc. 31.9 g/dL (33.0-37.0); Mean Corpuscular Hgb 27.5 pg (27.0-31.0); Mean Corpuscular Volume 86.3 fL (80.0-94.0); Mean Platelet Volume 9.3 fL (7.4-10.4); Platelet Count 473 10^3/uL (130-400); Red Blood Cell Count 4.44 10^6/uL (4.70-6.10); Red Cell Dist. Width 21.1 % (11.5-14.5); White Blood Cell Count 11.8 10^3/uL (4.8-10.8)
[2024-08-26 06:21] LABS: INR 1.13; PT 14.8 Sec (11.4-14.6)
[2024-08-26 06:44] LABS: ALT (SGPT) 76 U/L (0-50); AST (SGOT) 88 U/L (17-59); Albumin 2.8 g/dl (3.5-5.0); Alkaline Phosphatase 284 U/L (38-126); Blood Urea Nitrogen 30 mg/dl (9-20); Calcium 8.2 mg/dl (8.4-10.2); Carbon Dioxide 30 mmol/L (22-30); Chloride 99 mmol/L (98-107); Estimated Creatinine Clearance 67 ml/min; Glucose 125 mg/dl (70-99); Magnesium 2.3 mg/dl (1.6-2.3); Sodium 136 mmol/L (135-145); Total Protein 6.3 g/dl (6.3-8.2); eGFR > 60.00
--- NOTE | 2024-08-26 07:42 | W.PN.INTV ---
Today's Communication / Plan
Recommendations
Continue anticoagulation
Lower extremity ultrasound positive for extensive right-sided DVT
Atrial fibrillation rate control
Likely lifelong anticoagulation
Hemodynamics have improved-could be transferred out of ICU-pulmonary will follow briefly
Assessment
-
79-year-old non-smoking male with history of hypertension, hyperlipidemia diastolic CHF, GERD, pancreatic cancer status post liver biopsy resulting in hepatic artery injury with hemoperitoneum status post hepatic artery embolization presents with
shortness of breath over 1 week progressive with severe shortness of breath this morning found to have bilateral pulmonary emboli with right ventricular strain-sleep tech consulted for pulmonary embolism/rapid atrial fibrillation/critical care
management 08/25/2024.
Bilateral pulmonary emboli with right ventricular strain
Suspect provoked-recent surgery/hospitalization/underlying hypercoagulability from malignancy
PESI 171-class V-high risk
Right lower extremity DVT
Rapid atrial fibrillation
Mild leukocytosis
Hypokalemia
Hyperglycemia
Transaminitis
Hypoalbuminemia
Pleural effusion-moderate right-sided and small left sided pleural effusion
Conditions present prior to admission:
Hypertension.
Hyperlipidemia.
PAF.
Chronic diastolic CHF.
GERD.
Prostate cancer.
Leiomyosarcoma.
Iliac aneurysm.
Cardiac ablation 2012
Cardioversions x 2
AAA.
Pancreatic cancer/pancreatectomy/splenectomy-details unclear
Hepatic lesion status postbiopsy/hepatic artery injury/hemoperitoneum/hepatic artery embolization.
Plan
Hemodynamically he has improved
Continue supplemental oxygen-attempt to wean
Aspiration precautions
Incentive spirometry encouraged
Nebulizers if needed-currently not bronchospastic
CT chest personally reviewed-see below
Echocardiogram 08/25/2024-EF 55-60%, intermediate diastolic dysfunction due to atrial fibrillation, aortic sclerosis, mild aortic regurgitation, PA systolic estimated 39
Lower extremity ultrasound 08/26/2024-extensive right side DVT-occlusive DVT right superficial femoral and nonocclusive thrombus right common femoral and right posterior tibial vein
Strongly suspect hypercoagulable from underlying pancreatic cancer
Atrial fibrillation rate control
Full PESI summarized above-class V-high risk
Continue heparin
Patient was on Xarelto for atrial fibrillation-was off for 3 weeks prior to pulmonary embolism-reinitiate oral anticoagulant in the next 24-48 hours
Benefits and risks of thrombolytics/thrombectomy therapy were reviewed with patient
Patient has very high PESI score with large clot burden, ever, he recently had life-threatening hemoperitoneum-currently risks of aggressive thrombolytic therapy outweigh [id number] notified of options, reasons for conservative
standard of care therapy and is in agreement
Replace electrolytes as needed
Follow-up liver functions
Bedrest �24 hours-thereafter begin to ambulate
DVT prophylaxis-on full anticoagulation
Early nutrition
Early mobilization
Patient hemodynamically stable and could be transferred out of ICU-pulmonary will follow briefly
Outpatient pulmonary follow-up
Outpatient oncology/hematology [id number] reportedly has appointment at [facility] for potential initiation of pancreatic cancer therapy
Discussed in person with daughter who was present during multidisciplinary rounds 08/26/2024
Critical care statement: A total of 35 minutes of critical care time was provided for this patient today. This includes management of unstable vital signs, evaluation for thrombolytic therapy, management of large pulmonary embolism, evaluation of
the patient at bedside, reviewing the patient's pertinent medical records including radiographs, microbiology, laboratory evaluations, and discussion with primary team, consultants, pharmacy, and critical care nursing.
Diagnostic data:
Chest x-ray 09/21/2020-mild interstitial edema
CT chest abdomen and pelvis 02/12/2024-mild mediastinal lymphadenopathy, gallstones, possible acute cholecystitis, mild pancreatic ductal dilation and cystic pancreatic masses, moderate diverticulosis, new cystic mass anterior left pelvis, necrotic
lymph node cannot be excluded,
CT chest 08/25/2024-bilateral pulmonary emboli including central right main, right upper lobe, central lingular and left lower lobe as well as left upper lobe subsegments, right heart strain, multiple low-density hepatic masses measuring 3 cm
consistent with hepatic metastases, moderate right sided pleural effusion
PET scan 03/05/2024-focal uptake in the body of the pancreas-SUV 6.8, no FDG uptake correlating to subcarinal lymph nodes or the left pelvic sidewall cystic lesion
Echocardiogram 07/09/2024-EF 50-55%, PA systolic 41
Subjective Dataa
Subjective Data
Date of Service:
Date of Service: August 26, 2024
Chief Complaint: Planer Setter Follow Up, Pulmonary Follow Up and VTE Follow Up
Subjective:
Feels better, no complaints of shortness of breath, chest pain, pleurisy, abdominal pain
Review of Systems
General: Other (Per HPI)
Objective Data
Data Reviewed
Vital Signs / I&O / Oxygen:
Vital Signs
Temp Pulse Resp BP Pulse Ox
97.7 F 114 19 123/77 94
08/26/24 00:42 08/26/24 07:00 08/26/24 07:00 08/26/24 07:00 08/26/24 07:00
Intake and Output
08/25/24 08/26/24 08/27/24
06:59 06:59 06:59
Intake Total 1190 / 1190
Output Total 400 / 400
Balance 790 / 790
SaO2 94
Nasal Cannula flow liters per 10
minute
Physical Exam
General: Respiratory Distress (n) and Comfortable
HEENT: Normocephalic, Anicteric and Moist Mucous Membranes
Cardiovascular: Regular Rhythm
Respiratory: Wheeze (n), Crackles, Rhonchi, Accessory Resp Muscle Use (n) and Stridor (n)
GI: Soft, Non Distended and Non Tender
Neurology: Awake, Alert and No Motor Deficits
Skin: Warm, Good Color, Cyanosis (n) and Jaundice (n)
Labs/Micro/Reports
Lab Data
08/26/24 05:57
08/26/24 05:57
Laboratory Results
08/25/24 08/25/24 08/26/24
10:43 17:42 00:35
PT 15.2 H
INR 1.17
APTT 28.2 58.9 H 196.6 H*
08/26/24
05:57
PT 14.8 H
INR 1.13
APTT
[2024-08-26] MEDS: LASIX PO (08:08)
[2024-08-26] MEDS: PACERONE PO (08:09)
[2024-08-26] MEDS: TOPROL XL PO (08:09)
[2024-08-26] MEDS: PACERONE 200 MG PO (08:25)
[2024-08-26] MEDS: TOPROL XL 25 MG PO ×2 (08:25→21:12)
[2024-08-26] MEDS: LASIX 40 MG PO (08:25)
[2024-08-26 09:00] LABS: APTT 71.4 Sec (23.4-35.0)
[2024-08-26] MEDS: HEPARIN 3600 UNITS IV (09:17)
--- NOTE | 2024-08-26 09:30 | PTCARENOTE ---
Rec'd care of patient at 0700. Patient alert and oriented. Drowsy. MAEx4. Afib on tele monitor. Rate in the 100-110's. +1 edema in b/l LE. Palpable pulses. Pulse ox 92-94% on 15L MF. Lung sounds diminished throughout with crackles 1/2 on the left.
VÁZQUEZ. States overall improvement with dyspnea. +BS. No bm. Voiding in urinal. Grecia. Peripheral INTs flushed and capped. Heparin gtt infusing as ordered. PTT 71.4. Per protocol, bolus administered and rate increased. Next PTT due at 1520.
--- NOTE | 2024-08-26 09:44 | W.PN.HOSP.TC ---
Addendum entered and electronically signed by Konstantin Daigle MD 08/26/24 16:27:
Moderate Protein Calorie Malnutrition
Original Note:
Today's Communication/Plan
-
Anticoagulation.
Assessment / Plan
Assessment / Plan
Physical exam:
General: Acutely ill
HEENT: Normocephalic, Atraumatic and Moist Mucous Membranes
Respiratory: Clear to Auscultation; Negative Wheezes, Rales or Rhonchi
Cardiac: Irregular rate and rhythm, tachycardic, and S1/S2
GI: Soft, Nontender and Nondistended
Musculoskeletal: No Clubbing, No Cyanosis and No Edema
Neuro: Awake, Alert and Oriented, no gross neurological deficit
Psych: Calm
A/P:
CT scan of the chest:
1.).There are multiple bilateral pulmonary emboli including:
-Central embolus in the right main pulmonary artery
-Embolus at the right upper lobe pulmonary artery
-Embolus in the central lingular and lower lobe branches of the left pulmonary artery
-Peripheral subsegmental left upper lobe emboli.
2). There is associated right heart strain with an RV/LV ratio of 2/1
3). There are multiple low density hepatic masses measuring up to 3 cm, new when compared with the 03/05/2024 PET scan and most consistent with hepatic metastasis. Further evaluation with PET scan may be useful.
4). Moderate perihepatic ascites, new when compared with the prior study
5). There is moderate right-sided pleural effusion with compressive atelectasis at the right lung base
6). There is small left-sided pleural effusion with compressive atelectasis at the left lung base
PLAN:
Acute hypoxic respiratory failure:
Due to PE
Oxygen supplementation
Seen and reviewed chest x-ray and chest CT scan.
Rest as below
Bilateral PE:
Continue on heparin drip
No need for catheter-based thrombolytic and risks outweigh its benefits
Pulmonary/critical care consulted-appreciated input
Off IVF
Monitor hemoglobin
Doppler shows acute right lower extremity DVT
Transfer out of ICU today
PT OT eval if okay with pulmonary critical care
Elevated LFTs:
Due to underlying malignancy
Monitor trend
Paroxysmal A-fib with rapid ventricular response:
Seen and reviewed twelve-lead EKG with A-fib in the 130s
IV Lopressor as needed
Cardiac monitoring
Beta-blockers and amiodarone. Metoprolol Succinate 25 mg p.o. twice a day and amiodarone 200 mg p.o. daily.
Chronic HFpEF:
On diuretic. Furosemide 40 mg p.o. daily
Monitor volume status closely
Pancreatic cancer:
Recent pancreatobiliary surgery
CODE STATUS:
Full code
Total time spent on today's encounter was 52 minutes which included time spent in counseling the patient/family regarding diagnosis and treatment plan as listed above, goals of care, and symptom management. Case was discussed with nursing staff,
specialists, and care coordinators/case management. All labs and imaging personally reviewed by me. Remainder the time spent in detailed review of previous records, lab data, imaging, and other medical provider documentation.
Anticipated Discharge: 24 - 48 hours
Subjective/Interval History
-
Date of Service: August 26, 2024
Patient denies chest pain or shortness of breath at rest.
Objective Data
-
Labs:
Laboratory Results
08/26/24 08/26/24 08/26/24
00:35 05:57 08:32
WBC 11.8 H
Hgb 12.2 L
Hct 38.3 L
Plt Count 473 H
PT 14.8 H
INR 1.13
APTT 196.6 H* 71.4 H
Sodium 136
Potassium 4.0
Chloride 99
Carbon Dioxide 30
BUN 30 H
Creatinine 1.0
Glucose 125 H
Calcium 8.2 L
Total Bilirubin 2.0 H
AST 88 H
ALT 76 H
Alkaline Phosphatase 284 H
Vital Signs:
Vital Signs
Temp Pulse Resp BP Pulse Ox
97.5 F 132 20 133/97 94
08/26/24 07:42 08/26/24 08:25 08/26/24 08:00 08/26/24 08:25 08/26/24 08:26
I&O
08/25/24 08/26/24 08/27/24
06:59 06:59 06:59
Intake Total 1190 / 1207 34 / 34
Output Total 400 / 400 150 / 150
Balance 790 / 807 -116 / -116
--- NOTE | 2024-08-26 11:03 | PTCARENOTE ---
Patient downgraded to tele. VSS. US tech at bedside for US of b/l LE.
--- NOTE | 2024-08-26 12:11 | PTCARENOTE ---
Patient assisted to BSC for void and BM. Encouraged to sit in chair. Patient oob in chair at 1200. Pulse ox 97%. O2 weaned as tolerated. Currently 93% on 8L MF.
--- NOTE | 2024-08-26 14:50 | TRANSFER ---
Patient transferred via wheelchair to with belongings.
--- NOTE | 2024-08-26 15:30 | CM ---
Met with patient and his daughter/Primary contact, Sahra Serna # [phone]; initial assessment completed
Pharmacy verified: [facility] @ [address] [place] [address], [place], [place]
Daughter reported that her father and stepmother live in a multilevel home; 4 steps to enter via front door; bedroom and bath on the 1st floor; bath has stall shower and a shower chair is available. Patient's in the process of treatment for
stage IV Brain CA
PLOF: daughter reported that her father needs assistance with personal care and ADLs; daughter assists with medication administration
Daughter will provide transport home
PT/OT assessments pending
Current with [facility] (PT only)
Daughter stated that patient will probably refuse to go to a SNF if recommended
Plan: discharge to home with resumption of [facility] home health services; referral sent via [employer]
--- NOTE | 2024-08-26 15:50 | PTCARENOTE ---
transferred from ICU, on 8L humidified midflow. on heparin gtt @19. Sinus tach on the monitor.PTT drawn and sent. patient oriented to his room, fall safety reinforced. assessment as documented. cont to monitor
[2024-08-26 16:07] LABS: APTT 79.4 Sec (23.4-35.0)
--- NOTE | 2024-08-26 16:22 | PN.CDI ---
CDI
- -
CDI:
Physician Documentation Request
Admit Date: 08/25/24 12:46
Dear Doctor Piol,
Please review the following and provide your response in the progress notes.
Clinical Indicators:
Pt admitted with Acute Hypoxic Respiratory Failure 2/2 Acute PE
Documented per Nutrition consult 08/25,' CBW: 190 lbs .615 oz BMI 24.4 normal range (08/25). Pts weight previous admission listed as 218 lbs 02/16 reflective of a 28 lb (13%) weight loss in 6 months, significant. With weight loss of > 10% in 6 months
and < 75% estimated needs > 1 month pt meets AND/ASPEN criteria for moderate protein calorie malnutrition....'
Based on the above information and your assessment, which of the following most accurately represents the patient's nutritional status?
Moderate Protein Calorie Malnutrition
Other (please specify)
[place] Criteria ([facility] Hospitalist 2017)
2 or more criteria must be present for either
non severe or severe malnutrition
Note that the criteria differs related to the
presence of an acute or chronic illness
Acute Illness Chronic Illness
Energy Intake Non Severe: <75% for >7 days Non Severe: <75% for >1 month
Severe: <50% for >5 days Severe: <75% for >1 month
Weight Loss Non Severe: 1-2% over 1 week Non Severe: 5% over 1 month
5% over 1 month 7.5% over 3 months
7.5% over 3 months 10% over 6 months
1 year N/A 20% over 1 year
Severe: >2% over 1 week Severe: >5% over 1 month
>5% over 1 month >7.5% over 3 months
>7.5% over 3 months >10% over 6 months
1 year N/A >20% over 1 year
Body Fat Non Severe: Mild Decrease Non Severe: Mild Loss
Severe: Moderate Decrease Severe: Severe Loss
Muscle Mass Non Severe: Mild Decrease Non Severe: Mild Loss
Severe: Moderate Decrease Severe: Severe Loss
Fluid Accumulation Non Severe: Mild Accumulation Non Severe: Mild Accumulation
Severe: Moderate to severe Severe: Moderate to severe
accumulation accumulation
Reduced Purchasing Analyst Strength Non Severe: N/A Non Severe: N/A
Severe: Measurably reduced Severe: Measurably reduced
Use of terms such as suspected, likely, concern for, or probable (associated with a specific diagnosis that is being evaluated, monitored, or treated as if it exists) are acceptable and can be coded in the inpatient setting, when documented at the
time of discharge.
Thank you,
Zenia Lee RN
CDI Specialist
[employer]
Please use your independent medical judgment in providing your response.
[2024-08-26] MEDS: ATIVAN 0.5 MG PO (21:11)
[2024-08-26] MEDS: MELATONIN 5 MG PO (21:11)
[2024-08-26] MEDS: LIPITOR 20 MG PO (21:12)
[2024-08-26 22:33] LABS: APTT 57.5 Sec (23.4-35.0)
[2024-08-26] MEDS: HEPARIN 7300 UNITS IV (22:57)
[2024-08-27] MEDS: MORPHINE SULFATE 2 MG IV (01:32)
[2024-08-27 03:29] VITALS: BP 139/99
[2024-08-27] MEDS: HEPARIN 25000 UNITS/250 ML IV (05:36)
[2024-08-27 06:00] LABS: APTT 138.8 Sec (23.4-35.0)
[2024-08-27 06:24] LABS: % Basophils 0.4 % (0-2); % Eosinophils 3.4 % (0-6); % Immature Granulocytes 0.8 % (0-0.5); % Lymphocytes 9.3 % (20.5-51.1); % Neutrophils 76.1 % (42.2-75.2); Absolute Basophils 0.1 10^3/uL (0-0.2); Absolute Eosinophils 0.4 10^3/uL (0-0.7); Absolute Immature Granulocytes 0.1 10^3/uL (0-0.05); Absolute Lymphocytes 1.1 10^3/uL (1.2-3.4); Absolute Monocytes 1.2 10^3/uL (0.1-0.6); Absolute Neutrophils 9.1 10^3/uL (1.4-6.5); Hematocrit 33.8 % (39.0-52.0); Hemoglobin 10.9 g/dL (13.0-18.0); Mean Corp Hgb Conc. 32.2 g/dL (33.0-37.0); Mean Corpuscular Hgb 27.5 pg (27.0-31.0); Mean Corpuscular Volume 85.1 fL (80.0-94.0); Mean Platelet Volume 9.5 fL (7.4-10.4); Nucleated Red Blood Cells % 0 % (-); Platelet Count 436 10^3/uL (130-400); Red Blood Cell Count 3.97 10^6/uL (4.70-6.10); Red Cell Dist. Width 20.7 % (11.5-14.5)
[2024-08-27 06:55] LABS: ALT (SGPT) 78 U/L (0-50); AST (SGOT) 92 U/L (17-59); Albumin 2.5 g/dl (3.5-5.0); Alkaline Phosphatase 282 U/L (38-126); Blood Urea Nitrogen 29 mg/dl (9-20); Calcium 7.8 mg/dl (8.4-10.2); Carbon Dioxide 27 mmol/L (22-30); Chloride 102 mmol/L (98-107); Direct Bilirubin 0.8 mg/dl (0.0-0.4); Estimated Creatinine Clearance 84 ml/min; Glucose 120 mg/dl (70-99); Potassium 3.9 mmol/L (3.5-5.1); Sodium 134 mmol/L (135-145); Total Protein 5.8 g/dl (6.3-8.2); eGFR > 60.00
[2024-08-27 07:34] VITALS: BP 137/102
--- NOTE | 2024-08-27 08:54 | W.PN.HOSP.TC ---
Today's Communication/Plan
-
Anticoagulation. Beta-blockers. Chest ultrasound in a.m.
Assessment / Plan
Assessment / Plan
Physical exam:
General: Acutely ill
HEENT: Normocephalic, Atraumatic and Moist Mucous Membranes
Respiratory: Clear to Auscultation; Negative Wheezes, Rales or Rhonchi
Cardiac: Irregular rate and rhythm, tachycardic, and S1/S2
GI: Soft, Nontender and Nondistended
Musculoskeletal: No Clubbing, No Cyanosis and No Edema
Neuro: Awake, Alert and Oriented, no gross neurological deficit
Psych: Calm
A/P:
CT scan of the chest:
1.).There are multiple bilateral pulmonary emboli including:
-Central embolus in the right main pulmonary artery
-Embolus at the right upper lobe pulmonary artery
-Embolus in the central lingular and lower lobe branches of the left pulmonary artery
-Peripheral subsegmental left upper lobe emboli.
2). There is associated right heart strain with an RV/LV ratio of 2/1
3). There are multiple low density hepatic masses measuring up to 3 cm, new when compared with the 03/05/2024 PET scan and most consistent with hepatic metastasis. Further evaluation with PET scan may be useful.
4). Moderate perihepatic ascites, new when compared with the prior study
5). There is moderate right-sided pleural effusion with compressive atelectasis at the right lung base
6). There is small left-sided pleural effusion with compressive atelectasis at the left lung base
PLAN:
Acute hypoxic respiratory failure:
Due to PE and rule out other etiology
He was initially on 14 L of oxygen--> down to 8 L of oxygen--> pulse ox 98% so we will be able to titrate down oxygen today and continue to monitor.
Plan to check ultrasound chest in a.m.
Oxygen supplementation
Seen and reviewed chest x-ray and chest CT scan.
Rest as below
Bilateral PE:
Change heparin drip to Eliquis
No need for catheter-based thrombolytic and risks outweigh its benefits
Pulmonary/critical care consulted-appreciated input
Off IVF
Monitor hemoglobin
Doppler shows acute right lower extremity DVT
Elevated LFTs:
Due to underlying malignancy
Monitor trend
Paroxysmal A-fib with rapid ventricular response:
Seen and reviewed twelve-lead EKG with A-fib in the 130s
IV Lopressor as needed
Cardiac monitoring
Beta-blockers and amiodarone. Metoprolol Succinate 25 mg p.o. twice a day and amiodarone 200 mg p.o. daily.
Chronic HFpEF:
On diuretic. Furosemide 40 mg p.o. daily
Monitor volume status closely
Pancreatic cancer:
Recent pancreatobiliary surgery
CODE STATUS:
Full code
Total time spent on today's encounter was 52 minutes which included time spent in counseling the patient/family regarding diagnosis and treatment plan as listed above, goals of care, and symptom management. Case was discussed with nursing staff,
specialists, and care coordinators/case management. All labs and imaging personally reviewed by me. Remainder the time spent in detailed review of previous records, lab data, imaging, and other medical provider documentation.
Anticipated Discharge: 24 - 48 hours
Subjective/Interval History
-
Date of Service: August 27, 2024
Patient feels better although still requiring significant amount of oxygen and tachycardic at times. No chest pain. Afebrile
Objective Data
-
Labs:
Laboratory Results
08/26/24 08/27/24
22:13 05:39
WBC 12.0 H
Hgb 10.9 L
Hct 33.8 L
Plt Count 436 H
APTT 57.5 H 138.8 H
Sodium 134 L
Potassium 3.9
Chloride 102
Carbon Dioxide 27
BUN 29 H
Creatinine 0.8
Glucose 120 H
Calcium 7.8 L
Total Bilirubin 2.0 H
AST 92 H
ALT 78 H
Alkaline Phosphatase 282 H
Vital Signs:
Vital Signs
Temp Pulse Resp BP Pulse Ox
97.8 F 127 18 137/102 96
08/27/24 07:34 08/27/24 07:34 08/27/24 07:34 08/27/24 07:34 08/27/24 07:34
I&O
08/26/24 08/27/24 08/28/24
06:59 06:59 06:59
Intake Total 1190 / 1207 626 / 626
Output Total 400 / 400 1025 / 1025
Balance 790 / 807 -399 / -399
[2024-08-27] MEDS: LASIX 40 MG PO (08:56)
[2024-08-27] MEDS: TOPROL XL 25 MG PO ×2 (08:57→20:06)
[2024-08-27] MEDS: PACERONE 200 MG PO (08:57)
--- NOTE | 2024-08-27 09:15 | W.PN.PUL3 ---
Today's Communication / Plan
-
Remains on Eliquis 10mg BID
Level of hypoxemia still seems high, weaned from 14L to 8L
Will check chest US in AM, if there is persistent moderate size and no progress on O2 wean, will eval for thora
Continue lasix
Encouraged OOB as tolerated
Assessment
-
79-year-old non-smoking male with history of hypertension, hyperlipidemia diastolic CHF, GERD, pancreatic cancer status post liver biopsy resulting in hepatic artery injury with hemoperitoneum status post hepatic artery embolization presents with
shortness of breath over 1 week progressive with severe shortness of breath this morning found to have bilateral pulmonary emboli with right ventricular strain-handle sander operator consulted for pulmonary embolism/rapid atrial fibrillation/critical care
management 08/25/2024.
Acute hypoic respiratory failure
Bilateral pulmonary emboli with right ventricular strain
Suspect provoked-recent surgery/hospitalization/underlying hypercoagulability from malignancy
PESI 171-class V-high risk
Right lower extremity DVT
Rapid atrial fibrillation
Mild leukocytosis
Hypokalemia
Hyperglycemia
Transaminitis
Hypoalbuminemia
Pleural effusion-moderate right-sided and small left sided pleural effusion
Conditions present prior to admission:
Hypertension.
Hyperlipidemia.
PAF.
Chronic diastolic CHF.
GERD.
Prostate cancer.
Leiomyosarcoma.
Iliac aneurysm.
Cardiac ablation 2012
Cardioversions x 2
AAA.
Pancreatic cancer/pancreatectomy/splenectomy-details unclear
Hepatic lesion status postbiopsy/hepatic artery injury/hemoperitoneum/hepatic artery embolization.
Plan
Hemodynamically he has improved
Continue supplemental oxygen-attempt to wean--he is on 8L weaned from 14L
Aspiration precautions
Incentive spirometry encouraged
Nebulizers if needed-currently not bronchospastic
CT chest personally reviewed-see below
Echocardiogram 08/25/2024-EF 55-60%, intermediate diastolic dysfunction due to atrial fibrillation, aortic sclerosis, mild aortic regurgitation, PA systolic estimated 39
Lower extremity ultrasound 08/26/2024-extensive right side DVT-occlusive DVT right superficial femoral and nonocclusive thrombus right common femoral and right posterior tibial vein
Strongly suspect hypercoagulable from underlying pancreatic cancer
Atrial fibrillation rate control
Full PESI summarized above-class V-high risk
Continue heparin
Patient was on Xarelto for atrial fibrillation-was off for 3 weeks prior to pulmonary embolism
He is initiated now on Eliquis 10mg BID, tolerating
Remains on high o2
CXR showing moderate effusion
Can check chest US tomorrow, if not improved can consider diag and therapeutic thora
Replace electrolytes as needed
Follow-up liver functions
DVT prophylaxis-on full anticoagulation
Early nutrition
Early mobilization
Outpatient pulmonary follow-up
Outpatient oncology/hematology [id number] reportedly has appointment at [facility] for potential initiation of pancreatic cancer therapy
Maya-Discussed in person with daughter who was present during multidisciplinary rounds 08/26/2024
Arianna-Reviewed plan with patient and friend at bedside today 08/27/24
Diagnostic data:
Chest x-ray 09/21/2020-mild interstitial edema
CT chest abdomen and pelvis 02/12/2024-mild mediastinal lymphadenopathy, gallstones, possible acute cholecystitis, mild pancreatic ductal dilation and cystic pancreatic masses, moderate diverticulosis, new cystic mass anterior left pelvis, necrotic
lymph node cannot be excluded,
CT chest 08/25/2024-bilateral pulmonary emboli including central right main, right upper lobe, central lingular and left lower lobe as well as left upper lobe subsegments, right heart strain, multiple low-density hepatic masses measuring 3 cm
consistent with hepatic metastases, moderate right sided pleural effusion
PET scan 03/05/2024-focal uptake in the body of the pancreas-SUV 6.8, no FDG uptake correlating to subcarinal lymph nodes or the left pelvic sidewall cystic lesion
Echocardiogram 07/09/2024-EF 50-55%, PA systolic 41
Reports and relevant images were personally reviewed.
Total time spent on this encounter __51__ minutes which includes review of history, physical exam, medications, laboratory data, personal review of imaging, extensive review of outpatient records, discussion with care team and respiratory therapy.
Subjective Data
-
Date of Service:
Date of Service: August 27, 2024
Chief Complaint: Pulmonary Follow Up
Subjective:
Remains on O2, this has been weaned to 8L
Still SOB
Objective Data
Data Reviewed
Vital Signs / I&O / Oxygen:
Vital Signs
Temp Pulse Resp BP Pulse Ox
97.8 F 127 18 137/102 96
08/27/24 07:34 08/27/24 08:56 08/27/24 07:34 08/27/24 08:56 08/27/24 07:34
Intake and Output
08/26/24 08/27/24 08/28/24
06:59 06:59 06:59
Intake Total 1190 / 1207 626 / 626
Output Total 400 / 400 1025 / 1025
Balance 790 / 807 -399 / -399
SaO2 96
Nasal Cannula flow liters per 8
minute
Physical Exam
General: Comfortable and Other (NAD)
HEENT: Normocephalic, Anicteric and Moist Mucous Membranes
Cardiovascular: S1-S2 and Regular Rhythm
Respiratory: Crackles and Non-Labored Respirations
GI: Soft, Non Distended and Non Tender
Neurology: Awake, Alert, Oriented and No Motor Deficits
Skin: Warm, Dry and Good Color
Labs/Micro/Reports
Lab Data
08/27/24 05:39
08/27/24 05:39
Laboratory Results
08/26/24 08/26/24 08/27/24
15:38 22:13 05:39
APTT 79.4 H 57.5 H 138.8 H
[2024-08-27] MEDS: ELIQUIS 10 MG PO ×2 (09:42→20:06)
[2024-08-27 11:07] VITALS: BP 141/89
[2024-08-27] MEDS: LOPRESSOR 5 MG IV (11:46)
--- NOTE | 2024-08-27 12:24 | PTCARENOTE ---
Pt's with HR 115-[address] Daigle made aware. Pt medicated with PRN dose of Lopressor 5 mg IV. HR 90-100 at present. Pt has history of A fib and remains in A fib. Heparin drip discontinued this am as ordered an started on Eliquis 10 mg PO.
Made patient comfortable. Cont to assess patient status.
[2024-08-27] MEDS: ROXICODONE 5 MG PO (14:02)
[2024-08-27 15:14] VITALS: BP 123/89
[2024-08-27] MEDS: TESSALON PERLES 100 MG PO ×2 (18:42→21:20)
[2024-08-27 19:43] VITALS: BP 127/92
[2024-08-27] MEDS: LIPITOR 20 MG PO (20:07)
[2024-08-27] MEDS: ATIVAN 0.5 MG PO (21:20)
[2024-08-27] MEDS: MELATONIN 5 MG PO (21:20)
[2024-08-27 23:22] VITALS: BP 136/94
[2024-08-28] VITALS (8 sets, daily range): BP systolic 122–148; BP diastolic 81–104; PULSE 113–139; O2SAT 96–97
[2024-08-28] MEDS: MORPHINE SULFATE 2 MG IV (00:30)
[2024-08-28] MEDS: ROXICODONE 5 MG PO (03:21)
[2024-08-28 07:52] LABS: % Basophils 0.3 % (0-2); % Eosinophils 3.5 % (0-6); % Immature Granulocytes 0.9 % (0-0.5); % Lymphocytes 8.6 % (20.5-51.1); % Monocytes 11.7 % (1.7-9.3); Absolute Eosinophils 0.4 10^3/uL (0-0.7); Absolute Immature Granulocytes 0.1 10^3/uL (0-0.05); Absolute Lymphocytes 0.9 10^3/uL (1.2-3.4); Absolute Monocytes 1.3 10^3/uL (0.1-0.6); Absolute Neutrophils 8.2 10^3/uL (1.4-6.5); Hemoglobin 11.3 g/dL (13.0-18.0); Mean Corp Hgb Conc. 32.3 g/dL (33.0-37.0); Mean Corpuscular Hgb 27.6 pg (27.0-31.0); Mean Corpuscular Volume 85.4 fL (80.0-94.0); Mean Platelet Volume 9.3 fL (7.4-10.4); Nucleated Red Blood Cells % 0.2 % (-); Platelet Count 423 10^3/uL (130-400); Red Cell Dist. Width 20.3 % (11.5-14.5); White Blood Cell Count 10.9 10^3/uL (4.8-10.8)
[2024-08-28 08:12] LABS: Blood Urea Nitrogen 27 mg/dl (9-20); Carbon Dioxide 28 mmol/L (22-30); Chloride 100 mmol/L (98-107); Estimated Creatinine Clearance 84 ml/min; Glucose 112 mg/dl (70-99); Potassium 3.8 mmol/L (3.5-5.1); Sodium 133 mmol/L (135-145); eGFR > 60.00
[2024-08-28] MEDS: TOPROL XL 25 MG PO ×2 (08:45→20:41)
[2024-08-28] MEDS: PACERONE 200 MG PO (08:45)
[2024-08-28] MEDS: TESSALON PERLES 100 MG PO ×3 (08:45→21:07)
[2024-08-28] MEDS: LASIX 40 MG PO (08:45)
[2024-08-28] MEDS: ELIQUIS 10 MG PO ×2 (08:45→20:40)
--- NOTE | 2024-08-28 09:16 | W.PN.HOSP.TC ---
Addendum entered and electronically signed by Konstantin Daigle MD 08/28/24 15:28:
Updated daughter over the phone; her name is Sahra Serna and phone number [phone]. Will also keep original doses of beta-blockers for now and reevaluate.
Addendum entered and electronically signed by Konstantin Daigle MD 08/28/24 11:45:
It appears the pulmonary wants to hold on thoracentesis. Will cancel IR consult for now.
Original Note:
Today's Communication/Plan
-
Anticoagulation. Increased beta-blockers. Possible right thoracentesis
Assessment / Plan
Assessment / Plan
Physical exam:
General: Acutely ill
HEENT: Normocephalic, Atraumatic and Moist Mucous Membranes
Respiratory: Clear to Auscultation; Negative Wheezes, Rales or Rhonchi
Cardiac: Irregular rate and rhythm, tachycardic, and S1/S2
GI: Soft, Nontender and Nondistended
Musculoskeletal: No Clubbing, No Cyanosis and No Edema
Neuro: Awake, Alert and Oriented, no gross neurological deficit
Psych: Calm
A/P:
CT scan of the chest:
1.).There are multiple bilateral pulmonary emboli including:
-Central embolus in the right main pulmonary artery
-Embolus at the right upper lobe pulmonary artery
-Embolus in the central lingular and lower lobe branches of the left pulmonary artery
-Peripheral subsegmental left upper lobe emboli.
2). There is associated right heart strain with an RV/LV ratio of 2/1
3). There are multiple low density hepatic masses measuring up to 3 cm, new when compared with the 03/05/2024 PET scan and most consistent with hepatic metastasis. Further evaluation with PET scan may be useful.
4). Moderate perihepatic ascites, new when compared with the prior study
5). There is moderate right-sided pleural effusion with compressive atelectasis at the right lung base
6). There is small left-sided pleural effusion with compressive atelectasis at the left lung base
PLAN:
Acute hypoxic respiratory failure:
Due to PE and rule out other etiology
He was initially on 14 L of oxygen--> down to 8 L of oxygen--> pulse ox 98% so we will be able to titrate down oxygen today and continue to monitor. Today down to 6 L of oxygen and pulse ox around 96%. Will titrate as able.
Ultrasound of the chest shows right pleural effusion. Discussed with IR for possible right thoracentesis. Will follow-up further pulmonary input.
Oxygen supplementation
Seen and reviewed chest x-ray and chest CT scan.
Rest as below
Bilateral PE:
Changed heparin drip to Eliquis
No need for catheter-based thrombolytic and risks outweigh its benefits
Pulmonary/critical care consulted-appreciated input
Off IVF
Monitor hemoglobin
Doppler shows acute right lower extremity DVT
Elevated LFTs:
Due to underlying malignancy
Monitor trend
Paroxysmal A-fib with rapid ventricular response:
Seen and reviewed twelve-lead EKG with A-fib in the 130s
IV Lopressor as needed
Cardiac monitoring
Beta-blockers and amiodarone. Metoprolol Succinate 25 mg p.o. twice a day and will increase to 50 mg twice a day and continue amiodarone 200 mg p.o. daily.
Chronic HFpEF:
On diuretic. Furosemide 40 mg p.o. daily
Monitor volume status closely
Pancreatic cancer:
Recent pancreatobiliary surgery
CODE STATUS:
Full code
Total time spent on today's encounter was 52 minutes which included time spent in counseling the patient/family regarding diagnosis and treatment plan as listed above, goals of care, and symptom management. Case was discussed with nursing staff,
specialists, and care coordinators/case management. All labs and imaging personally reviewed by me. Remainder the time spent in detailed review of previous records, lab data, imaging, and other medical provider documentation.
Anticipated Discharge: 24 - 48 hours
Subjective/Interval History
-
Date of Service: August 28, 2024
Patient feels overall better. Still requiring oxygen and a bit hypertensive and tachycardic. Afebrile
Objective Data
-
Labs:
Laboratory Results
08/28/24
07:10
WBC 10.9 H
Hgb 11.3 L
Hct 35.0 L
Plt Count 423 H
Sodium 133 L
Potassium 3.8
Chloride 100
Carbon Dioxide 28
BUN 27 H
Creatinine 0.8
Glucose 112 H
Calcium 8.0 L
Vital Signs:
Vital Signs
Temp Pulse Resp BP Pulse Ox
97.7 F 111 16 143/104 95
08/28/24 07:25 08/28/24 07:25 08/28/24 07:25 08/28/24 07:25 08/28/24 07:25
I&O
08/27/24 08/28/24 08/29/24
06:59 06:59 06:59
Intake Total 626 / 626 1200 / 1200
Output Total 1025 / 1025 1150 / 1150
Balance -399 / -399 50 / 50
--- NOTE | 2024-08-28 09:21 | W.PN.PUL3 ---
Today's Communication / Plan
-
Weaned from 15L to 6L in the past 24 hours, continue to wean further
Chest US showing mild-mod effusion, can treat conservatively for now/patient prefers to avoid procedures
Continue diuresis as tolerated
Encouraged OOB/PT/ambulation
If continues to improve in next 24 hours can likely hold off on procedures
Reviewed with patient and at bedside
Assessment
-
79-year-old non-smoking male with history of hypertension, hyperlipidemia diastolic CHF, GERD, pancreatic cancer status post liver biopsy resulting in hepatic artery injury with hemoperitoneum status post hepatic artery embolization presents with
shortness of breath over 1 week progressive with severe shortness of breath this morning found to have bilateral pulmonary emboli with right ventricular strain-jamb cutter consulted for pulmonary embolism/rapid atrial fibrillation/critical care
management 08/25/2024.
Acute hypoxic respiratory failure
Bilateral pulmonary emboli with right ventricular strain
Suspect provoked-recent surgery/hospitalization/underlying hypercoagulability from malignancy
PESI 171-class V-high risk
Right lower extremity DVT
Rapid atrial fibrillation
Mild leukocytosis
Hypokalemia
Hyperglycemia
Transaminitis
Hypoalbuminemia
Pleural effusion-moderate right-sided and small left sided pleural effusion
Conditions present prior to admission:
Hypertension.
Hyperlipidemia.
PAF.
Chronic diastolic CHF.
GERD.
Prostate cancer.
Leiomyosarcoma.
Iliac aneurysm.
Cardiac ablation 2012
Cardioversions x 2
AAA.
Pancreatic cancer/pancreatectomy/splenectomy-details unclear
Hepatic lesion status postbiopsy/hepatic artery injury/hemoperitoneum/hepatic artery embolization.
Plan
Hemodynamically he has improved
Continue supplemental oxygen-attempt to wean--he is on 6L weaned from 14L
Aspiration precautions
Incentive spirometry encouraged
Nebulizers if needed-currently not bronchospastic
Home O2 eval eventually
CT chest personally reviewed-see below
Echocardiogram 08/25/2024-EF 55-60%, intermediate diastolic dysfunction due to atrial fibrillation, aortic sclerosis, mild aortic regurgitation, PA systolic estimated 39
Lower extremity ultrasound 08/26/2024-extensive right side DVT-occlusive DVT right superficial femoral and nonocclusive thrombus right common femoral and right posterior tibial vein
Strongly suspect hypercoagulable from underlying pancreatic cancer
Atrial fibrillation rate control
Full PESI summarized above-class V-high risk
Continue heparin
Patient was on Xarelto for atrial fibrillation-was off for 3 weeks prior to pulmonary embolism
He is initiated now on Eliquis 10mg BID, tolerating
Remains on high o2
CXR showing moderate effusion
Chest US showing mild-mod findings, can consider thora if not improving but he prefer to treat conservatively
If next 24 hours shows continued improvement in o2 and SOB, can avoid procedures
Recheck CXR in next 24-48 hours
Replace electrolytes as needed
Follow-up liver functions
DVT prophylaxis-on full anticoagulation
Early nutrition
Early mobilization
Outpatient pulmonary follow-up
Outpatient oncology/hematology [id number] reportedly has appointment at [facility] for potential initiation of pancreatic cancer therapy
Maya-Discussed in person with daughter who was present during multidisciplinary rounds 08/26/2024
Arianna-Reviewed plan with patient and friend at bedside today 08/27/24
Diagnostic data:
Chest x-ray 09/21/2020-mild interstitial edema
CT chest abdomen and pelvis 02/12/2024-mild mediastinal lymphadenopathy, gallstones, possible acute cholecystitis, mild pancreatic ductal dilation and cystic pancreatic masses, moderate diverticulosis, new cystic mass anterior left pelvis, necrotic
lymph node cannot be excluded,
CT chest 08/25/2024-bilateral pulmonary emboli including central right main, right upper lobe, central lingular and left lower lobe as well as left upper lobe subsegments, right heart strain, multiple low-density hepatic masses measuring 3 cm
consistent with hepatic metastases, moderate right sided pleural effusion
PET scan 03/05/2024-focal uptake in the body of the pancreas-SUV 6.8, no FDG uptake correlating to subcarinal lymph nodes or the left pelvic sidewall cystic lesion
Echocardiogram 07/09/2024-EF 50-55%, PA systolic 41
Reports and relevant images were personally reviewed.
Total time spent on this encounter __51__ minutes which includes review of history, physical exam, medications, laboratory data, personal review of imaging, extensive review of outpatient records, discussion with care team and respiratory therapy.
Subjective Data
-
Date of Service:
Date of Service: August 28, 2024
Chief Complaint: Pulmonary Follow Up
Subjective:
No new complaints, feels his SOB has been improving
Weaned to 6L from 15L
Objective Data
Data Reviewed
Vital Signs / I&O / Oxygen:
Vital Signs
Temp Pulse Resp BP Pulse Ox
97.7 F 111 16 143/104 95
08/28/24 07:25 08/28/24 07:25 08/28/24 07:25 08/28/24 07:25 08/28/24 07:25
Intake and Output
08/27/24 08/28/24 08/29/24
06:59 06:59 06:59
Intake Total 626 / 626 1200 / 1200
Output Total 1025 / 1025 1150 / 1150
Balance -399 / -399 50 / 50
SaO2 95
Nasal Cannula flow liters per 6
minute
Physical Exam
General: Comfortable and Other (NAD)
HEENT: Normocephalic, Anicteric and Moist Mucous Membranes
Cardiovascular: S1-S2 and Regular Rhythm
Respiratory: Crackles and Non-Labored Respirations
GI: Soft, Non Distended and Non Tender
Neurology: Awake, Alert, Oriented and No Motor Deficits
Skin: Warm, Dry and Good Color
Labs/Micro/Reports
Lab Data
08/28/24 07:10
08/28/24 07:10
--- NOTE | 2024-08-28 11:13 | CM ---
Reviewed the chart notes and spoke with the patient at the bedside. Patient on supplemental O2 @ 6L/min mid-flow. CM continues to be available to patient/family and is monitoring medical plan for needs at discharge.
Plan: Discharge to home with resumption of [facility]. [facility].
[2024-08-28] MEDS: LIPITOR 20 MG PO (21:07)
[2024-08-28] MEDS: MELATONIN 5 MG PO (21:26)
[2024-08-28] MEDS: ATIVAN 0.5 MG PO (21:26)
[2024-08-29] VITALS (7 sets, daily range): BP systolic 124–140; BP diastolic 81–96; O2SAT 93–97; BMI 25.0
[2024-08-29] MEDS: MORPHINE SULFATE 2 MG IV (00:50)
[2024-08-29 08:10] LABS: Hematocrit 34.4 % (39.0-52.0); Hemoglobin 11.1 g/dL (13.0-18.0); Mean Corp Hgb Conc. 32.3 g/dL (33.0-37.0); Mean Corpuscular Hgb 27.5 pg (27.0-31.0); Mean Corpuscular Volume 85.4 fL (80.0-94.0); Mean Platelet Volume 9.4 fL (7.4-10.4); Platelet Count 417 10^3/uL (130-400); Red Blood Cell Count 4.03 10^6/uL (4.70-6.10); Red Cell Dist. Width 20.1 % (11.5-14.5); White Blood Cell Count 11.7 10^3/uL (4.8-10.8)
[2024-08-29 08:34] LABS: ALT (SGPT) 83 U/L (0-50); AST (SGOT) 84 U/L (17-59); Albumin 2.5 g/dl (3.5-5.0); Alkaline Phosphatase 269 U/L (38-126); Blood Urea Nitrogen 25 mg/dl (9-20); Calcium 7.9 mg/dl (8.4-10.2); Carbon Dioxide 27 mmol/L (22-30); Chloride 100 mmol/L (98-107); Direct Bilirubin 0.6 mg/dl (0.0-0.4); Estimated Creatinine Clearance 84 ml/min; Glucose 105 mg/dl (70-99); Potassium 4.1 mmol/L (3.5-5.1); Sodium 132 mmol/L (135-145); Total Bilirubin 1.8 mg/dl (0.2-1.3); Total Protein 5.9 g/dl (6.3-8.2); eGFR > 60.00
[2024-08-29] MEDS: ELIQUIS 10 MG PO ×2 (08:50→20:07)
[2024-08-29] MEDS: LASIX 40 MG PO (08:50)
[2024-08-29] MEDS: TOPROL XL 25 MG PO ×2 (08:51→20:07)
[2024-08-29] MEDS: FLUSH (NSS) 2 FLUSH IV (08:51)
[2024-08-29] MEDS: PACERONE 200 MG PO (08:51)
[2024-08-29] MEDS: TESSALON PERLES 100 MG PO ×3 (08:51→21:48)
--- NOTE | 2024-08-29 09:30 | PTCARENOTE ---
Pt reported to RN that in the middle of the night last night, he woke up with right sided jaw pain, nonradiating, could not describe and then said it went away. Pt stated that he didn't tell anyone of the pain since it went away fairly quickly.
Encouraged pt to make sure if it happens again to make staff aware. Dr. Daigle made aware of event, will monitor.
--- NOTE | 2024-08-29 09:46 | W.PN.HOSP.TC ---
Today's Communication/Plan
-
Eliquis. Oxygen supplementation.
Assessment / Plan
Assessment / Plan
Physical exam:
General: Acutely ill
HEENT: Normocephalic, Atraumatic and Moist Mucous Membranes
Respiratory: Clear to Auscultation; Negative Wheezes, Rales or Rhonchi
Cardiac: Irregular rate and rhythm, tachycardic, and S1/S2
GI: Soft, Nontender and Nondistended
Musculoskeletal: No Clubbing, No Cyanosis and No Edema
Neuro: Awake, Alert and Oriented, no gross neurological deficit
Psych: Calm
A/P:
CT scan of the chest:
1.).There are multiple bilateral pulmonary emboli including:
-Central embolus in the right main pulmonary artery
-Embolus at the right upper lobe pulmonary artery
-Embolus in the central lingular and lower lobe branches of the left pulmonary artery
-Peripheral subsegmental left upper lobe emboli.
2). There is associated right heart strain with an RV/LV ratio of 2/1
3). There are multiple low density hepatic masses measuring up to 3 cm, new when compared with the 03/05/2024 PET scan and most consistent with hepatic metastasis. Further evaluation with PET scan may be useful.
4). Moderate perihepatic ascites, new when compared with the prior study
5). There is moderate right-sided pleural effusion with compressive atelectasis at the right lung base
6). There is small left-sided pleural effusion with compressive atelectasis at the left lung base
PLAN:
Acute hypoxic respiratory failure:
Due to PE and rule out other etiology
He was initially on 14 L of oxygen--> down to 8 L of oxygen--> pulse ox 98% so we will be able to titrate down oxygen today and continue to monitor. Today down to 6 L of oxygen and pulse ox around 97%. Will titrate as able.
Oxygen supplementation
Seen and reviewed chest x-ray and chest CT scan.
Rest as below
Bilateral PE:
Changed heparin drip to Eliquis
No need for catheter-based thrombolytic and risks outweigh its benefits
Pulmonary/critical care consulted-appreciated input
Off IVF
Monitor hemoglobin
Doppler shows acute right lower extremity DVT
Right pleural effusion:
Ultrasound of the chest shows right pleural effusion.
Discussed with IR yesterday for possible right thoracentesis but afterwards pulmonary felt that no need for thoracentesis at the moment.
Upon further discussion with patient he is concerned about last time he had a procedure had complicated issues with hemorrhage.
Would probably repeat a chest x-ray on Saturday
Follow-up further pulmonary recommendations
Elevated LFTs:
Due to underlying malignancy
Monitor trend
Paroxysmal A-fib with rapid ventricular response:
Seen and reviewed twelve-lead EKG with A-fib in the 130s
IV Lopressor as needed
Cardiac monitoring
Beta-blockers and amiodarone. Metoprolol Succinate 25 mg p.o. twice a day (did not increase his beta-blockers doses and doing better) and continue amiodarone 200 mg p.o. daily.
Chronic HFpEF:
On diuretic. Furosemide 40 mg p.o. daily
Monitor volume status closely
Pancreatic cancer:
Recent pancreatobiliary surgery
CODE STATUS:
Full code
Total time spent on today's encounter was 52 minutes which included time spent in counseling the patient/family regarding diagnosis and treatment plan as listed above, goals of care, and symptom management. Case was discussed with nursing staff,
specialists, and care coordinators/case management. All labs and imaging personally reviewed by me. Remainder the time spent in detailed review of previous records, lab data, imaging, and other medical provider documentation.
Anticipated Discharge: > 48 hours
Subjective/Interval History
-
Date of Service: August 29, 2024
Patient feels better overall. Still on 6 L of oxygen. Afebrile
Objective Data
-
Labs:
Laboratory Results
08/29/24
07:01
WBC 11.7 H
Hgb 11.1 L
Hct 34.4 L
Plt Count 417 H
Sodium 132 L
Potassium 4.1
Chloride 100
Carbon Dioxide 27
BUN 25 H
Creatinine 0.8
Glucose 105 H
Calcium 7.9 L
Total Bilirubin 1.8 H
AST 84 H
ALT 83 H
Alkaline Phosphatase 269 H
Vital Signs:
Vital Signs
Temp Pulse Resp BP Pulse Ox
97.8 F 108 18 140/90 93
08/29/24 07:35 08/29/24 08:50 08/29/24 07:35 08/29/24 08:50 08/29/24 07:35
I&O
08/28/24 08/29/24 08/30/24
06:59 06:59 06:59
Intake Total 1200 / 1200 662 / 662
Output Total 1150 / 1150 1250 / 1250
Balance 50 / 50 -588 / -588
--- NOTE | 2024-08-29 12:55 | W.PN.PUL.V3 ---
Today's Communication / Plan
-
Wean oxygen
Increase activity
Follow chest x-ray
Consider thoracentesis
Assessment
-
79-year-old non-smoking male with history of hypertension, hyperlipidemia diastolic CHF, GERD, pancreatic cancer status post liver biopsy resulting in hepatic artery injury with hemoperitoneum status post hepatic artery embolization presents with
shortness of breath over 1 week progressive with severe shortness of breath this morning found to have bilateral pulmonary emboli with right ventricular strain-director [employer] consulted for pulmonary embolism/rapid atrial fibrillation/critical care
management 08/25/2024.
Acute hypoxic respiratory failure
Bilateral pulmonary emboli with right ventricular strain
Suspect provoked-recent surgery/hospitalization/underlying hypercoagulability from malignancy
PESI 171-class V-high risk
Right lower extremity DVT
Rapid atrial fibrillation
Mild leukocytosis
Hypokalemia
Hyperglycemia
Transaminitis
Hypoalbuminemia
Pleural effusion-moderate right-sided and small left sided pleural effusion
Conditions present prior to admission:
Hypertension.
Hyperlipidemia.
PAF.
Chronic diastolic CHF.
GERD.
Prostate cancer.
Leiomyosarcoma.
Iliac aneurysm.
Cardiac ablation 2012
Cardioversions x 2
AAA.
Pancreatic cancer/pancreatectomy/splenectomy-details unclear
Hepatic lesion status postbiopsy/hepatic artery injury/hemoperitoneum/hepatic artery embolization.
Plan
Hemodynamically stable
Continue supplemental oxygen-attempt to wean--he is on 6L mid flow weaned from 14L
Aspiration precautions
Incentive spirometry encouraged
Nebulizers if needed-currently not bronchospastic
Reviewed with patient that he might need temporary oxygen at home
CT chest personally reviewed-see below
Echocardiogram 08/25/2024-EF 55-60%, intermediate diastolic dysfunction due to atrial fibrillation, aortic sclerosis, mild aortic regurgitation, PA systolic estimated 39
Lower extremity ultrasound 08/26/2024-extensive right side DVT-occlusive DVT right superficial femoral and nonocclusive thrombus right common femoral and right posterior tibial vein
Strongly suspect hypercoagulable from underlying pancreatic cancer
Atrial fibrillation rate control
Full PESI summarized above-class V-high risk
Heparin changed to Eliquis
Note the patient was on Xarelto for atrial fibrillation-was off for 3 weeks prior to pulmonary embolism
CXR showing moderate effusion
Chest US showing mild-mod findings, can consider thora if not improving but he prefer to treat conservatively
Repeat chest x-ray in the next 24-48 hours and consider thoracentesis if not resolving
Replace electrolytes as needed
Follow-up liver functions
DVT prophylaxis-on full anticoagulation
Early nutrition
Early mobilization
Outpatient pulmonary follow-up
Outpatient oncology/hematology [id number] reportedly has appointment at [facility] for potential initiation of pancreatic cancer therapy
Maya-Discussed in person with daughter who was present during multidisciplinary rounds 08/26/2024
Arianna-Reviewed plan with patient and friend at bedside today 08/27/24
Diagnostic data:
Chest x-ray 09/21/2020-mild interstitial edema
CT chest abdomen and pelvis 02/12/2024-mild mediastinal lymphadenopathy, gallstones, possible acute cholecystitis, mild pancreatic ductal dilation and cystic pancreatic masses, moderate diverticulosis, new cystic mass anterior left pelvis, necrotic
lymph node cannot be excluded,
CT chest 08/25/2024-bilateral pulmonary emboli including central right main, right upper lobe, central lingular and left lower lobe as well as left upper lobe subsegments, right heart strain, multiple low-density hepatic masses measuring 3 cm
consistent with hepatic metastases, moderate right sided pleural effusion
PET scan 03/05/2024-focal uptake in the body of the pancreas-SUV 6.8, no FDG uptake correlating to subcarinal lymph nodes or the left pelvic sidewall cystic lesion
Echocardiogram 07/09/2024-EF 50-55%, PA systolic 41
Subjective Data
-
Date of Service:
Date of Service: August 29, 2024
Chief Complaint: Pulmonary Follow Up and Dyspnea Follow Up
Subjective:
No complaints of shortness of breath, chest pain, pleurisy, productive cough, or abdominal pain
Review of Systems
General: Other (Per HPI)
Objective Data
Data Reviewed
Vital Signs / I&O:
Vital Signs
Temp Pulse Resp BP Pulse Ox
97.9 F 98 18 124/84 97
08/29/24 11:26 08/29/24 11:26 08/29/24 11:26 08/29/24 11:26 08/29/24 11:26
Intake and Output
08/28/24 08/29/24 08/30/24
06:59 06:59 06:59
Intake Total 1200 / 1200 662 / 662
Output Total 1150 / 1150 1250 / 1250
Balance 50 / 50 -588 / -588
SaO2: 97
Nasal Cannula flow liters per minute: 6
Physical Exam
General: Respiratory Distress (n), Comfortable and Other (NAD)
HEENT: Normocephalic, Anicteric and Moist Mucous Membranes
Cardiovascular: Regular Rhythm
Respiratory: Crackles and Non-Labored Respirations
GI: Soft, Non Distended and Non Tender
Neurology: Awake, Alert and No Motor Deficits
Skin: Warm, Good Color and Cyanosis (n)
Labs/Micro/Reports
Lab Data
08/29/24 07:01
08/29/24 07:01
[2024-08-29] MEDS: MIRALAX 17 GRAMS PO (20:20)
[2024-08-29] MEDS: LIPITOR 20 MG PO (21:48)
[2024-08-29] MEDS: ATIVAN 0.5 MG PO (21:51)
[2024-08-29] MEDS: MELATONIN 5 MG PO (21:51)
[2024-08-30] VITALS (9 sets, daily range): BP systolic 119–134; BP diastolic 76–95; PULSE 114; O2SAT 89–95; BMI 25.0
[2024-08-30] MEDS: MORPHINE SULFATE 2 MG IV (03:37)
[2024-08-30 06:56] LABS: Hematocrit 34.5 % (39.0-52.0); Mean Corp Hgb Conc. 31.9 g/dL (33.0-37.0); Mean Corpuscular Hgb 27.4 pg (27.0-31.0); Mean Corpuscular Volume 85.8 fL (80.0-94.0); Mean Platelet Volume 9.3 fL (7.4-10.4); Platelet Count 398 10^3/uL (130-400); Red Blood Cell Count 4.02 10^6/uL (4.70-6.10); White Blood Cell Count 10.8 10^3/uL (4.8-10.8)
[2024-08-30 07:40] LABS: Blood Urea Nitrogen 24 mg/dl (9-20); Carbon Dioxide 30 mmol/L (22-30); Chloride 99 mmol/L (98-107); Estimated Creatinine Clearance 84 ml/min; Glucose 110 mg/dl (70-99); Sodium 132 mmol/L (135-145); eGFR > 60.00
--- NOTE | 2024-08-30 08:47 | W.PN.HOSP.TC ---
Today's Communication/Plan
-
Anticoagulation. Oral diuretics. Oxygen supplementation.
Assessment / Plan
Assessment / Plan
Physical exam:
General: No acute distress
HEENT: Normocephalic, Atraumatic and Moist Mucous Membranes
Respiratory: Clear to Auscultation; Negative Wheezes, Rales or Rhonchi
Cardiac: Irregular rate and rhythm, and S1/S2
GI: Soft, Nontender and Nondistended
Musculoskeletal: No Clubbing, No Cyanosis and No Edema
Neuro: Awake, Alert and Oriented, no gross neurological deficit
Psych: Calm
A/P:
CT scan of the chest:
1.).There are multiple bilateral pulmonary emboli including:
-Central embolus in the right main pulmonary artery
-Embolus at the right upper lobe pulmonary artery
-Embolus in the central lingular and lower lobe branches of the left pulmonary artery
-Peripheral subsegmental left upper lobe emboli.
2). There is associated right heart strain with an RV/LV ratio of 2/1
3). There are multiple low density hepatic masses measuring up to 3 cm, new when compared with the 03/05/2024 PET scan and most consistent with hepatic metastasis. Further evaluation with PET scan may be useful.
4). Moderate perihepatic ascites, new when compared with the prior study
5). There is moderate right-sided pleural effusion with compressive atelectasis at the right lung base
6). There is small left-sided pleural effusion with compressive atelectasis at the left lung base
PLAN:
Acute hypoxic respiratory failure:
Improving
Due to PE
He was initially on 14 L of oxygen--> down to 4 L of oxygen today
Wean oxygen as able
Repeat chest x-ray in a.m.
Seen and reviewed chest x-ray and chest CT scan.
Rest as below
Bilateral PE with right ventricular strain and acute right lower extremity DVT:
Improving
Continue Eliquis
Off IVF
Monitor hemoglobin. Today hemoglobin 11
Right pleural effusion:
Ultrasound of the chest shows right pleural effusion.
Discussed with IR for possible right thoracentesis but afterwards pulmonary felt that no need for thoracentesis at the moment. If he continues to improve agree might not need thoracentesis. Also patient is concerned about last time he had a
procedure he had complicated issues with hemorrhage.
Will repeat a chest x-ray tomorrow
Follow-up further pulmonary recommendations
Elevated LFTs:
Due to underlying malignancy
Monitor trend
Paroxysmal A-fib with rapid ventricular response:
Seen and reviewed twelve-lead EKG with A-fib in the 130s upon admission.
IV Lopressor as needed
Cardiac monitoring
Beta-blockers and amiodarone. Metoprolol Succinate 25 mg p.o. twice a day and continue amiodarone 200 mg p.o. daily.
Chronic HFpEF:
On diuretic. Furosemide 40 mg p.o. daily
Monitor volume status closely
Pancreatic cancer:
Recent pancreatobiliary surgery
CODE STATUS:
Full code
Anticipated Discharge: 24 - 48 hours
Subjective/Interval History
-
Date of Service: August 30, 2024
Patient doing well overall. Less oxygen requirements. No chest pain.
Objective Data
-
Labs:
Laboratory Results
08/30/24
06:39
WBC 10.8
Hgb 11.0 L
Hct 34.5 L
Plt Count 398
Sodium 132 L
Potassium 4.0
Chloride 99
Carbon Dioxide 30
BUN 24 H
Creatinine 0.8
Glucose 110 H
Calcium 8.0 L
Vital Signs:
Vital Signs
Temp Pulse Resp BP Pulse Ox
98.5 F 116 18 134/95 96
08/30/24 03:30 08/30/24 03:30 08/30/24 03:30 02/16/25 03:30 08/30/24 03:30
I&O
08/29/24 08/30/24 08/31/24
06:59 06:59 06:59
Intake Total 662 / 662 960 / 960
Output Total 1250 / 1250 1050 / 1050
Balance -588 / -588 -90 / -90
[2024-08-30] MEDS: ELIQUIS 10 MG PO ×2 (09:58→20:06)
[2024-08-30] MEDS: LASIX 40 MG PO (09:58)
[2024-08-30] MEDS: PACERONE 200 MG PO (09:58)
[2024-08-30] MEDS: TESSALON PERLES 100 MG PO ×3 (09:58→20:07)
[2024-08-30] MEDS: TOPROL XL 25 MG PO ×2 (09:59→20:06)
[2024-08-30] MEDS: FLUSH (NSS) 1 FLUSH IV (09:59)
--- NOTE | 2024-08-30 12:33 | PTCARENOTE ---
Pt ambulated within unit 150 ft with 4L O2 via midflow nasal cannula. SPO2 dropped to 89% for a few seconds with ambulation towards the end of his walk. Hovered around 91% on the 4L O2. Slightly VÁZQUEZ. Once at rest after ambulation, SPO2 95% on 4L O2
via midflow.
--- NOTE | 2024-08-30 14:51 | W.PN.PUL.V3 ---
Today's Communication / Plan
-
Wean oxygen
Assess discharge supplemental oxygen needs
Physical therapy
Recheck chest x-ray
Assessment
-
79-year-old non-smoking male with history of hypertension, hyperlipidemia diastolic CHF, GERD, pancreatic cancer status post liver biopsy resulting in hepatic artery injury with hemoperitoneum status post hepatic artery embolization presents with
shortness of breath over 1 week progressive with severe shortness of breath this morning found to have bilateral pulmonary emboli with right ventricular strain-community health specialist consulted for pulmonary embolism/rapid atrial fibrillation/critical care
management 08/25/2024.
Acute hypoxic respiratory failure
Bilateral pulmonary emboli with right ventricular strain
Suspect provoked-recent surgery/hospitalization/underlying hypercoagulability from malignancy
PESI 171-class V-high risk
Right lower extremity DVT
Rapid atrial fibrillation
Mild leukocytosis
Hypokalemia
Hyperglycemia
Transaminitis
Hypoalbuminemia
Pleural effusion-moderate right-sided and small left sided pleural effusion
Conditions present prior to admission:
Hypertension.
Hyperlipidemia.
PAF.
Chronic diastolic CHF.
GERD.
Prostate cancer.
Leiomyosarcoma.
Iliac aneurysm.
Cardiac ablation 2012
Cardioversions x 2
AAA.
Pancreatic cancer/pancreatectomy/splenectomy-details unclear
Hepatic lesion status postbiopsy/hepatic artery injury/hemoperitoneum/hepatic artery embolization.
Plan
Slowly improving from a respiratory and hemodynamic perspective
Continue supplemental oxygen-attempt to wean--he is on 4 L nasal cannula-weaned from 14L
Will need to assess discharge supplemental oxygen needs
Aspiration precautions continue
Incentive spirometry encouraged
Nebulizers if needed-currently not bronchospastic
Reviewed with patient that he might need temporary oxygen at home
Chest x-ray 08/31/2024-pending
CT chest personally reviewed-see below
Echocardiogram 08/25/2024-EF 55-60%, intermediate diastolic dysfunction due to atrial fibrillation, aortic sclerosis, mild aortic regurgitation, PA systolic estimated 39
Lower extremity ultrasound 08/26/2024-extensive right side DVT-occlusive DVT right superficial femoral and nonocclusive thrombus right common femoral and right posterior tibial vein
Strongly suspect hypercoagulable from underlying pancreatic cancer
Atrial fibrillation rate control
Full PESI summarized above-class V-high risk
Heparin changed to Eliquis-tolerating well
Hemoglobin stable
Note the patient was on Xarelto for atrial fibrillation-was off for 3 weeks prior to pulmonary embolism
CXR showing moderate effusion
Chest US showing mild-mod findings, can consider thora if not improving but he prefer to treat conservatively
Repeat chest x-ray in the next 24-48 hours and consider thoracentesis if not resolving
Replace electrolytes as needed
Follow-up liver functions
DVT prophylaxis-on full anticoagulation
Early nutrition
Early mobilization
Outpatient pulmonary follow-up
Outpatient oncology/hematology [id number] reportedly has appointment at [facility] for potential initiation of pancreatic cancer therapy-and needed to reschedule for a couple weeks after discharge
Turnerly-Discussed in person with daughter who was present during multidisciplinary rounds 08/26/2024
Arianna-Reviewed plan with patient and friend at bedside today 08/27/24
Diagnostic data:
Chest x-ray 09/21/2020-mild interstitial edema
CT chest abdomen and pelvis 02/12/2024-mild mediastinal lymphadenopathy, gallstones, possible acute cholecystitis, mild pancreatic ductal dilation and cystic pancreatic masses, moderate diverticulosis, new cystic mass anterior left pelvis, necrotic
lymph node cannot be excluded,
CT chest 08/25/2024-bilateral pulmonary emboli including central right main, right upper lobe, central lingular and left lower lobe as well as left upper lobe subsegments, right heart strain, multiple low-density hepatic masses measuring 3 cm
consistent with hepatic metastases, moderate right sided pleural effusion
PET scan 03/05/2024-focal uptake in the body of the pancreas-SUV 6.8, no FDG uptake correlating to subcarinal lymph nodes or the left pelvic sidewall cystic lesion
Echocardiogram 07/09/2024-EF 50-55%, PA systolic 41
Subjective Data
-
Date of Service:
Date of Service: August 30, 2024
Chief Complaint: Pulmonary Follow Up and Dyspnea Follow Up
Subjective:
No complaints of shortness of breath, chest pain, productive cough, out of bed yesterday,
Review of Systems
General: Other (Per HPI)
Objective Data
Data Reviewed
Vital Signs / I&O:
Vital Signs
Temp Pulse Resp BP Pulse Ox
97.5 F 79 16 126/90 98
08/30/24 11:30 08/30/24 11:30 08/30/24 11:30 08/30/24 11:30 08/30/24 11:30
Intake and Output
08/29/24 08/30/24 08/31/24
06:59 06:59 06:59
Intake Total 662 / 662 960 / 960
Output Total 1250 / 1250 1050 / 1050
Balance -588 / -588 -90 / -90
SaO2: 98
Nasal Cannula flow liters per minute: 4
Physical Exam
General: Respiratory Distress (n), Comfortable and Other (NAD)
HEENT: Normocephalic, Anicteric and Moist Mucous Membranes
Cardiovascular: Regular Rhythm
Respiratory: Crackles and Non-Labored Respirations
GI: Soft, Non Distended and Non Tender
Neurology: Awake, Alert and No Motor Deficits
Skin: Warm, Good Color and Cyanosis (n)
Labs/Micro/Reports
Lab Data
08/30/24 06:39
08/30/24 06:39
[2024-08-30] MEDS: ROBITUSSIN AC 10 ML PO (20:05)
[2024-08-30] MEDS: LIPITOR 20 MG PO (20:06)
[2024-08-30] MEDS: MELATONIN 5 MG PO (22:46)
[2024-08-30] MEDS: ATIVAN 0.5 MG PO (22:46)
[2024-08-31] MEDS: MORPHINE SULFATE 2 MG IV (01:24)
[2024-08-31 03:55] VITALS: BP 130/92
[2024-08-31 06:00] VITALS: BMI 24.8
--- NOTE | 2024-08-31 06:47 | W.PN.HOSP.TC ---
Today's Communication/Plan
-
lidocaine patch right lower abd pain
Wean O2 supplementation as tolerated
cont Eliquis
PT/OT
Home Oxygen assessment in AM
Likely discharge tomorrow home with home services (+/- home oxygen) if remains stable/continues to improve
Assessment / Plan
Assessment / Plan
Physical exam:
General: No acute distress
HEENT: Normocephalic, Atraumatic and Moist Mucous Membranes
Respiratory: Clear to Auscultation; Negative Wheezes, Rales or Rhonchi
Cardiac: Irregular rate and rhythm, and S1/S2
GI: Soft, Nontender and Nondistended, notes tenderness right sided abdomen from site of past liver biopsy complicated with hemorrhage per patient
Musculoskeletal: No Clubbing, No Cyanosis and No Edema
Neuro: Awake, Alert and Oriented, no gross neurological deficit
Psych: Calm
A/P: 79M hx Pancreatic Ca HFpEF afib here with PE/DVT
CT scan of the chest:
1.).There are multiple bilateral pulmonary emboli including:
-Central embolus in the right main pulmonary artery
-Embolus at the right upper lobe pulmonary artery
-Embolus in the central lingular and lower lobe branches of the left pulmonary artery
-Peripheral subsegmental left upper lobe emboli.
2). There is associated right heart strain with an RV/LV ratio of 2/1
3). There are multiple low density hepatic masses measuring up to 3 cm, new when compared with the 03/05/2024 PET scan and most consistent with hepatic metastasis. Further evaluation with PET scan may be useful.
4). Moderate perihepatic ascites, new when compared with the prior study
5). There is moderate right-sided pleural effusion with compressive atelectasis at the right lung base
6). There is small left-sided pleural effusion with compressive atelectasis at the left lung base
PLAN:
Acute hypoxic respiratory failure:
Improving
Due to PE
CT chest appreciated (as above) PE w/ right heart strain, hepatic metastasis, moderate perihepatic ascites, moderate right sided pleural effusion
Initially on 14 L of oxygen since improved to 4L
Wean oxygen as able
08/31/24 CXR appreciated moderate right pleural effusion, stable compared to prior imaging
cont antitussive medication regimen Tessalon ruthiee, Robitussin DM
Bilateral PE with right ventricular strain and acute right lower extremity DVT:
Improving
Continue Eliquis
Off IVF
H&H stable
Right pleural effusion:
Ultrasound of the chest shows right pleural effusion.
Repeat CXR notes stable effusion as above
Raul damico appreciated No need for thoracentesis at this time (patient also prefers to defer procedure at this time given complications with hemorrhage he experienced following Liver Biopsy in past)
Elevated LFTs:
Due to underlying malignancy
stable
Paroxysmal A-fib with rapid ventricular response:
IV Lopressor as needed
Cardiac monitoring
Beta-blockers and amiodarone. Metoprolol Succinate 25 mg p.o. twice a day and continue amiodarone 200 mg p.o. daily.
Chronic HFpEF:
cont home Furosemide 40 mg p.o. daily
Pancreatic cancer:
Recent pancreatobiliary surgery
Right Lower Abd tenderness/pain
pt reports from site of past liver biopsy complicated with hemorrhage
trial lidocaine patch
CODE STATUS:
Full code
Discussed with patient and patient's Yuko
I spent a total of 40 minutes with the patient or on the floor. More than 50% of this time involved counseling and coordination of care.
Anticipated Discharge: Within 24 hours
Subjective/Interval History
-
Date of Service: August 31, 2024
No acute distress resting comfortably in bed. Remains on nasal cannula supplementation 4L. Non-labored respiration. Reports coughing, relatively controlled with current antitussive medication regimen.
Objective Data
-
Labs:
Laboratory Results
08/31/24
06:00
WBC Pending
Hgb Pending
Hct Pending
Plt Count Pending
Sodium Pending
Potassium Pending
Chloride Pending
Carbon Dioxide Pending
BUN Pending
Creatinine Pending
Glucose Pending
Calcium Pending
Total Bilirubin Pending
AST Pending
ALT Pending
Alkaline Phosphatase Pending
Vital Signs:
Vital Signs
Temp Pulse Resp BP Pulse Ox
97.5 F 101 20 130/92 96
08/31/24 03:55 08/31/24 03:55 08/31/24 03:55 08/31/24 03:55 08/31/24 03:55
I&O
08/29/24 08/30/24 08/31/24
06:59 06:59 06:59
Intake Total 662 / 662 960 / 960 720 / 720
Output Total 1250 / 1250 1050 / 1050 375 / 375
Balance -588 / -588 -90 / -90 345 / 345
[2024-08-31 07:03] LABS: % Basophils 0.6 % (0-2); % Eosinophils 4.8 % (0-6); % Lymphocytes 7.6 % (20.5-51.1); % Monocytes 13.4 % (1.7-9.3); % Neutrophils 72.6 % (42.2-75.2); Absolute Basophils 0.1 10^3/uL (0-0.2); Absolute Eosinophils 0.5 10^3/uL (0-0.7); Absolute Immature Granulocytes 0.1 10^3/uL (0-0.05); Absolute Lymphocytes 0.8 10^3/uL (1.2-3.4); Absolute Monocytes 1.4 10^3/uL (0.1-0.6); Absolute Neutrophils 7.6 10^3/uL (1.4-6.5); Hematocrit 35.5 % (39.0-52.0); Hemoglobin 11.4 g/dL (13.0-18.0); Mean Corp Hgb Conc. 32.1 g/dL (33.0-37.0); Mean Corpuscular Hgb 27.4 pg (27.0-31.0); Mean Corpuscular Volume 85.3 fL (80.0-94.0); Mean Platelet Volume 9.1 fL (7.4-10.4); Nucleated Red Blood Cells % 0 % (-); Platelet Count 383 10^3/uL (130-400); Red Blood Cell Count 4.16 10^6/uL (4.70-6.10); White Blood Cell Count 10.5 10^3/uL (4.8-10.8)
[2024-08-31 07:29] LABS: ALT (SGPT) 81 U/L (0-50); AST (SGOT) 93 U/L (17-59); Albumin 2.5 g/dl (3.5-5.0); Alkaline Phosphatase 263 U/L (38-126); Blood Urea Nitrogen 22 mg/dl (9-20); Carbon Dioxide 29 mmol/L (22-30); Chloride 100 mmol/L (98-107); Estimated Creatinine Clearance 96 ml/min; Glucose 105 mg/dl (70-99); Potassium 4.2 mmol/L (3.5-5.1); Sodium 132 mmol/L (135-145); Total Bilirubin 2.1 mg/dl (0.2-1.3); Total Protein 6.1 g/dl (6.3-8.2); eGFR > 60.00
[2024-08-31 08:05] VITALS: BP 146/99
[2024-08-31] MEDS: TOPROL XL 25 MG PO ×2 (08:27→20:18)
[2024-08-31] MEDS: LASIX 40 MG PO (08:27)
[2024-08-31] MEDS: PACERONE 200 MG PO (08:28)
[2024-08-31] MEDS: TESSALON PERLES 100 MG PO ×3 (08:28→21:57)
[2024-08-31] MEDS: ELIQUIS 10 MG PO ×2 (08:28→20:18)
--- NOTE | 2024-08-31 10:01 | W.PN.PUL.V3 ---
Today's Communication / Plan
-
Increase activity.
Wean FiO2-currently on 4 L
Assessment discharge. Supplemental oxygen needs
Chest x-ray without change in moderate pleural effusion-fairly asymptomatic-hold off on thoracentesis-patient would prefer
Continue anticoagulation.
Physical therapy.
Outpatient eventual pulmonary follow-up.
Outpatient oncological follow-up at [facility]..
Pulmonary. We'll sign off-. Please call with questions
Assessment
-
79-year-old non-smoking male with history of hypertension, hyperlipidemia diastolic CHF, GERD, pancreatic cancer status post liver biopsy resulting in hepatic artery injury with hemoperitoneum status post hepatic artery embolization presents with
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
management 08/25/2024.
Acute hypoxic respiratory failure
Bilateral pulmonary emboli with right ventricular strain
Suspect provoked-recent surgery/hospitalization/underlying hypercoagulability from malignancy
PESI 171-class V-high risk
Right lower extremity DVT
Rapid atrial fibrillation
Mild leukocytosis
Hypokalemia
Hyperglycemia
Transaminitis
Hypoalbuminemia
Pleural effusion-moderate right-sided and small left sided pleural effusion
Conditions present prior to admission:
Hypertension.
Hyperlipidemia.
PAF.
Chronic diastolic CHF.
GERD.
Prostate cancer.
Leiomyosarcoma.
Iliac aneurysm.
Cardiac ablation 2012
Cardioversions x 2
AAA.
Pancreatic cancer/pancreatectomy/splenectomy-details unclear
Hepatic lesion status postbiopsy/hepatic artery injury/hemoperitoneum/hepatic artery embolization.
Plan
He continues to improve from a pulmonary perspective
Continue supplemental oxygen-attempt to wean--he is on 4 L mid flow nasal cannula-weaned from 14L
Will need to assess discharge supplemental oxygen needs
Aspiration precautions continue
Incentive spirometry encouraged
Nebulizers if needed-currently not bronchospastic
Reviewed with patient that he might need temporary oxygen at home
Chest x-ray 08/31/2024-, moderate right pleural effusion without change
CT chest personally reviewed-see below
Echocardiogram 08/25/2024-EF 55-60%, intermediate diastolic dysfunction due to atrial fibrillation, aortic sclerosis, mild aortic regurgitation, PA systolic estimated 39
Lower extremity ultrasound 08/26/2024-extensive right side DVT-occlusive DVT right superficial femoral and nonocclusive thrombus right common femoral and right posterior tibial vein
Strongly suspect hypercoagulable from underlying pancreatic cancer
Atrial fibrillation rate control
Full PESI summarized above-class V-high risk
Heparin changed to Eliquis-tolerating well
Hemoglobin stable-11.4
Note the patient was on Xarelto for atrial fibrillation-was off for 3 weeks prior to pulmonary embolism
CXR showing moderate effusion
Chest US showing mild-mod findings, can consider thoracentesis if not improving but patient would prefer to treat conservatively
Repeat chest x-ray without change and moderate pleural effusion
Replace electrolytes as needed
Follow-up liver functions-remain mildly elevated-likely from metastatic cancer
DVT prophylaxis-on full anticoagulation
Nutrition
physical therapy
Outpatient pulmonary follow-up
Outpatient oncology/hematology [id number] reportedly has appointment at [facility] for potential initiation of pancreatic cancer therapy-and needed to reschedule for a couple weeks after discharge.
Patient stable from a pulmonary perspective-pulmonary. We'll sign off- Please call with questions
Maya-Discussed in person with daughter who was present during multidisciplinary rounds 08/26/2024
Arianna-Reviewed plan with patient and friend at bedside today 08/27/24
Diagnostic data:
Chest x-ray 09/21/2020-mild interstitial edema
CT chest abdomen and pelvis 02/12/2024-mild mediastinal lymphadenopathy, gallstones, possible acute cholecystitis, mild pancreatic ductal dilation and cystic pancreatic masses, moderate diverticulosis, new cystic mass anterior left pelvis, necrotic
lymph node cannot be excluded,
CT chest 08/25/2024-bilateral pulmonary emboli including central right main, right upper lobe, central lingular and left lower lobe as well as left upper lobe subsegments, right heart strain, multiple low-density hepatic masses measuring 3 cm
consistent with hepatic metastases, moderate right sided pleural effusion
PET scan 03/05/2024-focal uptake in the body of the pancreas-SUV 6.8, no FDG uptake correlating to subcarinal lymph nodes or the left pelvic sidewall cystic lesion
Echocardiogram 07/09/2024-EF 50-55%, PA systolic 41
Subjective Data
-
Date of Service:
Date of Service: August 31, 2024
Chief Complaint: Pulmonary Follow Up and Dyspnea Follow Up
Subjective:
Denies any worsening shortness breath, no chest pain, pleurisy, abdominal pain
Review of Systems
General: Other (per HPI)
Objective Data
Data Reviewed
Vital Signs / I&O:
Vital Signs
Temp Pulse Resp BP Pulse Ox
97.6 F 115 20 146/99 97
08/31/24 08:05 08/31/24 08:05 08/31/24 08:05 08/31/24 08:05 08/31/24 08:05
Intake and Output
08/30/24 08/31/24 09/01/24
06:59 06:59 06:59
Intake Total 960 / 960 720 / 720 480 / 480
Output Total 1050 / 1050 375 / 375 1150 / 1150
Balance -90 / -90 345 / 345 -670 / -670
SaO2: 97
Nasal Cannula flow liters per minute: 4
Physical Exam
General: Respiratory Distress (n), Comfortable and Other (NAD)
HEENT: Normocephalic, Anicteric and Moist Mucous Membranes
Cardiovascular: Regular Rhythm
Respiratory: Crackles and Non-Labored Respirations
GI: Soft, Non Distended and Non Tender
Neurology: Awake, Alert and No Motor Deficits
Skin: Warm, Good Color and Cyanosis (n)
Labs/Micro/Reports
Lab Data
08/31/24 06:52
08/31/24 06:52
[2024-08-31] MEDS: ROBITUSSIN AC 10 ML PO (11:28)
--- NOTE | 2024-08-31 11:48 | CM ---
Patient seen bedside.
PT recommending home with Home care.
Patient agreeable to VN, referral via [facility].
Patient continues on 4L oxygen, will need home oxygen assessment prior to d/c.
Plan:home woth HVN, watch for home oxygen needs.
--- NOTE | 2024-08-31 11:54 | CM ---
Addendum entered by Juju Doe 09/02/24 09:03:
Late note from 09/01/2024: Pt ready for discharge. He is currently on room air; no need for home O2.
Zonia referral updated in [facility].
IMM provided to patient and copy given to pt prior to discharge.
Original Note:
Patient seen bedside.
PT recommending home with Home care.
Patient known to Zonia, referral via [facility].
Patient continues on 4L oxygen, will need home oxygen assessment prior to d/c.
Plan:home with [facility], watch for home oxygen needs.
Zonia Parra
[2024-08-31 11:55] VITALS: BP 120/90
[2024-08-31 16:01] VITALS: BP 134/74
[2024-08-31] MEDS: LIDOCAINE 4% PATCH 1 PATCH TOPICAL (18:15)
[2024-08-31 19:37] VITALS: BP 146/93
[2024-08-31] MEDS: LIPITOR 20 MG PO (21:57)
[2024-08-31] MEDS: MELATONIN 5 MG PO (22:51)
[2024-08-31] MEDS: ATIVAN 0.5 MG PO (22:51)
[2024-08-31 23:36] VITALS: BP 138/92
[2024-09-01] MEDS: MORPHINE SULFATE 2 MG IV (03:01)
[2024-09-01 03:45] VITALS: BP 129/86
[2024-09-01 05:46] VITALS: BMI 24.6
[2024-09-01 07:25] VITALS: BP 140/99
--- NOTE | 2024-09-01 08:05 | W.PN.HOSP.TC ---
Today's Communication/Plan
-
Discharge
Assessment / Plan
Assessment / Plan
Physical exam:
General: No acute distress
HEENT: Normocephalic, Atraumatic and Moist Mucous Membranes
Respiratory: Clear to Auscultation; Negative Wheezes, Rales or Rhonchi
Cardiac: Irregular rate and rhythm, and S1/S2
GI: Soft, Nontender and Nondistended, notes tenderness right sided abdomen from site of past liver biopsy complicated with hemorrhage per patient
Musculoskeletal: No Clubbing, No Cyanosis and No Edema
Neuro: Awake, Alert and Oriented
Psych: Calm
A/P: 79M hx Pancreatic Ca HFpEF afib here with PE/DVT
CT scan of the chest:
1.).There are multiple bilateral pulmonary emboli including:
-Central embolus in the right main pulmonary artery
-Embolus at the right upper lobe pulmonary artery
-Embolus in the central lingular and lower lobe branches of the left pulmonary artery
-Peripheral subsegmental left upper lobe emboli.
2). There is associated right heart strain with an RV/LV ratio of 2/1
3). There are multiple low density hepatic masses measuring up to 3 cm, new when compared with the 03/05/2024 PET scan and most consistent with hepatic metastasis. Further evaluation with PET scan may be useful.
4). Moderate perihepatic ascites, new when compared with the prior study
5). There is moderate right-sided pleural effusion with compressive atelectasis at the right lung base
6). There is small left-sided pleural effusion with compressive atelectasis at the left lung base
PLAN:
Acute hypoxic respiratory failure 2/[address] appreciated (as above) PE w/ right heart strain, hepatic metastasis, moderate perihepatic ascites, moderate right sided pleural effusion
Initially on 14 L of oxygen since weaned off oxygen supplementation stable respiratory status on room air. PT home oxygen assessment appreciated no need for home oxygen.
08/31/24 CXR appreciated moderate right pleural effusion, stable compared to prior imaging
cont antitussive medication regimen Radha Gabrielsin DM
Bilateral PE with right ventricular strain and acute right lower extremity DVT:
Improving
Continue Eliquis
Off IVF
H&H stable
Right pleural effusion:
Ultrasound of the chest shows right pleural effusion.
Repeat CXR notes stable effusion as above
Pulonofre damico appreciated No need for thoracentesis at this time (patient also prefers to defer procedure at this time given complications with hemorrhage he experienced following Liver Biopsy in past)
Elevated LFTs:
Due to underlying malignancy
stable
Paroxysmal A-fib with rapid ventricular response:
IV Lopressor as needed
Cardiac monitoring
Beta-blockers and amiodarone. Metoprolol Succinate 25 mg p.o. twice a day and continue amiodarone 200 mg p.o. daily.
Chronic HFpEF:
cont home Furosemide 40 mg p.o. daily
Pancreatic cancer:
Recent pancreatobiliary surgery
Right Lower Abd tenderness/pain
pt reports from site of past liver biopsy complicated with hemorrhage
improved with lidocaine patch
PT/OT margaux appreciated home with home services
CODE STATUS: Full code
Medically stable for discharge home with home services and outpatient follow up recommendations.
Discussed with patient and patient's daughter Sahra
Total Time Preparing Discharge __40 minutes including examination of the patient, summary of the hospital stay, instructions for continuing care to all relevant caregivers; and preparation of discharge records, prescriptions, and referral
forms if necessary.
Anticipated Discharge: Today
Subjective/Interval History
-
Date of Service: September 01, 2024
Overall reports feeling well, coughing persists but manageable with current antitussive regimen. Weaned off oxygen supplementation, stable respiratory status on room air. PT home oxygen assessment appreciated saturation remained stable 95% with
ambulation on room air 120 ft. Denies new acute issues. Eager to go home
Objective Data
-
Vital Signs:
Vital Signs
Temp Pulse Resp BP Pulse Ox
97.5 F 118 18 129/86 96
09/01/24 03:45 09/01/24 03:45 09/01/24 03:45 09/01/24 03:45 09/01/24 03:45
I&O
08/31/24 09/01/24 09/02/24
06:59 06:59 06:59
Intake Total 720 / 720 1200 / 1200
Output Total 375 / 375 2150 / 2150
Balance 345 / 345 -950 / -950
[2024-09-01] MEDS: ELIQUIS 10 MG PO (08:45)
[2024-09-01] MEDS: PACERONE 200 MG PO (08:45)
[2024-09-01] MEDS: LIDOCAINE 4% PATCH 1 PATCH TOPICAL (08:45)
[2024-09-01] MEDS: TESSALON PERLES 100 MG PO ×3 (08:45→15:00)
[2024-09-01] MEDS: TOPROL XL 25 MG PO (08:45)
[2024-09-01] MEDS: LASIX 40 MG PO (08:45)
[2024-09-01] MEDS: ROBITUSSIN AC 10 ML PO (12:18)
[2024-09-01 12:40] VITALS: BP 134/90
[2024-09-01 12:56] VITALS: BP 137/98; PULSE 118; O2SAT 93
--- NOTE | 2024-09-01 15:04 | W.DCSUMMARY ---
Discharge Summary
Discharge Data
Date of Admission: 08/25/24
Date of Discharge: 09/01/24
-
Pending Results: No
Discharge Plan
-
Patient Disposition: Home with Home Care
Discharge Diagnosis/Procedures: Acute Hypoxic Respiratory Failure Due to Pulmonary Embolism
Acute Right Lower Extremity Deep Vein Thrombosis
Right Pleural Effusion
Mild Transaminitis likely secondary to malignancy
Paroxysmal A-fib with rapid ventricular response
Chronic Heart Failure preserved Ejection Fraction
Pancreatic cancer, Recent Pancreatobiliary surgery
Condition: Fair
Diet: Low Cholesterol
Activity: As tolerated and With Walker
Driving Restrictions: Not until seen by your Dr
Bathing Restrictions: None
Blood Work: Repeat CBC and CMP with primary care provider in 1 week of discharge
Others Tests: repeat Chest X-ray with primary care provider in 1 month of discharge
Other Services: PT and OT
Activity Restrictions/Additional Instructions:
Follow up with primary care provider in 1 week of discharge, your oncologist in 2 weeks of discharge, and Pulmonology in 2-4 weeks of discharge.
Eliquis has been prescribed for treatment of Pulmonary Embolism and Deep Vein Thrombosis. Eliquis is replacing your previous home medication Xarelto (do not continue to take Xarelto while on Eliquis). 09/02/24 is your last day for loading dose 10
mg Eliquis twice a day. Afterwards, reduce Eliquis to 5 mg twice a day from then on.
As needed lidocaine patch has been prescribed for right lower abdomen pain (from past liver biopsy).
Guaifenesin has been prescribed as needed for cough (this is available over the counter).
Please take medications as prescribed/recommended and follow up with primary care provider and/or other healthcare provider involved in your care for refills and/or further adjustment to your medication regimen as necessary.
Referrals:
Wade Trejo MD [Active] - in two to four weeks
Jose C Antoine DO [Family Provider] - in one week
Prescriptions:
New
Eliquis 5 mg Tablet
10 mg PO BID Qty: 66 0RF
Rx Instructions:
09/02/24 last day for 10 mg twice a day.
Afterwards, reduce to 5 mg twice a day from then on.
lidocaine 4 % Adhesive Patch,Medicated
1 patch topical DAILY PRN (Reason: Right lower abdomen pain) Qty: 6 0RF
guaifenesin 100 mg/5 mL liquid
200 mg PO Q4H PRN (Reason: Cough) Qty: 1000 0RF
Continued
atorvastatin 20 MG tablet
20 mg PO HS
multivitamin with folic acid [Tab-A-Karen] 1 TABLET tablet
1 tab PO HS
melatonin 5 mg Tablet
5 mg PO HSPRN PRN (Reason: insomnia)
furosemide 40 mg Tablet
40 mg PO DAILY Qty: 30 11RF
metoprolol succinate 25 mg Tablet Extended Release 24 Hr
25 mg PO BID Qty: 60 11RF
amiodarone 200 mg tablet
200 mg PO DAILY Qty: 30 11RF
ondansetron HCl 8 mg tablet
8 mg PO Q8HPRN PRN (Reason: nausea/vomiting)
prochlorperazine maleate 10 mg tablet
10 mg PO Q6HPRN PRN (Reason: nausea/vomiting)
lorazepam 0.5 mg tablet
0.5 mg PO HSPRN PRN (Reason: sleep)
temazepam 15 mg capsule
15 mg PO HSPRN PRN (Reason: insomnia)
benzonatate 100 mg capsule
100 mg PO TIDPRN PRN (Reason: cough)
oxycodone 5 mg tablet
5 mg PO Q6HPRN PRN (Reason: moderate to severe pain)
Discontinued
Xarelto 20 MG tablet
20 mg PO HS
Patient Comments:
08/25/2024: Pt was told by provider to stop for procedure, but has not gotten blood work to go back on yet.
Discharge Orders:
Discharge Patient (As Directed); Ordered 09/01/24
Ordered By: Pranay Gamez
Discharge Date and Time
Print Language: KISWAHILI
[2024-09-01 15:25] VITALS: BP 141/87
== END 2024-09-01 18:45 | disposition home health service (06) | DRG 175 ==
LOC: 4 EAST ACU 12:46
PROVIDERS: Physician Assistant; ADMITTING PHYSICIAN Hospitalist; ATTENDING PHYSICIAN Internal Medicine; CONSULT PHYSICIAN Internal Medicine Critical Care Medicine; EMERGENCY PHYSICIAN Emergency Medicine; FAMILY PHYSICIAN Internal Medicine
DX: I26.99 Other pulmonary embolism without acute cor pulmonale (principal); J96.01 Acute respiratory failure with hypoxia; I50.32 Chronic diastolic (congestive) heart failure; R18.8 Other ascites; J98.11 Atelectasis; C25.9 Malignant neoplasm of pancreas, unspecified; C78.7 Secondary malignant neoplasm of liver and intrahepatic bile duct; I82.411 Acute embolism and thrombosis of right femoral vein; E44.0 Moderate protein-calorie malnutrition; I48.0 Paroxysmal atrial fibrillation; I11.0 Hypertensive heart disease with heart failure; E78.00 Pure hypercholesterolemia, unspecified; E87.6 Hypokalemia; I08.1 Rheumatic disorders of both mitral and tricuspid valves; R73.9 Hyperglycemia, unspecified; E88.09 Other disorders of plasma-protein metabolism, not elsewhere classified; R74.01 Elevation of levels of liver transaminase levels; K21.9 Gastro-esophageal reflux disease without esophagitis; I72.3 Aneurysm of iliac artery; I71.40 Abdominal aortic aneurysm, without rupture, unspecified; Z87.01 Personal history of pneumonia (recurrent); Z90.81 Acquired absence of spleen; Z85.07 Personal history of malignant neoplasm of pancreas; Z79.01 Long term (current) use of anticoagulants; Z68.24 Body mass index [BMI] 24.0-24.9, adult
CPT/HCPCS: 71045; 71046; 71275; 76604; 80048; 80053; 82248; 82805; 83735; 83880; 84484; 85025; 85027; 85610; 85730; 93005; 93306; 93970; 97116; 97163; 97166; 99291; Q9967

== ENCOUNTER 2024-09-21 16:09 | Inpatient (IN) | payer OTHER, SELFPAY ==
[2024-09-21] VITALS (18 sets, daily range): BP systolic 81–112; BP diastolic 54–87; BMI 26.9
[2024-09-21 11:35] LABS: Hematocrit 30.6 % (39.0-52.0); Hemoglobin 10.1 g/dL (13.0-18.0); Mean Corpuscular Hgb 27.7 pg (27.0-31.0); Mean Corpuscular Volume 83.8 fL (80.0-94.0); Mean Platelet Volume 10.1 fL (7.4-10.4); Platelet Count 212 10^3/uL (130-400); Red Blood Cell Count 3.65 10^6/uL (4.70-6.10); Red Cell Dist. Width 18.7 % (11.5-14.5); White Blood Cell Count 16.2 10^3/uL (4.8-10.8)
[2024-09-21 11:46] LABS: ALT (SGPT) 102 U/L (0-50); AST (SGOT) 150 U/L (17-59); Albumin 2.2 g/dl (3.5-5.0); Alkaline Phosphatase 307 U/L (38-126); Blood Urea Nitrogen 79 mg/dl (9-20); Calcium 8.1 mg/dl (8.4-10.2); Carbon Dioxide 28 mmol/L (22-30); Chloride 93 mmol/L (98-107); Estimated Creatinine Clearance 20 ml/min; Glucose 90 mg/dl (70-99); Lipase 36 U/L (23-300); Potassium 4.7 mmol/L (3.5-5.1); Sodium 124 mmol/L (135-145); Total Bilirubin 3.6 mg/dl (0.2-1.3); Total Protein 5.4 g/dl (6.3-8.2); eGFR 17.41
--- NOTE | 2024-09-21 12:17 | ED.GENMED ---
History of Present Illness
General
Chief Complaint: Abdominal Pain
Source: spouse
Exam Limitations: none
Time Seen by Provider: 09/21/24 11:13
Nursing documentation reviewed up to this point in time: agreed with
History of Present Illness
History of Present Illness:
Patient is an 79-year-old male with diagnosis of pancreatic cancer April 2024. He recently started chemo 1 week ago at [place] reports patient has had several complications. He had a tissue biopsy at [facility] July 2023, major
vessel was nicked and he required several blood transfusions. He was on blood thinners at that time which was stopped. He has since been placed back on Eliquis after recently get diagnosed with bilateral PE here August,.
reports patient has gotten progressively weaker over the past several days and is barely able to drink. He was able to stand several days ago to use the commode but now is not able to do so. Patient presents sleepy attempted to answer
questions oriented to person place confused to month he is oriented to year. He complains of being thirsty no other complaints at this time.'
Past History
Past History
ED Past Medical History: Arrthythmia (Paroxysmal atrial fibrillation), GERD, HTN, Hypercholesterolemia and Other (incidental iliac aneurysm, AAA)
ED Past Surgical History: Cardiac (Ablation, Cardioversion X2) and Other (abdominal sarcoma, splenectomy)
Social History
Tobacco: Non-smoker
Alcohol: None
Drug: None
Personal:
Living: with family
Employment: Retired
Family History
Family History: Hypertension; Negative Early CAD or Sudden
Review of Systems
Review of Systems
Allergies reviewed?: Yes
All Other Systems: ROS reviewed and negative except as documented in HPI and ROS
Constitutional: Reports fatigue; Denies fever
Respiratory: Reports no symptoms
Cardiac: Reports no symptoms
ABD/GI: Reports abdominal pain and other (decrease appetite ); Denies nausea, vomiting or diarrhea
: Reports no symptoms
Musculoskeletal: Reports no symptoms
Skin: Reports no symptoms
Neurological: Reports no symptoms
Psychiatric: Reports no symptoms
Phy Exam
General Physical Exam
General Presentation: no apparent distress
General age: appears stated age
General Skin: warm and dry
General Habitus: failure to thrive
General Mental: alert
General Hydration: dry mucous membranes
Cardiovascular Exam
Cardiovascular Exam: tachycardia
Pulmonary Exam
Pulmonary Exam: lungs clear and no respiratory distress
Gastrointestinal Exam
Gastrointestinal Exam: other (non specific tenderness )
Neurological Exam
Neurological Exam: alert
Musculoskeletal Exam
Musculoskeletal Exam: full ROM
Skin Exam
Skin Exam: normal color and warm/dry
Psychiatric Exam
Psychiatric Exam: normal mood/affect
Course
Orders/Labs/Results
Orders:
Orders
09/21/24 11:12
Complete Blood Count/With Diff Urgent
Comprehensive Metabolic Panel Urgent
Lipase Urgent
09/21/24 12:31
0.9% Sodium Chloride 1000 ml [Nss] 1,000 ml IV BOLUS
09/21/24 12:37
CT Abd/pel Without Iv Or Oral Urgent
Comment:
Reason For Exam: pancreatic cancer c/o of pain acute kidney injury
09/21/24 12:40
Case Management Consult ONCE
Case Management Consult: Discharge Planning
Requested By:: PT/FAMILY
Comment: pancreatic cancer pt. will need placement. also to discuss end of life care
Abnormal Lab Results
09/21/24
11:12
WBC 16.2 H 10^3/uL
(4.8-10.8)
RBC 3.65 L 10^6/uL
(4.70-6.10)
Hgb 10.1 L g/dL
(13.0-18.0)
Hct 30.6 L %
(39.0-52.0)
RDW 18.7 H %
(11.5-14.5)
Abs Immat Gran (auto) 0.5 H 10^3/uL
(0-0.05)
Absolute Neuts (auto) 14.8 H 10^3/uL
(1.4-6.5)
Absolute Lymphs (auto) 0.3 L 10^3/uL
(1.2-3.4)
Immature Gran % 3.3 H %
(0-0.5)
Neutrophils % 91.5 H %
(42.2-75.2)
Lymphocytes % 1.9 L %
(20.5-51.1)
Sodium 124 L mmol/L
(135-145)
Chloride 93 L mmol/L
(98-107)
BUN 79 H mg/dl
(9-20)
Creatinine 3.4 H mg/dL
(0.7-1.3)
Calcium 8.1 L mg/dl
(8.4-10.2)
Total Bilirubin 3.6 H mg/dl
(0.2-1.3)
AST 150 H U/L
(17-59)
ALT 102 H U/L
(0-50)
Alkaline Phosphatase 307 H U/L
(38-126)
Total Protein 5.4 L g/dl
(6.3-8.2)
Albumin 2.2 L g/dl
(3.5-5.0)
09/21/24 11:12
09/21/24 11:12
Vital Signs
Initial and Last Documented VS:
Initial Vital Signs
Temp Pulse BP Pulse Ox
97.5 F 104 102/87 94
09/21/24 11:04 09/21/24 11:04 09/21/24 11:04 09/21/24 11:04
Last Documented Vital Signs
Temp Pulse Resp BP Pulse Ox
97.5 F 105 19 81/57 94
09/21/24 11:04 09/21/24 14:15 09/21/24 14:15 09/21/24 14:00 09/21/24 14:15
Funeral Home Associate consulted with Physician
Funeral Home Associate consulted with physician?: Yes
Name of Physician Consulted: Obey
MDM/Problems Addressed
MDM/Problems Addressed:
As documented patient is an 79-year-old male with pancreatic cancer with metastasis presents with sudden weakness. reports patient is very weak over the past several days barely drinking. Patient appears very weak frail very dry on exam his
BUN is elevated at 71 creatinine 3.4 with a normal potassium. White count mildly elevated no fever hemoglobin stable at 10.1. Patient has had abdominal pain related to his illness and is on chronic pain meds. He has had recent injury to his liver
area in April and had a major blood vessel injured when they did a biopsy however has since been cleared to go back on blood thinner since recent PE in August. Patient typically does have abdominal pain was medicated for pain here CAT scan was
done which shows likely hematoma between lobe of the liver and stomach however limited because of lack of contrast contrast was held due to KEYUR. does request case management/hospice consult if this is an acute cause of patient's sudden
weakness they we will hold off they will like to see how patient does over the next several days. Case discussed with the ER physician will admit to the hospital service
Chronic conditions affecting care:
pancreatic cancer
*Radiology
Radiology exam reviewed: radiology read reviewed
*Pulse Oximetry
Patient hypoxic: no
*Critical Care Note
Total Time (30-74mins, 75-104mins- exclusive of procedures): Not Applicable
ED Attending Note
-
Portions of this chart may have been created with voice recognition software.� Occasional wrong word or��sound alike� substitutions may have occurred due to the inherent limitations of voice recognition software.
Discharge Plan
Departure
Patient Disposition: Admit
Date of Disposition: 09/21/24
Time of Disposition: 14:29
Admit to: Med/Surg
Admit to doctor: hospitalist
Presentation/result/management discussed w/ accepting MD/DO: Hospitalist
Patient with high blood pressure during this ER visit?: No
Condition: Fair
Covid-19: Not Applicable
Discharge Problem:
Acute renal failure, Acute dehydration, Acute hypotension
Prescriptions:
No Action
atorvastatin 20 MG tablet
20 mg PO HS
multivitamin with folic acid [Tab-A-Karen] 1 TABLET tablet
1 tab PO HS
melatonin 5 mg Tablet
5 mg PO HSPRN PRN (Reason: insomnia)
furosemide 40 mg Tablet
40 mg PO DAILY Qty: 30 11RF
metoprolol succinate 25 mg Tablet Extended Release 24 Hr
25 mg PO BID Qty: 60 11RF
amiodarone 200 mg tablet
200 mg PO DAILY Qty: 30 11RF
ondansetron HCl 8 mg tablet
8 mg PO Q8HPRN PRN (Reason: nausea/vomiting)
prochlorperazine maleate 10 mg tablet
10 mg PO Q6HPRN PRN (Reason: nausea/vomiting)
lorazepam 0.5 mg tablet
0.5 mg PO HSPRN PRN (Reason: sleep)
temazepam 15 mg capsule
15 mg PO HSPRN PRN (Reason: insomnia)
benzonatate 100 mg capsule
100 mg PO TIDPRN PRN (Reason: cough)
oxycodone 5 mg tablet
5 mg PO Q6HPRN PRN (Reason: moderate to severe pain)
Eliquis 5 mg Tablet
10 mg PO BID Qty: 66 0RF
Rx Instructions:
09/02/24 last day for 10 mg twice a day.
Afterwards, reduce to 5 mg twice a day from then on.
lidocaine 4 % Adhesive Patch,Medicated
1 patch topical DAILY PRN (Reason: Right lower abdomen pain) Qty: 6 0RF
guaifenesin 100 mg/5 mL liquid
200 mg PO Q4H PRN (Reason: Cough) Qty: 1000 0RF
Referrals:
Jose C Antoine DO [Family Provider] -
Interventions
Interventions:
[id number] Assessment Last Done: 09/21/24 14:16
Discharge Date and Time
Print Language: ROMANSH
[2024-09-21 12:19] LABS: % Basophils 0.3 % (0-2); % Eosinophils 1.1 % (0-6); % Immature Granulocytes 3.3 % (0-0.5); % Lymphocytes 1.9 % (20.5-51.1); % Monocytes 1.9 % (1.7-9.3); % Neutrophils 91.5 % (42.2-75.2); Absolute Basophils 0.1 10^3/uL (0-0.2); Absolute Eosinophils 0.2 10^3/uL (0-0.7); Absolute Immature Granulocytes 0.5 10^3/uL (0-0.05); Absolute Lymphocytes 0.3 10^3/uL (1.2-3.4); Absolute Monocytes 0.3 10^3/uL (0.1-0.6); Absolute Neutrophils 14.8 10^3/uL (1.4-6.5)
[2024-09-21] MEDS: NSS 1000 IV ×3 (12:33→16:35)
--- NOTE | 2024-09-21 13:49 | CM ---
ED CM consult for SNF placement and GOC
Behind meeting with pt and dtr/Sahra
Pt resides with his spouse/Yuko in a [facility] with 4 [facility], 1st floor set up
Spouse is second , pt has a son/Simone lives in [place] and dtr/Sahra from first
Dtr and spouse are joint POAs of a WW, he is currently with [facility]
Dtr deferred all planning and financials to her step-mother
Pt is typically indep with use of a WW
Pt had 1st session of chemo at [place] recently, planned for 1 week on, 3 weeks off
of ntoe, spouse with brain cancer and just finished chemo
PCP- Jose C Antoine
GOC reviewed along with payor sources for SNF with hospice vs SNF rehab
Home hospice also discussed along with private pay fees for caregivers
Family would like to see how he progresses over next few days
In agreement with hospice referral for info purposes at this time
Private duty list also provided
Referrals sent to [facility], [facility] and [facility] per family request for rehab vs hospice
They would be interested in filling out financial apps at this time
Discharge Disposition- TBD, SNF hospice vs SNF rehab vs home with hospice
[2024-09-21] MEDS: SUBLIMAZE 25 MCG IV (14:27)
--- NOTE | 2024-09-21 14:45 | HOSPNOTE ---
Met with daughter and explained hospice and the philosophy. At this time we will admit patient and treat and meet again tomorrow. The patient was just recently hospitalized and the daughter is very tearful and just needs some time and hoping patient
recovers from this hospitalization however, is realistic with his diagnosis. I called admissions and asked for a bed on [facility] in case he would transition to hospice. Will continue to follow.
--- NOTE | 2024-09-21 14:48 | HPS.HSE ---
Family Physician
-
Family Physician: Jose C Antoine
Chief Complaint
-
Weakness
History of Present Illness
Patient is an 79 y/o male past medical history of pancreatic cancer, CHF, atrial fibrillation, hypertension, and recent bilateral pulmonary emboli who presents with weakness. Patient started chemotherapy last week. Since that time he has had
increasing weakness. He reports very poor intake due to decreased appetite, nausea and dry heaves. He denies diarrhea.
Medical History
Past Medical History
Past Medical History: Reports Other
Additional Past Medical History:
Essential Hypertension
Dyslipidemia
Paroxysmal Atrial Fibrillation
Moderate tricuspid regurgitation
Chronic Diastolic CHF
GERD
Prostate Cancer
Primary Leiomyosarcoma
Pancreatic Cancer
Iliac aneurysm
AAA
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
Pulmonary Embolism
Past Surgical History: Reports Other (Cardiac ablation 2013, cardioversion x 2, splenectomy, pancreatectomy.)
Social History
Tobacco: Non-smoker
Alcohol: None
Drug: None
Personal:
Living: With Family
Employment: Retired
Family History
Family History: Not pertinent
Allergies / Home Medications
Allergies reflects when Allergies were last updated in [facility].
Home Medications with original date entered in [facility]
Allergy/Medication List:
Allergies
Allergy/AdvReac Type Severity Reaction Status Date / Time
No Known Drug Allergies Allergy Unknown Verified 08/27/24 17:48
Home Medications
atorvastatin 20 mg tablet 20 mg PO HS High cholesterol 03/31/13
multivitamin with folic acid 400 mcg tablet (Tab-A-Karen) 1 tab PO HS Supplement 01/19/19
melatonin 5 mg tablet 5 mg PO HSPRN PRN insomnia 02/15/24
amiodarone 200 mg tablet 200 mg PO DAILY Arrhythmia #30 tabs 02/17/24
furosemide 40 mg tablet 40 mg PO DAILY Heart Failure #30 tabs 02/17/24
metoprolol succinate 25 mg tablet,extended release 24 hr 25 mg PO BID Arrhythmia #60 tabs 02/17/24
benzonatate 100 mg capsule 100 mg PO TIDPRN PRN cough 08/25/24
lorazepam 0.5 mg tablet 0.5 mg PO HSPRN PRN sleep 08/25/24
ondansetron HCl 8 mg tablet 8 mg PO Q8HPRN PRN nausea/vomiting 08/25/24
oxycodone 5 mg tablet 5 mg PO Q6HPRN PRN moderate to severe pain 08/25/24
prochlorperazine maleate 10 mg tablet 10 mg PO Q6HPRN PRN nausea/vomiting 08/25/24
temazepam 15 mg capsule 15 mg PO HSPRN PRN insomnia 08/25/24
apixaban 5 mg tablet (Eliquis) 5 mg PO BID 09/21/24
guaifenesin 100 mg/5 mL oral liquid 200 mg PO DAILYPRN PRN cough 09/21/24
Review of Systems
-
A 12 point ROS was completed and negative except as noted: Yes
Constitutional: Denies Fever
Respiratory: Denies Cough or Trouble Breathing
Cardiac: Denies Chest Pain or Palpitations
Abdomen/GI: Reports See HPI
Physical Exam
Vital Signs
Vital Signs
Temp Pulse Resp BP Pulse Ox
97.5 F 105 19 81/57 94
09/21/24 11:04 09/21/24 14:15 09/21/24 14:15 09/21/24 14:00 09/21/24 14:15
Physical Exam
General: Comfortable, Conversant and Appears Chronically Ill
HEENT: Anicteric and Other (Tongue is very dry)
Respiratory: Clear and Non Labored Respirations
Cardiac: S1/S2, Irregular Rhythm and Tachycardia
GI: Soft and Non Tender
Rectal: Deferred by Provider
Musculoskeletal: Other (+2 pitting edema bilateral lower extremity)
Skin: Warm and Dry
Neuro: Awake, Alert, Oriented and Nonfocal/grossly intact
Psych: Calm
Laboratory Results
-
09/21/24 11:12
09/21/24 11:12
Laboratory Results
Total Bilirubin 3.6 mg/dl (0.2-1.3) H 09/21/24 11:12
AST 150 U/L (17-59) H 09/21/24 11:12
ALT 102 U/L (0-50) H 09/21/24 11:12
Alkaline Phosphatase 307 U/L (38-126) H 09/21/24 11:12
Lipase 36 U/L (23-300) 09/21/24 11:12
Abd/Pelvis CT Scan:
1. Abnormal collection between the left lobe of the liver and the stomach measuring up to 12.9 cm in diameter as above. CT appearance most suggestive of hematoma. Other etiologies including abscess considered less likely. Presence or absence of
active hemorrhage cannot be determined on noncontrast examination.
2. Hepatic subcapsular collection as above and small volume perihepatic ascites. The subcapsular collection appears likely slightly smaller as compared with previous chest CT.
Data Reviewed
-
CT Scan: Report Reviewed by me
Lab Data: Labs Reviewed by me
Old Records: Reviewed
Impression/Plan
-
Hyponatremia / Acute Kidney Injury secondary to poor oral intake / volume depletion and hypotension
-Continue IVFs
-Hold Lasix
-Hold metoprolol
-Monitor blood pressure
-Recheck Creatinine in AM
Hepatic Subcapsular Collection, likely Hematoma
-Prior notes indicate vessel injury during liver biopsy
-Per CT report collection appears slightly smaller compared to Chest CT scan from August
-Continue to trend HGb
Recent Bilateral Pulmonary Emboli and RLE DVT - August 2023
-Continue Eliquis
Pancreatic Cancer
-First chemotherapy dose on September 14
-Patient receiving care to [facility]
Atrial Fibrillation, unclear if paroxysmal or persistent
-Metoprolol on hold due to hypotension
-Continue amiodarone
-Continue Eliquis
Chronic HFpEF
-Lasix on hold due to KEYUR
-Monitor Is&Os and Daily Weights
Code Status: DNR confirmed with patient and at time of admission
Dispo: Case Management consulted for discharge planning and possible hospice depending on patient's coarse
--- NOTE | 2024-09-21 15:58 | W.PN.UPDATE ---
Update Note
Progress Note Update
This is an addendum to H&P written by Lali Marques on than 25. Patient seen examined with PA.
79-year-old male past medical history of pancreatic cancer metastases to liver, recently diagnosed started chemotherapy last week at [facility], liver biopsy at [facility] in July 2023 with injury of blood vessel requiring embolization
and several blood transfusions, recent massive PE on Eliquis, atrial fibrillation, hypertension, CHF, presenting with weakness, decreased p.o. intake. Ongoing chronic abdominal pain.
Blood pressure 100s.
Labs show sodium of 124. Creatinine of 3.4. Transaminitis. Leukocytosis on labs. CT abdomen pelvis shows abnormal collection between the left lower the liver and the stomach up to 12.9 cm, hepatic subcapsular collection appears smaller than
previously. Hemoglobin is stable at 10.
Patient with severe hyponatremia/KEYUR secondary to poor p.o. intake and hypovolemia. IV fluids.
Family is in the process of pursuing hospice and looking at options. IV fluids. Hold Lasix. Case management consulted.
No prior abdominal imaging available to see if large fluid collection between the liver and the stomach to 12.9 cm unclear if worsening or stable. Daughter is trying to go into [facility] to pull up prior CT abdomen report. Will hold
Eliquis for now.
[2024-09-21] MEDS: DILAUDID 0.25 MG IV ×2 (16:34→22:51)
--- NOTE | 2024-09-21 20:15 | PTCARENOTE ---
Pt arrived to [address] from ED via stretcher. Pt pulled over into bed 331 with staff assist. Pt oriented to room, call wagner within reach. Pt very weak, lethargic. Able to answer questions for admission. Will continue to monitor.
[2024-09-21] MEDS: MELATONIN 5 MG PO (21:00)
[2024-09-21] MEDS: RESTORIL 15 MG PO (23:41)
[2024-09-22 03:00] VITALS: BP 125/78
[2024-09-22] MEDS: NSS 1000 IV ×2 (04:33→14:56)
[2024-09-22 05:44] VITALS: BMI 26.5
[2024-09-22 06:35] LABS: Hematocrit 30.2 % (39.0-52.0); Hemoglobin 10.1 g/dL (13.0-18.0); Mean Corp Hgb Conc. 33.4 g/dL (33.0-37.0); Mean Corpuscular Hgb 27.8 pg (27.0-31.0); Mean Corpuscular Volume 83.2 fL (80.0-94.0); Mean Platelet Volume 10.2 fL (7.4-10.4); Platelet Count 218 10^3/uL (130-400); Red Blood Cell Count 3.63 10^6/uL (4.70-6.10); Red Cell Dist. Width 18.8 % (11.5-14.5); White Blood Cell Count 17.3 10^3/uL (4.8-10.8)
[2024-09-22 07:25] LABS: ALT (SGPT) 104 U/L (0-50); AST (SGOT) 149 U/L (17-59); Alkaline Phosphatase 350 U/L (38-126); Blood Urea Nitrogen 75 mg/dl (9-20); Calcium 7.8 mg/dl (8.4-10.2); Carbon Dioxide 21 mmol/L (22-30); Chloride 95 mmol/L (98-107); Estimated Creatinine Clearance 19 ml/min; Glucose 100 mg/dl (70-99); Potassium 4.4 mmol/L (3.5-5.1); Sodium 128 mmol/L (135-145); Total Bilirubin 3.5 mg/dl (0.2-1.3); Total Protein 5.4 g/dl (6.3-8.2); eGFR 16.26
[2024-09-22 07:38] VITALS: BP 102/68
[2024-09-22] MEDS: PACERONE 200 MG PO (09:05)
--- NOTE | 2024-09-22 10:34 | W.PN.HOSP.TC ---
Addendum entered and electronically signed by Jp Garcia MD 09/30/24 15:23:
Moderate protein calorie malnutrition
Original Note:
Today's Communication/Plan
-
IV hydration.
Hold Lasix.
Follow BMP.
Blood cultures
Follow WBC and temperature curve.
Follow hemoglobin.
Hold Eliquis
Adjust analgesic regimen with addition of MS Contin
Hospice consultation
Assessment / Plan
Assessment / Plan
Impression
Presentation with generalized weakness, fatigue, decreased p.o. intake
Acute kidney injury.
Hypovolemic hyponatremia.
Metabolic encephalopathy secondary to above.
Leukocytosis.
Persistent retrohepatic collection
Severe malignant pain
Other conditions:
Metastatic pancreatic carcinoma.
� Status post first round of chemotherapy
-Primary oncologist Dr. Gael Tai in [facility]
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
Recent massive pulmonary embolism on anticoagulation with Eliquis
Right lower extremity DVT
Paroxysmal atrial fibrillation with history of ablation and cardioversions
Abdominal aortic aneurysm
Hypertension
CHF preserved EF
GERD
History of prostate carcinoma
Plan
Presentation with generalized weakness, fatigue, decreased oral intake and deteriorating performance status.
Multifactorial in the patient with metastatic pancreatic carcinoma, status post recent chemotherapy, acute kidney injury secondary to dehydration.
Acute kidney injury suspect secondary dehydration
Hypovolemic hyponatremia
Bladder scan
Hold Lasix
Continue IV fluids, isotonic solution
Follow BMP
Severe malignant pain.
Start MS Contin
Continue oxycodone
Continue IV hydromorphone titrating dose
Continue preadmission regimen with temazepam/lorazepam monitor mental status for oversedation
Leukocytosis.
Persistent intra-abdominal collection behind left hepatic lobe traced back to old imaging remains stable in size.
Possibly old an organized hematoma versus abscess.
Minimal ascites as well.
Check blood cultures
Follow WBC
Monitor closely off antibiotics
Hold Eliquis and monitor hemoglobin (hemoglobin stable to admission at 10.1 (11.4 )
Chronic CHF preserved EF.
Dehydrated with KEYUR.
Hold Lasix
Paroxysmal atrial fibrillation
Continue amiodarone
Hold Eliquis acutely as above
Disposition: As discussed with patient's daughter given deteriorating performance status, they had been inquiring for hospice consultation and transition.
CODE STATUS DNR
Anticipated Discharge: 24 - 48 hours
Subjective/Interval History
-
Date of Service: September 22, 2024
Objective Data
-
Labs:
Laboratory Results
09/22/24
05:45
WBC 17.3 H
Hgb 10.1 L
Hct 30.2 L
Plt Count 218
Sodium 128 L
Potassium 4.4
Chloride 95 L
Carbon Dioxide 21 L
BUN 75 H
Creatinine 3.6 H
Glucose 100 H
Calcium 7.8 L
Total Bilirubin 3.5 H
AST 149 H
ALT 104 H
Alkaline Phosphatase 350 H
Vital Signs:
Vital Signs
Temp Pulse Resp BP Pulse Ox
98.0 F 110 16 102/68 95
09/22/24 07:38 09/22/24 07:38 09/22/24 07:38 09/22/24 07:38 09/22/24 07:38
Physical Exam
-
General: Well Developed and No Apparent Distress
HEENT: Normocephalic, Atraumatic and Moist Mucous Membranes
Respiratory: Clear to Auscultation
Cardiac: Regular Rhythm and S1/S2; Negative Murmur, Rub or Gallop
GI: Soft, Nontender, Nondistended and Normal Bowel Sounds; Negative Organomegaly
Rectal: Deferred by Provider
Musculoskeletal: No Clubbing, No Cyanosis and No Edema
Skin: Negative Rash
Neuro: Nonfocal/Grossly Intact
[2024-09-22 10:45] VITALS: BP 105/71
[2024-09-22 11:29] VITALS: BMI 26.5
[2024-09-22] MEDS: DILAUDID 0.25 MG IV ×3 (11:38→22:47)
[2024-09-22] MEDS: OXYCONTIN (CONTROLLED RELEASE) 10 MG PO (11:38)
--- NOTE | 2024-09-22 13:45 | HOSPNOTE ---
Met with spouse, daughter and Dr Garcia to discuss hospice and the philosophy. The plan is to continue IV fluids today and tomorrow 3/ patient will be admitted to inpatient hospice for pain management. CM updated and Admissions called to move
patient to [facility].
--- NOTE | 2024-09-22 14:30 | CM ---
Received consult for hospice. Family requested VN. Jess Barnhart stated that patient is GIP.
Plan: Case management will continue to follow and assist with discharge planning. Hospice.
[2024-09-22 15:15] VITALS: BP 95/62
[2024-09-22 18:53] VITALS: BP 112/71
[2024-09-22] MEDS: OXYCONTIN (CONTROLLED RELEASE) PO (20:33)
[2024-09-22] MEDS: MELATONIN PO (22:26)
[2024-09-22 23:08] VITALS: BP 115/75
[2024-09-23] MEDS: DILAUDID 0.25 MG IV ×2 (02:27→10:57)
[2024-09-23 06:00] VITALS: BMI 27.1
[2024-09-23 08:08] LABS: Hematocrit 32.7 % (39.0-52.0); Hemoglobin 10.7 g/dL (13.0-18.0); Mean Corp Hgb Conc. 32.7 g/dL (33.0-37.0); Mean Corpuscular Hgb 27.2 pg (27.0-31.0); Mean Corpuscular Volume 83.2 fL (80.0-94.0); Mean Platelet Volume 9.8 fL (7.4-10.4); Platelet Count 202 10^3/uL (130-400); Red Blood Cell Count 3.93 10^6/uL (4.70-6.10); White Blood Cell Count 17.6 10^3/uL (4.8-10.8)
[2024-09-23 08:14] VITALS: BP 103/64
[2024-09-23] MEDS: PACERONE 200 MG PO (08:23)
[2024-09-23] MEDS: OXYCONTIN (CONTROLLED RELEASE) 10 MG PO (08:23)
[2024-09-23] MEDS: ZOFRAN 4 MG IV (08:46)
[2024-09-23 08:53] LABS: ALT (SGPT) 91 U/L (0-50); AST (SGOT) 110 U/L (17-59); Albumin 1.9 g/dl (3.5-5.0); Alkaline Phosphatase 386 U/L (38-126); Blood Urea Nitrogen 78 mg/dl (9-20); Calcium 7.8 mg/dl (8.4-10.2); Carbon Dioxide 21 mmol/L (22-30); Chloride 97 mmol/L (98-107); Estimated Creatinine Clearance 18 ml/min; Glucose 97 mg/dl (70-99); Potassium 4.4 mmol/L (3.5-5.1); Sodium 129 mmol/L (135-145); Total Bilirubin 3.3 mg/dl (0.2-1.3); Total Protein 5.3 g/dl (6.3-8.2); eGFR 15.73
[2024-09-23 10:20] LABS: % Basophils 0.5 % (0-2); % Lymphocytes 0.7 % (20.5-51.1); % Neutrophils 87.8 % (42.2-75.2); Absolute Basophils 0.1 10^3/uL (0-0.2); Absolute Eosinophils 0.2 10^3/uL (0-0.7); Absolute Immature Granulocytes 1.1 10^3/uL (0-0.05); Absolute Lymphocytes 0.1 10^3/uL (1.2-3.4); Absolute Monocytes 0.7 10^3/uL (0.1-0.6); Absolute Neutrophils 15.4 10^3/uL (1.4-6.5); Nucleated Red Blood Cells % 10.3 % (-)
--- NOTE | 2024-09-23 10:53 | HOSPNOTE ---
Patient will be admitted inpatient hospice. Consents are signed and Attending, admissions and CM aware of plan. Patient will be admitted for pain management. Patient will be seen by surveillance analyst daily.
--- NOTE | 2024-09-23 12:30 | CM ---
ROSITA spoke with Chiquis from Hospice
Patient admitted [facility] hospice.
PLAN: inpatient hospice
[2024-09-23] MEDS: COMPAZINE 5 MG IV (13:23)
[2024-09-23] MEDS: DILAUDID 2 MG IV (13:24)
[2024-09-23] MEDS: TESSALON PERLES 200 MG PO (13:39)
--- NOTE | 2024-09-24 09:38 | PN.CDI ---
CDI
- -
CDI:
Physician Documentation Request
Admit Date: 09/21/24 16:09
Dear Doctor Radha,
Please review the following and provide your response in the progress notes.
Clinical Indicators:
Pt admitted with generalized weakness, fatigue, decreased p.o. intake/Acute kidney injury/Hypovolemic hyponatremia.
Nutrition consult 09/22, ' During visit RD able to visualize apparent ribs, protrusion of clavical and temporal wasting. With < 75% estimated needs > 1 month and observed muscle and fat wasting meets AND/ASPEN criteria for moderate protein calorie
malnutrition. Request progression of diet as tolerated....Subcutaneous loss of over rib cage severity Moderate ... Muscle loss over clavicle severity moderate..temporal severity moderate ..'
Based on the above information and your assessment, which of the following most accurately represents the patient's nutritional status?
Moderate protein calorie Malnutrition
Other (please specify)
[place] Criteria (ACP Hospitalist 2017)
2 or more criteria must be present for either
non severe or severe malnutrition
Note that the criteria differs related to the
presence of an acute or chronic illness
Acute Illness Chronic Illness
Energy Intake Non Severe: <75% for >7 days Non Severe: <75% for >1 month
Severe: <50% for >5 days Severe: <75% for >1 month
Weight Loss Non Severe: 1-2% over 1 week Non Severe: 5% over 1 month
5% over 1 month 7.5% over 3 months
7.5% over 3 months 10% over 6 months
1 year N/A 20% over 1 year
Severe: >2% over 1 week Severe: >5% over 1 month
>5% over 1 month >7.5% over 3 months
>7.5% over 3 months >10% over 6 months
1 year N/A >20% over 1 year
Body Fat Non Severe: Mild Decrease Non Severe: Mild Loss
Severe: Moderate Decrease Severe: Severe Loss
Muscle Mass Non Severe: Mild Decrease Non Severe: Mild Loss
Severe: Moderate Decrease Severe: Severe Loss
Fluid Accumulation Non Severe: Mild Accumulation Non Severe: Mild Accumulation
Severe: Moderate to severe Severe: Moderate to severe
accumulation accumulation
Reduced Loin Puller Strength Non Severe: N/A Non Severe: N/A
Severe: Measurably reduced Severe: Measurably reduced
Use of terms such as suspected, likely, concern for, or probable (associated with a specific diagnosis that is being evaluated, monitored, or treated as if it exists) are acceptable and can be coded in the inpatient setting, when documented at the
time of discharge.
Thank you,
Zenia Lee RN
CDI Specialist
[employer]
Please use your independent medical judgment in providing your response.
== END 2024-09-23 15:31 | disposition hospice, inpatient (51) | DRG 682 ==
LOC: 2 NORTH 16:09
PROVIDERS: Physician Assistant Medical; ADMITTING PHYSICIAN Hospitalist; ATTENDING PHYSICIAN Internal Medicine; EMERGENCY PHYSICIAN Student in an Organized Health Care Education/Training Program; FAMILY PHYSICIAN Internal Medicine
DX: N17.9 Acute kidney failure, unspecified (principal); G93.41 Metabolic encephalopathy; I26.99 Other pulmonary embolism without acute cor pulmonale; C25.9 Malignant neoplasm of pancreas, unspecified; E87.1 Hypo-osmolality and hyponatremia; I50.32 Chronic diastolic (congestive) heart failure; C78.7 Secondary malignant neoplasm of liver and intrahepatic bile duct; E44.0 Moderate protein-calorie malnutrition; R62.7 Adult failure to thrive; E86.0 Dehydration; I95.9 Hypotension, unspecified; Z79.01 Long term (current) use of anticoagulants; I11.0 Hypertensive heart disease with heart failure; Z66 Do not resuscitate; G89.3 Neoplasm related pain (acute) (chronic); I48.0 Paroxysmal atrial fibrillation; K21.9 Gastro-esophageal reflux disease without esophagitis; Z85.07 Personal history of malignant neoplasm of pancreas; Z86.711 Personal history of pulmonary embolism; Z86.718 Personal history of other venous thrombosis and embolism; Z90.81 Acquired absence of spleen; M79.81 Nontraumatic hematoma of soft tissue; Z68.27 Body mass index [BMI] 27.0-27.9, adult
CPT/HCPCS: 74176; 80053; 83690; 85025; 85027; 87040; 93005; 96361; 96374; 99285

== ENCOUNTER 2024-09-23 15:40 | Inpatient (IN) | payer OTHER, SELFPAY ==
--- NOTE | 2024-09-23 15:35 | HOSPNOTE ---
Patient has been admitted onto inpatient hospice services. Patient meets inpatient criteria for the management of pain and nausea that could not be managed in the outpatient setting. Patient also requires frequent nursing assessment. Hospice will
visit and assess patient daily.
--- NOTE | 2024-09-23 16:19 | W.PN.HOSP.TC ---
Today's Communication/Plan
-
Hospice care
Assessment / Plan
Assessment / Plan
Impression
Presentation with generalized weakness, fatigue, decreased p.o. intake
Acute kidney injury.
Hypovolemic hyponatremia.
Metabolic encephalopathy secondary to above.
Leukocytosis.
Persistent retrohepatic collection
Severe malignant pain
Other conditions:
Metastatic pancreatic carcinoma.
� Status post first round of chemotherapy
-Primary oncologist Dr. Gael Tai in [facility]
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
Recent massive pulmonary embolism on anticoagulation with Eliquis
Right lower extremity DVT
Paroxysmal atrial fibrillation with history of ablation and cardioversions
Abdominal aortic aneurysm
Hypertension
CHF preserved EF
GERD
History of prostate carcinoma
Plan:
Advanced pancreatic carcinoma with rapidly deteriorating performance status.
Multisystem failure including acute kidney injury, metabolic encephalopathy.
Persistent and severe malignant pain.
Discussed with patient's family.
Has been transition to inpatient hospice
Anticipated Discharge: 24 - 48 hours
Subjective/Interval History
-
Date of Service: September 23, 2024
[2024-09-23] MEDS: ROBITUSSIN AC 10 ML PO ×2 (16:48→22:42)
[2024-09-23] MEDS: ROBINUL 0.2 MG IV (17:56)
[2024-09-23] MEDS: DILAUDID 2 MG IV (22:28)
[2024-09-23 22:46] VITALS: BP 116/74
[2024-09-24] MEDS: ATIVAN 2 MG IV ×2 (00:02→11:12)
[2024-09-24] MEDS: DILAUDID 2 MG IV ×3 (04:19→11:11)
[2024-09-24 07:20] VITALS: BP 135/79
[2024-09-24] MEDS: ROBITUSSIN AC 10 ML PO (08:25)
--- NOTE | 2024-09-24 09:12 | HOSPNOTE ---
Superintendent Recreation visited the 79 year old patient to conduct the Initial WELDING MACHINE OPERATOR ELECTRON BEAM Assessment. Patient is admitted onto Hospice Services and [facility] Level of Care with the Primary Diagnosis of Pancreatic Cancer. WELDING MACHINE OPERATOR ELECTRON BEAM entered patient's room and introduce
herself and explained the Spring Bender role as it pertains to Hospice. Patient was asleep in bed and patient's sister Yasmin was at patient's bedside as she was with him all night. Yasmin reported patient was restless and wanted to get out of the bed and
hospital. Yasmin reported she notified the nurse and they assessed patient. Yasmin reported she hopes patient is able to rest as the nurse just administered his pain medication. Emotional Support Provided. Yasmin reported patient's Yuko and daughter
Sahra will visit patient in a few hours. Patient has a Living Will and Spouse is the POA. Patient has 2 children a daughter Sahra and a son Simone. Sahra resides in [place] and Simone resides in [place], he is arriving in town today. Patient has 4
grandchildren ages 16, 14, 6, and 4. Patient isn't eating and minimal drinking. WELDING MACHINE OPERATOR ELECTRON BEAM asked patient if he needed anything and patient responded no. 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 Patient was very protective of his family and loved golf. WELDING MACHINE OPERATOR ELECTRON BEAM contacted Spouse to introduce herself and provide emotional support, received voicemail and left a message. Sahra reported patient will be
cremated and the family to have a Valera of Life. Bereavement is low as family appears to be coping appropriately. Patient appears to be resting and didn't show signs of pain and/or distress during this visit, as nurse administered medications
prior to visit. Nurse reported patient is itchy and in pain. Medications administered and will contact Physician to see if additional medications can be prescribed.
Patient meets the GIP Level of Care for SN assessments, management of pain and nausea related to Ascites that could not be managed at home and/or in an outpatient setting. Discharge planning continues.
WELDING MACHINE OPERATOR ELECTRON BEAM will visit weekly to provide emotional and supportive services and to monitor for additional services while on GIP Level of Care.
--- NOTE | 2024-09-24 10:06 | PTCARENOTE ---
Patient ringing call wagner stating to this RN he feels like he needs to urinate but cannot, having pain/pressure in abdominal area. This RN bladder scanned patient for 628ml. This RN communicated with MD, verbal order taken for madera for end of life,
patient in agreement. 16fr madera inserted by this RN with second RN present, 650 ml adalgisa colored output on insertion. Patient medicated with PRN IV dilaudid beforehand, tolerated procedure - see MAR.
[2024-09-24] MEDS: NSS (PRESERVATIVE FREE) 1 ML IV (11:12)
--- NOTE | 2024-09-24 13:26 | HOSPNOTE ---
Patient was given a full bed bath and oral care was completed. Patient was medicated prior for severe pain. Family at bedside and emotional support provided. Patient will most likely need a drip. Patient will be seen daily by hospice. Patient
continues to be inpatient hospice for pain management.
--- NOTE | 2024-09-24 13:39 | CM ---
patient chart reviewed
PLAN: On GIP hospice
--- NOTE | 2024-09-24 15:13 | W.PN.HOSP.TC ---
Today's Communication/Plan
-
Continue hospice care.
Schreiber catheter for end-of-life care.
Transition to hydromorphone drip with titration for comfort
Assessment / Plan
Assessment / Plan
Impression
Presentation with generalized weakness, fatigue, decreased p.o. intake
Acute kidney injury.
Hypovolemic hyponatremia.
Metabolic encephalopathy secondary to above.
Leukocytosis.
Persistent retrohepatic collection
Severe malignant pain
Other conditions:
Metastatic pancreatic carcinoma.
� Status post first round of chemotherapy
-Primary oncologist [facility]. Gael Tai in [facility]
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
Recent massive pulmonary embolism on anticoagulation with Eliquis
Right lower extremity DVT
Paroxysmal atrial fibrillation with history of ablation and cardioversions
Abdominal aortic aneurysm
Hypertension
CHF preserved EF
GERD
History of prostate carcinoma
Plan:
Advanced pancreatic carcinoma with rapidly deteriorating performance status.
Multisystem failure including acute kidney injury, metabolic encephalopathy.
Persistent and severe malignant pain.
Discussed with patient's family.
Has been transition to inpatient hospice
Anticipated Discharge: 24 - 48 hours
Subjective/Interval History
-
Date of Service: September 24, 2024
Objective Data
-
Vital Signs:
Vital Signs
Temp Pulse Resp BP Pulse Ox
97.5 F 110 18 135/79 93
09/24/24 07:20 09/24/24 07:20 09/24/24 07:20 09/24/24 07:20 09/24/24 07:55
I&O
09/23/24 09/24/24 09/25/24
06:59 06:59 06:59
Intake Total 480 / 480
Output Total 650 / 650
Balance 480 / 480 -650 / -650
Physical Exam
-
General: Well Developed and No Apparent Distress
HEENT: Normocephalic, Atraumatic and Moist Mucous Membranes
Respiratory: Clear to Auscultation
Cardiac: Regular Rhythm and S1/S2; Negative Murmur, Rub or Gallop
GI: Soft, Nontender, Nondistended and Normal Bowel Sounds; Negative Organomegaly
Rectal: Deferred by Provider
Musculoskeletal: No Clubbing, No Cyanosis and No Edema
Skin: Negative Rash
Neuro: Nonfocal/Grossly Intact
--- NOTE | 2024-09-24 15:55 | PTCARENOTE ---
Addendum entered by Rahel Benavides RN 09/24/24 16:21:
Dilaudid gtt initiated at step 2, infusing through R AC IV at 0.5 mg/hr. Infusion verified with second RN Simone. Family at bedside updated on plan of care.
Original Note:
After family discussion with hoop maker and communicating with MD, pending dilaudid gtt activated at step 2, pharmacy made aware. Patient unresponsive, mouth breathing with occasional small bouts of apnea. Schreiber draining adalgisa colored urine.
[2024-09-24] MEDS: DILAUDID 50 IV (15:57)
[2024-09-24 23:18] VITALS: BP 123/71
[2024-09-25 07:16] VITALS: BP 117/74
--- NOTE | 2024-09-25 09:16 | CM ---
Reviewed the chart notes. Continues with Dilaudid gtt. CM continues to be available to patient/family.
Plan: [facility]IP Hospice.
[2024-09-25] MEDS: ATIVAN 2 MG IV ×2 (09:36→15:19)
[2024-09-25] MEDS: DILAUDID 0.5 MG IV ×2 (09:36→15:18)
[2024-09-25] MEDS: ROBINUL 0.2 MG IV ×2 (10:33→14:36)
--- NOTE | 2024-09-25 10:45 | HOSPNOTE ---
Patient is non verbal very lethargic increased secretions noted. Family bedside emotional support provided. Patient was washed and repositioned medicated with PRN dose of dilaudid and ativan. Patient continues being inpatient appropriate for pain
management. Patient will be seen daily by hospice.
--- NOTE | 2024-09-25 13:23 | W.PN.HOSP.TC ---
Today's Communication/Plan
-
Continue hospice care
Assessment / Plan
Assessment / Plan
Impression
Presentation with generalized weakness, fatigue, decreased p.o. intake
Acute kidney injury.
Hypovolemic hyponatremia.
Metabolic encephalopathy secondary to above.
Leukocytosis.
Persistent retrohepatic collection
Severe malignant pain
Other conditions:
Metastatic pancreatic carcinoma.
� Status post first round of chemotherapy
-Primary oncologist Dr. Gael Tai in [facility]
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
Recent massive pulmonary embolism on anticoagulation with Eliquis
Right lower extremity DVT
Paroxysmal atrial fibrillation with history of ablation and cardioversions
Abdominal aortic aneurysm
Hypertension
CHF preserved EF
GERD
History of prostate carcinoma
Plan:
Advanced pancreatic carcinoma with rapidly deteriorating performance status.
Multisystem failure including acute kidney injury, metabolic encephalopathy.
Persistent and severe malignant pain.
Discussed with patient's family.
Has been transition to inpatient hospice
Anticipated Discharge: 24 - 48 hours
Subjective/Interval History
-
Date of Service: September 25, 2024
Objective Data
-
Vital Signs:
Vital Signs
Temp Pulse Resp BP Pulse Ox
98.1 F 116 14 117/74 93
09/25/24 07:16 09/25/24 07:16 09/25/24 07:16 09/25/24 07:16 09/25/24 08:00
I&O
09/24/24 09/25/24 09/26/24
06:59 06:59 06:59
Intake Total 480 / 480
Output Total 1000 / 1000
Balance 480 / 480 -1000 / -1000
Physical Exam
-
General: Well Developed and No Apparent Distress
HEENT: Normocephalic, Atraumatic and Moist Mucous Membranes
Respiratory: Clear to Auscultation
Cardiac: Regular Rhythm and S1/S2; Negative Murmur, Rub or Gallop
GI: Soft, Nontender, Nondistended and Normal Bowel Sounds; Negative Organomegaly
Rectal: Deferred by Provider
Musculoskeletal: No Clubbing, No Cyanosis and No Edema
Skin: Negative Rash
Neuro: Nonfocal/Grossly Intact
[2024-09-25] MEDS: BENADRYL 25 MG IV (15:19)
[2024-09-25 19:00] VITALS: BP 124/77
[2024-09-26 07:29] VITALS: BP 108/71
[2024-09-26] MEDS: BENADRYL 25 MG IV ×2 (07:45→16:56)
--- NOTE | 2024-09-26 11:29 | CHAP ---
Kelvin was resting comfortably, nonverbal. He opened his eyes briefly during the visit, did not show signs of pain. Spouse, Yuko was present, along with daughter, Sahra, son, Simone, and extended family. Yuko shared background about Chip,
and welcomed prayer. We commended Rashi to God, giving thanks for his life and love, and asking peace for all. Emotional and spiritual support provided, along with a prayer blanket. 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
available to family as needed.
--- NOTE | 2024-09-26 12:48 | W.PN.HOSP.TC ---
Today's Communication/Plan
-
cont inpt hospice
Assessment / Plan
Assessment / Plan
Impression
Presentation with generalized weakness, fatigue, decreased p.o. intake
Acute kidney injury.
Hypovolemic hyponatremia.
Metabolic encephalopathy secondary to above.
Leukocytosis.
Persistent retrohepatic collection
Severe malignant pain
Other conditions:
Metastatic pancreatic carcinoma.
� Status post first round of chemotherapy
-Primary oncologist Dr. Gael Tai in [facility]
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
Recent massive pulmonary embolism on anticoagulation with Eliquis
Right lower extremity DVT
Paroxysmal atrial fibrillation with history of ablation and cardioversions
Abdominal aortic aneurysm
Hypertension
CHF preserved EF
GERD
History of prostate carcinoma
Plan:
Advanced pancreatic carcinoma with rapidly deteriorating performance status.
Multisystem failure including acute kidney injury, metabolic encephalopathy.
Persistent and severe malignant pain.
Discussed with patient's family.
Has been transition to inpatient hospice
Cont comfort meds Dilaudid drip, IV ativan PRN, etc.
provided emotional support to family at bedside
Anticipated Discharge: 24 - 48 hours
Subjective/Interval History
-
Date of Service: September 26, 2024
Objective Data
-
Vital Signs:
Vital Signs
Temp Pulse Resp BP Pulse Ox
37.2 C 118 14 108/71 92
09/26/24 07:29 09/26/24 07:29 09/26/24 07:29 09/26/24 07:29 09/26/24 08:05
I&O
09/25/24 09/26/24 09/27/24
06:59 06:59 06:59
Intake Total 0 / 0
Output Total 1000 / 1000 200 / 200
Balance -1000 / -1000 -200 / -200
Review of Systems
-
Unable to obtain full review of systems at this time due to: Acuity
Physical Exam
-
General: Comfortable
Respiratory: Non Labored Respirations; Negative Accessory Resp Muscle Use
Rectal: Deferred by Provider
Neuro: Negative Awake
Psych: Calm; Negative Intact Judgement/Insight
--- NOTE | 2024-09-26 13:00 | HOSPNOTE ---
Patient assessed in bed with spouse and family present. Eyes closed but will occasionally will shake his head yes no to simple questions. FLACC is 0. Respirations are unlabored with occasional apnea. Pulse ox on RA 89% currently. Peripheral pulses
strong. Patient has required 1 prn benadryl, 1 prn Robinol, 1 prn dilaudid, 1 prn lorazepam in last 24 hours. SN met with family, all questions answered and emotional support provided. Patient required GIP level of care as his symptoms could not be
managed in the home. Discharge planning continues. Vitals 98.9, 118, 14, 108/71. Informal conference with Juju JOSEPH.
[2024-09-26] MEDS: DILAUDID 50 IV (15:42)
[2024-09-26] MEDS: ATIVAN 2 MG IV (16:54)
[2024-09-26 19:10] VITALS: BP 105/79
[2024-09-26 20:28] VITALS: BP 105/79
[2024-09-27] MEDS: BENADRYL 25 MG IV ×4 (00:40→23:57)
[2024-09-27 07:19] VITALS: BP 114/75
[2024-09-27] MEDS: ROBINUL 0.2 MG IV ×2 (10:10→14:24)
[2024-09-27] MEDS: DILAUDID 0.5 MG IV ×3 (10:10→23:58)
--- NOTE | 2024-09-27 10:18 | HOSPNOTE ---
patient remains GIP appropriate level of care. Symptoms require IV medications for management. Dilaudid continuous infusion at 0.5mg/hr received 3 boluses of Dilaudid, Ativan x 1 Benadryl x 2 and Robinul x1 all intravenously in last 24 hours. HR
116 tachycardia, lethargic and respirations shallow. Informal conference with facility nurse Sahra.
--- NOTE | 2024-09-27 10:33 | W.PN.HOSP.TC ---
Today's Communication/Plan
-
see A/P
Assessment / Plan
Assessment / Plan
Impression
Presentation with generalized weakness, fatigue, decreased p.o. intake
Acute kidney injury.
Hypovolemic hyponatremia.
Metabolic encephalopathy secondary to above.
Leukocytosis.
Persistent retrohepatic collection
Severe malignant pain
Other conditions:
Metastatic pancreatic carcinoma.
� Status post first round of chemotherapy
-Primary oncologist Dr. Gael Tai in [facility]
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
Recent massive pulmonary embolism on anticoagulation with Eliquis
Right lower extremity DVT
Paroxysmal atrial fibrillation with history of ablation and cardioversions
Abdominal aortic aneurysm
Hypertension
CHF preserved EF
GERD
History of prostate carcinoma
Plan:
Advanced pancreatic carcinoma with rapidly deteriorating performance status.
Multisystem failure including acute kidney injury, metabolic encephalopathy.
Persistent and severe malignant pain.
Discussed with patient's family.
Transitioned to inpatient hospice
Cont comfort meds Dilaudid drip, IV ativan PRN, etc.
Anticipated Discharge: Within 24 hours
Subjective/Interval History
-
Date of Service: September 27, 2024
Objective Data
-
Vital Signs:
Vital Signs
Temp Pulse Resp BP Pulse Ox
36.8 C 116 16 114/75 93
09/27/24 07:19 09/27/24 07:19 09/27/24 07:19 09/27/24 07:19 09/27/24 07:19
I&O
09/26/24 09/27/24 09/28/24
06:59 06:59 06:59
Intake Total 0 / 0 0 / 0
Output Total 200 / 200 625 / 625
Balance -200 / -200 -625 / -625
Review of Systems
-
Unable to obtain full review of systems at this time due to: Acuity
Physical Exam
-
General: Comfortable and Appears Chronically Ill
Respiratory: Non Labored Respirations; Negative Accessory Resp Muscle Use
Rectal: Deferred by Provider
Neuro: Negative Awake
Psych: Calm; Negative Intact Judgement/Insight
--- NOTE | 2024-09-27 12:20 | PTCARENOTE ---
pt given prn dose of dilaudid and prn dose of benadryl this morning. pt received complete bed bath with this nurse and pct. madera care completed. orange urinary output at this time. pt on step 2 dilaudid drip.
[2024-09-27 20:04] VITALS: BP 132/81
[2024-09-28] MEDS: DILAUDID 0.5 MG IV ×3 (03:38→09:57)
[2024-09-28 07:00] VITALS: BP 121/71
[2024-09-28 07:05] VITALS: BP 112/71
--- NOTE | 2024-09-28 09:08 | PTCARENOTE ---
Addendum entered by Maddie Edwards RN 09/28/24 09:29:
patient is a DNR on Hospice, end of life care.
Original Note:
received patient this am in bed sleeping, unresponsive to voice, appears pain free, resp. even and unlabored. VSS. IV Dilaudid drip @ 0.5mg/hr via right FA. son sleeping on sofa.
[2024-09-28] MEDS: ATIVAN 2 MG IV ×2 (09:56→22:47)
--- NOTE | 2024-09-28 10:06 | PTCARENOTE ---
hospice nurse at bedside, gave patient 2mg IV Ativan and 0.5mg IV Dilaudid as breakthrough. patient opened his left eye when I spoke to him. turned patient on right side. family around bed.
[2024-09-28] MEDS: DILAUDID 1 MG IV ×2 (10:36→17:03)
[2024-09-28] MEDS: BENADRYL 25 MG IV (10:39)
--- NOTE | 2024-09-28 10:54 | HOSPNOTE ---
Patient is very lethargic and still seems to be in pain. Dilaudid drip was increased and and PRN dose was given for discomfort. Asked the nurse to medicate prior to care and positioning. Patient appears more comfortable since increasing the drip.
Patient continues to be inpatient appropriate for pain management. Patient will be seen daily.
--- NOTE | 2024-09-28 10:56 | PTCARENOTE ---
hospice nurse just finished washing patient, she contacted Dr. Garcia, increased IV Dilaudid gtt. to 1mg and gave 1mg IV Dilaudid breakthrough, and gave Benadryl 25mg IV as ordered.
--- NOTE | 2024-09-28 12:22 | W.PN.HOSP.TC ---
Today's Communication/Plan
-
Hospice/comfort care
Remains on IV hydromorphone drip. Titrate to comfort.
Discussed with nursing
Assessment / Plan
Assessment / Plan
Impression
Presentation with generalized weakness, fatigue, decreased p.o. intake
Acute kidney injury.
Hypovolemic hyponatremia.
Metabolic encephalopathy secondary to above.
Leukocytosis.
Persistent retrohepatic collection
Severe malignant pain
Other conditions:
Metastatic pancreatic carcinoma.
� Status post first round of chemotherapy
-Primary oncologist Dr. Gael Tai in [facility]
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
Recent massive pulmonary embolism on anticoagulation with Eliquis
Right lower extremity DVT
Paroxysmal atrial fibrillation with history of ablation and cardioversions
Abdominal aortic aneurysm
Hypertension
CHF preserved EF
GERD
History of prostate carcinoma
Plan:
Advanced pancreatic carcinoma with rapidly deteriorating performance status.
Multisystem failure including acute kidney injury, metabolic encephalopathy.
Persistent and severe malignant pain.
Discussed with patient's family.
Transitioned to inpatient hospice
Cont comfort meds Dilaudid drip, IV ativan PRN, etc.
Anticipated Discharge: 24 - 48 hours
Subjective/Interval History
-
Date of Service: September 28, 2024
Objective Data
-
Vital Signs:
Vital Signs
Temp Pulse Resp BP Pulse Ox
97.8 F 107 12 112/71 91
09/28/24 07:05 09/28/24 07:05 09/28/24 07:05 09/28/24 07:05 09/28/24 08:30
I&O
09/27/24 09/28/24 09/29/24
06:59 06:59 06:59
Intake Total 0 / 0
Output Total 625 / 625 925 / 925
Balance - / - - / -
Physical Exam
-
General: Comfortable and Appears Chronically Ill
Respiratory: Non Labored Respirations; Negative Accessory Resp Muscle Use
Rectal: Deferred by Provider
Neuro: Negative Awake
Psych: Calm; Negative Intact Judgement/Insight
--- NOTE | 2024-09-28 12:30 | CM ---
patient chart reviewed
PLAN: remains on hospice
[2024-09-28] MEDS: ROBINUL 0.2 MG IV ×2 (15:41→22:47)
[2024-09-28] MEDS: FLUSH (NSS) 1 FLUSH IV ×2 (15:42→17:04)
--- NOTE | 2024-09-28 15:45 | PTCARENOTE ---
family called out, would like something for secretions, Robinul IV given as ordered. family doesnot ant him turned at this time.
[2024-09-28] MEDS: DILAUDID 50 IV (15:49)
--- NOTE | 2024-09-28 15:59 | PTCARENOTE ---
administered a new bag of Dilaudid due to bag hanging for 48 hours, witnessed by Jazmin Bradford RN, IV Dilaudid @ 1mg/hr via right arm, step 3.
--- NOTE | 2024-09-28 17:08 | PTCARENOTE ---
patient moaning, Dilaudid 1mg IV Givner as ordered following step3 protocol.
[2024-09-28 19:00] VITALS: BP 125/74
[2024-09-28 20:27] VITALS: BP 125/74
[2024-09-28] MEDS: DILAUDID 0.25 MG IV (22:45)
[2024-09-29] MEDS: ATIVAN 2 MG IV ×3 (04:22→13:41)
[2024-09-29] MEDS: ROBINUL 0.2 MG IV ×3 (04:22→13:41)
[2024-09-29] MEDS: DILAUDID 0.25 MG IV (04:23)
[2024-09-29 07:16] VITALS: BP 114/70
[2024-09-29] MEDS: DILAUDID 1 MG IV ×4 (08:06→13:42)
[2024-09-29] MEDS: TRANSDERM-SCOP 1 PATCH TRANSDERM (09:30)
[2024-09-29] MEDS: NSS (PRESERVATIVE FREE) 1 ML IV ×2 (09:32→13:41)
[2024-09-29] MEDS: BENADRYL 25 MG IV (09:35)
--- NOTE | 2024-09-29 09:53 | HOSPNOTE ---
Patient is actively dying. Family is bedside emotional support provided. Patient has increased secretions SCOP patch ordered and placed. Robinol given as scheduled. Patient pulse ox 83% on room air continues on a dilaudid drip. Patient continues to
get PRN pushes when needed. Patient continues to be inpatient appropriate for symptom management and will be seen daily by hospice.
--- NOTE | 2024-09-29 14:30 | PTCARENOTE ---
Patient found with no spontaneous heart sounds or respirations; MD notified.
--- NOTE | 2024-09-29 14:42 | W.PN.DEATH ---
Pronouncement of
-
Called to see patient to pronounce.
No spontaneous heart tones or respirations noted.
Patient not responsive to verbal stimuli.
Patient is pronounced .
Time of : 14:25
Date of : 09/29/24
Cause of : Pancreatic carcinoma
Family Notified: Yes
== END 2024-09-29 14:25 | disposition expired | DRG 951 ==
LOC: 2 NORTH 15:40
PROVIDERS: ADMITTING PHYSICIAN Internal Medicine
DX: Z51.5 Encounter for palliative care (principal); G93.41 Metabolic encephalopathy; C25.9 Malignant neoplasm of pancreas, unspecified; E87.1 Hypo-osmolality and hyponatremia; N17.9 Acute kidney failure, unspecified; I82.401 Acute embolism and thrombosis of unspecified deep veins of right lower extremity; I50.32 Chronic diastolic (congestive) heart failure; R18.8 Other ascites; C78.7 Secondary malignant neoplasm of liver and intrahepatic bile duct; R53.1 Weakness; E86.1 Hypovolemia; I48.0 Paroxysmal atrial fibrillation; I71.40 Abdominal aortic aneurysm, without rupture, unspecified; I11.0 Hypertensive heart disease with heart failure; K21.9 Gastro-esophageal reflux disease without esophagitis; R53.83 Other fatigue; D72.829 Elevated white blood cell count, unspecified; G89.3 Neoplasm related pain (acute) (chronic); Z92.21 Personal history of antineoplastic chemotherapy; Z79.01 Long term (current) use of anticoagulants; Z85.46 Personal history of malignant neoplasm of prostate; Z86.711 Personal history of pulmonary embolism